=== PATIENT | male | born 1970 | race American Indian/Alaskan Native ===

== ENCOUNTER 2017-03-24 06:41 | Inpatient (IN) | payer OTHER ==
[2017-03-24 07:59] LABS: Basophils % (Auto) 0.4 % (0.0-1.8); Eosinophils % (Auto) 1.1 % (0.0-4.3); Hematocrit 42.1 % (35.5-45.6); Hemoglobin 13.7 gm/dl (11.8-15.2); Mean Corpuscular HGB Conc 33 % (32-34); Mean Corpuscular Hemoglobin 27 pg (28-32); Mean Corpuscular Volume 83 fl (84-94); Platelet Count 240 K/mm3 (140-440); Red Cell Distribution Width 13.5 % (13.2-15.2); White Blood Count 10.3 K/mm3 (4.5-11.0)
[2017-03-24 08:12] LABS: Anion Gap 19 mmol/L; BUN/Creatinine Ratio 13.33; Blood Urea Nitrogen 12 mg/dL (9-20); Carbon Dioxide 24 mmol/L (22-30); Chloride 100.6 mmol/L (98-107); Glucose 123 mg/dL (75-100); Potassium 3.3 mmol/L (3.6-5.0); Sodium 140 mmol/L (137-145)
[2017-03-24] MEDS ORDERED: NACL 0.9% 1000 ML 1,000 ML IV ONE (17:34)
[2017-03-24] MEDS ORDERED: MORPHINE IV ONE (17:35)
[2017-03-24] MEDS ORDERED: ZOFRAN IV ONE (17:35)
[2017-03-24] MEDS ORDERED: BABY ASPIRIN PO ONE (17:38)
--- NOTE | 2017-03-24 17:38 | Emergency Department Report ---
HPI - General Chief Complaint: Extremity Injury, Lower Time Seen by Provider: 03/24/17 17:12 - HPI HPI: The patient is a 46-year-old male who presents for evaluation of right foot and toe pain. The patient reports 1 week of constant pain to the right first and second toes, 10/10 in severity, throbbing in quality, exacerbated with attempting weightbearing. The patient also reports associated discoloration of the toes for the past 4-5 days, and purulent drainage or discharge. The patient denies trauma to the toes and foot, fever, also sensation or motor function, spreading erythema. ED Past Medical Hx - Past Medical History Previous Medical History?: Yes Hx Hypertension: Yes Hx Congestive Heart Failure: No Hx Diabetes: No Hx Asthma: No Hx COPD: No - Surgical History Past Surgical History?: No Additional Surgical History: Left leg with blood clot - Social History Smoking Status: Current Every Day Smoker Substance Use Type: Marijuana, Prescribed - Medications Home Medications: Home Medications Medication Instructions Recorded Confirmed Last Taken Type Ibuprofen [Motrin] 800 mg PO Q8HR PRN 10/31/15 10/31/15 1 Week Ago History Clindamycin [Clindamycin CAP] 150 mg PO Q8HR #21 capsule 11/01/15 Unknown Rx ED Review of Systems ROS: Stated complaint: RT FOOT BIG TOE SORE Other details as noted in HPI Constitutional: denies: fever ENT: denies: throat or neck pain Respiratory: denies: cough, shortness of breath Cardiovascular: denies: chest pain Endocrine: denies unexplained weight loss or gain Gastrointestinal: denies: abdominal pain, nausea Genitourinary: denies: dysuria Musculoskeletal: reports foot and toe pain Skin: denies: rash Neurological: denies: headache Hematological/Lymphatic: denies: easy bleeding or easy bruising Psych: denies sadness or hopelessness Physical Exam - Physical Exam Vital Signs: Vital Signs 03/24/17 07:28 Temperature 98.9 F Pulse Rate 117 H Respiratory 20 Rate Blood Pressure 171/104 O2 Sat by Pulse 98 Oximetry Physical Exam: General: well-nourished, well-developed, no acute distress Head: Normocephalic, atraumatic Eyes: normal sclera ENT: Mucous membranes are pale and dry Neck: trachea midline, neck supple, No neck stiffness, no cervical adenopathy Respiratory: Breath sounds equal bilaterally, no wheezing, rales, or rhonchi Cardio: S1 and S2 present, no murmurs, rubs, gallops, capillary refill is delayed Abdomen: Normoactive bowel sounds, soft abdomen, no tenderness Musc: Distal right foot dorsal and plantar erythema and swelling present, right first and second toes necrotic throughout, TTP, with purulent drainage to the proximal phalanx of great toe, dorsalis pedes pulse diminished but present Skin: No rash Neuro: no facial drooping, normal speech Psych: Normal affect ED Course Vital Signs 03/24/17 07:28 Temperature 98.9 F Pulse Rate 117 H Respiratory 20 Rate Blood Pressure 171/104 O2 Sat by Pulse 98 Oximetry ED Medical Decision Making - Lab Data Result diagrams: 03/24/17 07:38 03/24/17 07:38 - Medical Decision Making The patient was seen and examined by myself. The patient is placed on a registered nurse cardiac telemetry and continuous pulse ox. On initial evaluation, the patient was found to be in no distress. Evaluation orders were placed. Evaluation findings are consistent with saline to the distal foot, and necrosis and gangrene of the right first and second toes. The patient given IV morphine for his pain, IV Zosyn for treatment of cellulitis, and 1 L normal saline fluid bolus for treatment of dehydration. Lab results are grossly unremarkable. The on-call orthopedic surgeon Dr. Miller was contacted. He agrees to consultation requested the patient be made nothing by mouth for removal of gangrenous toes in the a.m. The on-call hospitalist was contacted. Dr. Bonds agrees to admit the patient. The patient is admitted in guarded condition. Critical care attestation.: If time is entered above; I have spent that time in minutes in the direct care of this critically ill patient, excluding procedure time. ED Disposition Clinical Impression: Gangrene of toe, Cellulitis of foot, right, Dehydration, Hypertensive urgency Disposition: OP ADMITTED IP TO THIS HOSP Is pt being admited?: Yes Does the pt Need Aspirin: Yes Condition: Fair Referrals: PRIMARY CARE, [Primary Care Provider] - 3-5 Days Time of Disposition: 17:38
[2017-03-24] MEDS: ZOSYN/NS 3.375GM/50ML 3.375 GM/50 ML BAG IV SCH (18:00)
[2017-03-24 18:26] LABS: INR 1.07 (0.87-1.13)
[2017-03-24 18:27] LABS: Partial Thromboplastin Time 26.7 Sec. (24.2-36.6)
--- NOTE | 2017-03-24 18:56 | Admit Criteria Form ---
Admission Criteria Documentation: SKIN AND WOUND CARE Clinical Indications for Inpatient Care (Place 'X' for any and all applicable criteria): Ongoing inpatient care may be indicated for pressure, venous, arterial, or neuropathic ulcers, with ANY ONE of the following (2)(3)(8)(9)(21)(25): [ ]I. Need for ANY ONE of the following(26) [ ]a) Pressure ulcer closure procedures [ ]b) Skin grafting [ ]c) Wound debridement [ ]d) Dressing change under general anesthesia [ ]e) Arterial revascularization procedures(19) (Also use Aortofemoral or Aortoiliac Bypass or Femoral Popliteal Bypass Criteria as appropriate) [ ]f) Amputation (Also use Foot: Transmetatarsal Amputation or Knee: Amputation Above or Below Knee Criteria as appropriate) [ ]g) Diverting colostomy [ ]h) Other significant surgical treatment [X ]II. Infection requiring inpatient care as indicated by ALL of the following (27) [X ]a) ANY ONE of the following signs of infection: [ ]i) Poorly approximated incision line. [ ]ii) Excessive drainage [ ]iii) Foul odor [X ]iv) Pus [ ]v) Increased redness [ ]vi) Breakdown in tissue after suture removal [ ]vii) Fever [ X]b) ANY ONE of the following findings: [ ]i) Mental status changes [X ]ii) Dehydration [ ]iii) Bacteremia [ ]iv) Perineal infection [ ]v) Hemodynamic instability [ ]vi) High-risk conditions, such as ANY ONE of the following: [ ]1) Poorly controlled diabetes [ ]2) Cirrhosis [ ]3) Neutropenia [ ]4) Asplenia [ ]5) HIV infection [ ]6) Immunosuppression Extended stay beyond goal length of stay for primary condition may be needed until ALL of the following are present(1)(2)(13)(21)(27): [ ]a) Tissue necrosis absent or treatment plan manageable at lower level of care [ ]b) Fistulas, tunneling, or underlying deep tissue infection absent or treated [ ]c) Purulence and tissue breakdown absent or improved [ ]d) Ulcer surgical repair absent or healing without complications [ ]e) Wound infection absent or manageable at lower level of care [ ]f) Comorbidities absent or manageable at lower level of care The original [employer] content created by [employer] has been revised. The portions of the content which have been revised are identified through the use of italic text or in bold, and [facility] has neither reviewed nor approved the modified material. All other unmodified content is copyright [facility]. Please see references footnoted in the original [facility] edition 2016 Admission Criteria Met: Yes
--- NOTE | 2017-03-24 22:35 | History and Physical Report ---
History of Present Illness Chief complaint: My foot hurts History of present illness: 46 YO Male with HTN, Nicotine Dependence presents to ED for evaluation. Pt states that he has experienced pain in his right foot and toes for the past week , with worsening pain over the past 2 days. Pain is 10/10 in severity, throbbing in quality, exacerbated with weight bearing, putting on shoes and socks. The patient also reports associated discoloration of the toes for the past 4-5 days, and purulent drainage or discharge. The patient denies trauma to the toes and foot, fever, chills, CP, palpitations. Past History Past Medical History: hypertension Past Surgical History: No surgical history, Other (reviewed) Social history: single, lives with family, smoking. denies: alcohol abuse, prescription drug abuse, IV drug use Family history: hypertension Medications and Allergies Allergies Allergy/AdvReac Type Severity Reaction Status Date / Time No Known Allergies Allergy Verified 10/31/15 12:07 Home Medications Medication Instructions Recorded Confirmed Last Taken Type No Known Home Medications [No 03/24/17 03/24/17 Unknown History Reported Home Medications] Active Meds: Active Medications Piperacillin Sod/Tazobactam Sod (Zosyn/Ns 3.375gm/50ml) 3.375 gm in 50 mls @ 100 mls/hr IV Q6HR CHANDA Last Admin: 03/24/17 18:00 Dose: 100 mls/hr Review of Systems All systems: negative Constitutional: other (foot pain) Exam - Constitutional Vitals: Temp Pulse Resp BP Pulse Ox 98.9 F 79 17 164/102 98 03/24/17 07:28 03/24/17 18:00 03/24/17 18:00 03/24/17 19:01 03/24/17 19:01 General appearance: Present: mild distress - EENT Eyes: Present: PERRL ENT: hearing intact, clear oral mucosa - Neck Neck: Present: supple, normal ROM - Respiratory Respiratory effort: normal Respiratory: bilateral: CTA - Cardiovascular Heart Sounds: Present: S1 & S2. Absent: rub, click - Extremities Extremities: pulses symmetrical, No edema Extremity abnormal: cyanosis, ulceration, erythema, pulses diminished Peripheral Pulses: within normal limits - Abdominal General gastrointestinal: Present: soft, non-tender, non-distended, normal bowel sounds Male genitourinary: Present: normal - Integumentary Integumentary: Present: clear, warm, dry - Musculoskeletal Musculoskeletal: gait normal, strength equal bilaterally - Psychiatric Psychiatric: appropriate mood/affect, intact judgment & insight - Neurologic Neurologic: CNII-XII intact, moves all extremities Results - Labs CBC & Chem 7: 03/24/17 07:38 03/24/17 07:38 Labs: Abnormal lab results 03/24/17 03/24/17 Range/Units 07:38 07:38 RBC 5.10 H (3.65-5.03) M/mm3 MCV 83 L (84-94) fl MCH 27 L (28-32) pg Potassium 3.3 L (3.6-5.0) mmol/L Glucose 123 H (75-100) mg/dL Assessment and Plan - Patient Problems (1) Cellulitis of foot, right Current Visit: Yes Status: Acute Plan to address problem: IV abx, wound care, ortho surgery consult, supportive care, pain control (2) Gangrene of toe Current Visit: Yes Status: Acute Plan to address problem: wound care, IV abx, supportive care. (3) Hypertensive urgency Current Visit: Yes Status: Acute Plan to address problem: monitor BP q shift, continue current therapy (4) Hypokalemia Current Visit: No Status: Acute Plan to address problem: repleted in ED (5) DVT prophylaxis Current Visit: Yes Status: Acute
[2017-03-24] MEDS ORDERED: MILK OF MAGNESIA PO PRN (23:33)
[2017-03-24] MEDS ORDERED: TYLENOL PO PRN (23:33)
[2017-03-24] MEDS ORDERED: DULCOLAX PR PRN (23:33)
[2017-03-24] MEDS ORDERED: ZOFRAN IV PRN (23:33)
[2017-03-24] MEDS ORDERED: VANCOMYCIN PHARMACY TO DOSE IV SCH (23:45)
[2017-03-25] MEDS ORDERED: VANCOMYCIN 1,750 MG in NACL 0.9% 500 ML 500 ML IV ONE
[2017-03-25] MEDS ORDERED: ZOSYN/NS 3.375GM/50ML 3.375 GM/50 ML BAG IV ONE (00:36)
[2017-03-25] MEDS: ZOSYN/NS 3.375GM/50ML 3.375 GM/50 ML BAG IV SCH ×5 (01:18→19:55)
[2017-03-25] MEDS: PERCOCET 5/325 PO PRN ×2 (02:13→19:53)
--- NOTE | 2017-03-25 07:41 | Vascular Lab Report ---
RIGHT LOWER EXTREMITY ARTERIAL DUPLEX: REASON FOR EXAM: Right gangrenous toe. COMMENTS ON THE RIGHT: Monophasic waveforms are seen proximally. Monophasic waveforms are seen distally. Decreased flow velocity noted in the distal vessels. Mild diffuse plaque is seen in all the vessels.. Findings are consistent with abnormal perfusion. Findings are inconsistent with the ability to heal distal wounds. IMPRESSION: RIGHT: No identifiable stenosis in the vessels examined. However waveforms suggest inflow disease. Clinical correlation recommended..
--- NOTE | 2017-03-25 07:42 | XRay Report ---
AP CHEST: HISTORY: Hypertension, preoperative evaluation AP view of the chest demonstrates a normal mediastinal and cardiac contour with clear lungs and normal bony and soft tissue structures. IMPRESSION: Unremarkable AP chest.
--- NOTE | 2017-03-25 07:50 | Vascular Lab Report ---
Right Lower Extremity Venous Duplex Study: Reason for Exam: History of abnormal blood clot formation. Comments on the Right: All veins visualized are freely compressible without evidence of internal echogenicity. Flow is spontaneous and phasic throughout. No evidence of acute or chronic thrombus is seen in any of the vessels visualized. Comments on the Left: A limited duplex study was done of the proximal veins of the left lower extremity. All veins visualized are freely compressible without evidence of internal echogenicity. Flow is spontaneous and phasic throughout. No evidence of acute or chronic thrombus is seen in any of the vessels visualized. Impression: No evidence of acute or chronic deep venous thrombosis in the right lower extremity.
--- NOTE | 2017-03-25 08:32 | XRay Report ---
Right first and second toes. History: Gangrene. Findings: There has been partial limitation of the fifth distal phalanx. There is lytic activity at the tip of the third distal phalanx. This may be chronic but acute osteomyelitis cannot be excluded. The bones of the first and second toes are unremarkable. Soft tissue gas is noted. Impression: Mild osteolytic activity at the tip of the third distal phalanx. Clinical correlation is advised.
[2017-03-25] MEDS ORDERED: SUBLIMAZE IV SCH (09:28)
[2017-03-25] MEDS ORDERED: ZOFRAN IV PRN (09:33)
[2017-03-25] MEDS ORDERED: DILAUDID IV PRN (09:33)
[2017-03-25] MEDS ORDERED: PEPCID PO NR (10:00)
[2017-03-25] MEDS ORDERED: VANCOMYCIN 1,250 MG in NACL 0.9% 250ML 250 ML IV SCH (10:00)
[2017-03-25] MEDS ORDERED: NEURONTIN PO NR (10:00)
[2017-03-25] MEDS ORDERED: VERSED IV NR (10:00)
[2017-03-25] MEDS: VANCOMYCIN 1,250 MG in NACL 0.9% 250ML 250 ML IV SCH ×2 (10:41→19:55)
--- NOTE | 2017-03-25 15:45 | Anesthesia Day of Surgery ---
Anesthesia Day of Surgery - Day of Surgery Patient Examined: Yes Patient H&P Reviewed: Yes Patient is NPO: Yes
--- NOTE | 2017-03-25 15:47 | Anesthesia Consultation ---
Anesthesia Consult and Med Hx Date of service: 03/25/17 - Airway Anesthetic Teeth Evaluation: Good ROM Head & Neck: Adequate Mental/Hyoid Distance: Adequate Mallampati Class: Class II Intubation Access Assessment: Probably Good - Pulmonary Exam CTA: Yes - Cardiac Exam Cardiac Exam: RRR - Pre-Operative Health Status ASA Pre-Surgery Classification: ASA3 Proposed Anesthetic Plan: General - Pulmonary Hx Smoking: Yes (current, has not smoked in 1 week) Hx Asthma: No COPD: No Hx Pneumonia: No - Cardiovascular System Hx Hypertension: Yes Hx Peripheral Vascular Disease: Yes (left leg stent) - Central Nervous System Hx Seizures: No Hx Back Pain: No - Endocrine Hx End Stage Renal Disease: No Hx Hyperthyroidism: No - Hematic Hx Anemia: No - Other Systems Hx Obesity: No
[2017-03-25] MEDS: LACTATED RINGERS 1,000 ML IV SCH ×2 (16:15→19:55)
--- NOTE | 2017-03-25 16:26 | Consultation ---
History of Present Illness - HPI Consult date: 03/25/17 Consult reason: other (gangrene right 1+2 toes) History of present illness: 46 years old admitted with gangrene involving the right first, second toe, Escher formation over the tip of the third. Nondiabetic. Past History Past Medical History: hypertension Past Surgical History: No surgical history, Other (reviewed) Social history: single, lives with family, smoking. denies: alcohol abuse, prescription drug abuse, IV drug use Family history: hypertension Medications and Allergies Allergies Allergy/AdvReac Type Severity Reaction Status Date / Time No Known Allergies Allergy Verified 10/31/15 12:07 Home Medications Medication Instructions Recorded Confirmed Last Taken Type No Known Home Medications [No 03/24/17 03/24/17 Unknown History Reported Home Medications] Active Meds: Active Medications Acetaminophen (Tylenol) 650 mg PO Q4H PRN PRN Reason: Pain MILD(1-3)/Fever >100.5/LANDRY Bisacodyl (Dulcolax) 10 mg ID QDAY PRN PRN Reason: Constipation unrelieved by MOM Celecoxib (Celebrex) 200 mg PO PREOP NR Stop: 03/25/17 23:00 Last Admin: 03/25/17 16:13 Dose: 200 mg Enoxaparin Sodium (Lovenox) 40 mg SUB-Q QDAY@2200 CHANDA Famotidine (Pepcid) 20 mg PO PREOP NR Stop: 03/25/17 23:00 Last Admin: 03/25/17 16:13 Dose: 20 mg Fentanyl (Sublimaze) 100 mcg IV ONCE CHANDA Stop: 03/25/17 23:00 Gabapentin (Neurontin) 300 mg PO PREOP NR Stop: 03/25/17 23:00 Last Admin: 03/25/17 16:13 Dose: 300 mg Hydromorphone HCl (Dilaudid) 0.5 mg IV Q10MIN PRN PRN Reason: Pain , Severe (7-10) Stop: 03/25/17 23:00 Piperacillin Sod/Tazobactam Sod (Zosyn/Ns 3.375gm/50ml) 3.375 gm in 50 mls @ 100 mls/hr IV Q6HR [facility] Last Infusion: 03/25/17 07:27 Dose: Infused Vancomycin HCl 1,250 mg/ (Sodium Chloride) 275 mls @ 166.667 mls/hr IV Q8H CHANDA Last Admin: 03/25/17 10:41 Dose: 166.667 mls/hr Lactated Ringer's (Lactated Ringers) 1,000 mls @ 100 mls/hr IV DIRECT [facility] Last Admin: 03/25/17 16:15 Dose: 100 mls/hr Magnesium Hydroxide (Milk Of Magnesia) 30 ml PO Q4H PRN PRN Reason: Constipation Midazolam HCl (Versed) 2 mg IV PREOP NR Stop: 03/25/17 23:59 Ondansetron HCl (Zofran) 4 mg IV Q8H PRN PRN Reason: N/V unrelieved by Reglan Oxycodone/Acetaminophen (Percocet 5/325) 1 tab PO Q6H PRN PRN Reason: Pain, Moderate (4-6) Last Admin: 03/25/17 02:13 Dose: 1 tab Vancomycin HCl (Vancomycin Pharmacy To Dose) 1 each IV PKCONSULT CHANDA PRN Reason: Protocol Review of Systems All systems: negative Physical Examination - Physical exam Eyes: PERRL ENT: Positive: clear oral mucosa Respiratory effort: normal Respiratory: bilateral: CTA Rhythm: regular Heart Sounds: Positive: S1 & S2 General gastrointestinal: Positive: soft, non-tender, non-distended, normal bowel sounds Integumentary: clear, warm, dry Neurologic: Positive: CNII-XII intact, moves all extremities, gait normal. Negative: focal deficits - Ankle & Foot right Foot appearance: other (Dry gangrene right great toe demarcated, distal to the MTP joint. Dry gangrene of the second toe demarcated distal to the middle of the proximal phalanx, Escher at the distal tip of the third toe with elevated nail. Pedal pulses palpated satisfactory, sensations intact.) - Cervical Spine Neck pain: none Tenderness with palpation: none Full ROM: yes ROM: flexion: normal ROM: extension: normal ROM: rotation right: normal ROM: rotation left: normal ROM: lateral flexion right: normal ROM: lateral flexion left: normal - Lumbar Spine Back pain: none Tenderness with palpation: none Appearance: normal Full ROM: yes ROM: flexion: normal ROM: extension: normal ROM: rotation right: normal ROM: rotation left: normal ROM: lateral flexion right: normal ROM: lateral flexion left: normal Assessment and Plan - Patient Problems (1) Gangrene of toe of right foot Current Visit: Yes Status: Acute Plan to address problem: Amputation 1st and 2ed toes, debridement of escher 3 ed toe
[2017-03-25] MEDS ORDERED: DIPRIVAN 10 MG/ML IV ONE (17:14)
[2017-03-25] MEDS ORDERED: DILAUDID ONE (17:16)
[2017-03-25] MEDS ORDERED: NACL 0.9% IR ONE (17:29)
--- NOTE | 2017-03-25 18:01 | Procedure Note ---
Date of procedure: 03/25/17 Pre-op diagnosis: Gangrene right 1st &2ed toes Post-op diagnosis: same Procedure: Amputation right 1&2 toes Anesthesia: GETA Surgeon: PIETER VÁZQUEZ Estimated blood loss: minimal Pathology: list (toes) Specimen disposition: to lab Condition: stable Disposition: PACU
[2017-03-25] MEDS ORDERED: XYLOCAINE MPF 2% ONE (18:04)
[2017-03-25] MEDS ORDERED: ZOFRAN ONE (18:04)
[2017-03-25] MEDS ORDERED: TORADOL ONE (18:12)
[2017-03-25] MEDS ORDERED: NORMODYNE IV ONE (18:27)
--- NOTE | 2017-03-25 19:04 | Post Anesthesia Evaluation ---
- Post Anesthesia Evaluation Patient Participated: Yes Airway Patent: Yes Stable Respiratory Function: Yes Temp > 96.8F: Yes Pain Manageable: Yes Adequeate Hydration: Yes Anesthesia Complications: No Block Receding Appropriately: Not Applicable
--- NOTE | 2017-03-25 21:22 | Progress Note ---
Assessment and Plan Assessment and plan: 1. Gangrene right toes with Cellulitis right foot Started on antibiotics Ortho consulted and plans amputation 2. HTN Not on medications Monitor BP 3. Noncomplaince Counseled regarding importance of adherence to treatment and follow-up appointments 4. DVT prophylaxis History Interval history: right foot pain Hospitalist Physical - Constitutional Vitals: Temp Pulse Resp BP Pulse Ox 98.1 F 74 16 145/96 96 03/25/17 19:00 03/25/17 19:00 03/25/17 19:53 03/25/17 19:00 03/25/17 19:00 General appearance: Present: no acute distress, well-nourished - EENT Eyes: Present: PERRL, EOM intact. Absent: scleral icterus, conjunctival injection - Neck Neck: Present: supple, normal ROM. Absent: masses or JVD - Respiratory Respiratory effort: normal Respiratory: bilateral: CTA, negative: rhonchi, wheezing - Cardiovascular Rhythm: regular Heart Sounds: Present: S1 & S2. Absent: systolic murmur - Extremities Extremities: no ischemia - Abdominal General gastrointestinal: soft, non-tender, non-distended, normal bowel sounds - Psychiatric Psychiatric: cooperative - Neurologic Neurologic: CNII-XII intact, no focal deficits Results - Labs CBC & Chem 7: 03/24/17 07:38 03/24/17 07:38 Labs: Laboratory Last Values WBC 10.3 K/mm3 (4.5-11.0) 03/24/17 07:38 RBC 5.10 M/mm3 (3.65-5.03) H 03/24/17 07:38 Hgb 13.7 gm/dl (11.8-15.2) 03/24/17 07:38 Hct 42.1 % (35.5-45.6) 03/24/17 07:38 MCV 83 fl (84-94) L 03/24/17 07:38 MCH 27 pg (28-32) L 03/24/17 07:38 MCHC 33 % (32-34) 03/24/17 07:38 RDW 13.5 % (13.2-15.2) 03/24/17 07:38 Plt Count 240 K/mm3 (140-440) 03/24/17 07:38 Lymph % (Auto) 28.2 % (13.4-35.0) 03/24/17 07:38 [place] % (Auto) 4.4 % (0.0-7.3) 03/24/17 07:38 Eos % (Auto) 1.1 % (0.0-4.3) 03/24/17 07:38 Baso % (Auto) 0.4 % (0.0-1.8) 03/24/17 07:38 Lymph # 2.9 K/mm3 (1.2-5.4) 03/24/17 07:38 [place] # 0.5 K/mm3 (0.0-0.8) 03/24/17 07:38 Eos # 0.1 K/mm3 (0.0-0.4) 03/24/17 07:38 Baso # 0.0 K/mm3 (0.0-0.1) 03/24/17 07:38 Seg Neutrophils % 65.9 % (40.0-70.0) 03/24/17 07:38 Seg Neutrophils # 6.8 K/mm3 (1.8-7.7) 03/24/17 07:38 PT 13.8 Sec. (12.2-14.9) 03/24/17 17:51 INR 1.07 (0.87-1.13) 03/24/17 17:51 APTT 26.7 Sec. (24.2-36.6) 03/24/17 17:51 Sodium 140 mmol/L (137-145) 03/24/17 07:38 Potassium 3.3 mmol/L (3.6-5.0) L 03/24/17 07:38 Chloride 100.6 mmol/L (98-107) 03/24/17 07:38 Carbon Dioxide 24 mmol/L (22-30) 03/24/17 07:38 Anion Gap 19 mmol/L 03/24/17 07:38 BUN 12 mg/dL (9-20) 03/24/17 07:38 Creatinine 0.9 mg/dL (0.8-1.5) 03/24/17 07:38 Estimated GFR > 60 ml/min 03/24/17 07:38 BUN/Creatinine Ratio 13.33 % 03/24/17 07:38 Glucose 123 mg/dL (75-100) H 03/24/17 07:38 Lactic Acid 1.10 mmol/L (0.7-2.0) 03/24/17 17:51 Calcium 9.0 mg/dL (8.4-10.2) 03/24/17 07:38 C-Reactive Protein 0.30 mg/dL (0.00-1.30) 03/24/17 17:51
[2017-03-25] MEDS: LOVENOX SUB-Q SCH (21:38)
[2017-03-25] MEDS: MORPHINE IV PRN (21:46)
--- NOTE | 2017-03-25 22:41 | Operative Report ---
PREOPERATIVE DIAGNOSIS: Gangrene, right first and second toe, tip of the third toe. POSTOPERATIVE DIAGNOSES: 1. Amputation, right first and second toe. 2. Debridement of the eschar third toe. SURGEON: Carrie Garcia MD SPOT WELDER LINE: Jo-Ann Fernandes CSA. ANESTHESIA: General. BLOOD LOSS: Minimal. DESCRIPTION OF PROCEDURE: The patient was taken to surgery suite, satisfactory analgesia obtained with general anesthetics. Right lower limb prepped with ChloraPrep, satisfactorily draped. The correct patient, procedure and site was confirmed. The first toe was identified and isolated. Incision was made along the demarcation and was deepened. Skin flaps were developed and the toe was disarticulated the MTP joint. The proximal flap appeared adequate circulation. In a similar fashion, the incision was made along the line of demarcation, deepened through the full thickness, skin flaps were developed and the phalanx was then disarticulated at the metatarsophalangeal joint. The flap incision edges were then revised. The wound was then closed with 3-0 nylon sutures and the closure appeared satisfactory. At this time, the eschar was noticed over the distal tip of the third toe. This was then debrided by blunt dissection and the hyperkeratotic needle was extracted. Wound was irrigated again. Sterile dressings were applied. The patient was transferred to recovery room in satisfactory condition. He tolerated the procedure well and at the completion of procedure, counts were accurate. JOB# [id number] JAMIA/RAMSEY AMOR
[2017-03-26] MEDS: ZOSYN/NS 3.375GM/50ML 3.375 GM/50 ML BAG IV SCH ×4 (00:53→17:52)
[2017-03-26] MEDS: PERCOCET 5/325 PO PRN ×5 (01:19→22:20)
[2017-03-26] MEDS: VANCOMYCIN 1,250 MG in NACL 0.9% 250ML 250 ML IV SCH ×3 (01:20→17:54)
[2017-03-26] MEDS: MORPHINE IV PRN ×2 (02:52→13:35)
--- NOTE | 2017-03-26 07:38 | Progress Note ---
Assessment and Plan S/P amputation giovanni 1-2 toes dressing dry, no new changes, recuperated well from anesthesia. Subjective Date of service: 03/26/17 Objective Vital signs: Vital Signs - 12hr 03/25/17 03/25/17 03/25/17 19:53 21:46 21:58 Temperature Pulse Rate [ Left From Monitor] Respiratory 16 18 18 Rate Blood Pressure [Left Arm] O2 Sat by Pulse Oximetry 03/26/17 03/26/17 03/26/17 00:07 01:19 02:52 Temperature 98.5 F Pulse Rate [ 80 Left From Monitor] Respiratory 18 18 18 Rate Blood Pressure 137/85 [Left Arm] O2 Sat by Pulse 99 Oximetry 03/26/17 07:08 Temperature Pulse Rate [ Left From Monitor] Respiratory 18 Rate Blood Pressure [Left Arm] O2 Sat by Pulse Oximetry - Labs CBC & BMP: 03/24/17 07:38 03/24/17 07:38
[2017-03-26] MEDS: LACTATED RINGERS 1,000 ML IV SCH (17:52)
--- NOTE | 2017-03-26 22:02 | Progress Note ---
Assessment and Plan Assessment and plan: 1. Gangrene right toes Started on antibiotics Ortho consulted and status post amputation first and second right toes Pain control medications Consult PT 2. HTN Not on medications at home Start amlodipine and continue to monitor BP 3. Noncomplaince Counseled regarding importance of adherence to treatment and follow-up appointments 4. DVT prophylaxis History Interval history: s/p amputation right first and second toes, c/o pain Hospitalist Physical - Constitutional Vitals: Temp Pulse Resp BP Pulse Ox 98.2 F 97 H 16 162/87 99 03/26/17 16:00 03/26/17 16:00 03/26/17 20:52 03/26/17 16:00 03/26/17 07:00 General appearance: Present: no acute distress, well-nourished - EENT Eyes: Present: PERRL, EOM intact. Absent: scleral icterus, conjunctival injection - Neck Neck: Present: supple, normal ROM. Absent: masses or JVD - Respiratory Respiratory effort: normal Respiratory: bilateral: CTA, negative: rhonchi, wheezing - Cardiovascular Rhythm: regular Heart Sounds: Present: S1 & S2. Absent: systolic murmur - Extremities Extremities: abnormal (dressing in place right foot) - Abdominal General gastrointestinal: soft, non-tender, non-distended, normal bowel sounds - Neurologic Neurologic: no focal deficits Results - Labs CBC & Chem 7: 03/24/17 07:38 03/24/17 07:38 Labs: Laboratory Last Values WBC 10.3 K/mm3 (4.5-11.0) 03/24/17 07:38 RBC 5.10 M/mm3 (3.65-5.03) H 03/24/17 07:38 Hgb 13.7 gm/dl (11.8-15.2) 03/24/17 07:38 Hct 42.1 % (35.5-45.6) 03/24/17 07:38 MCV 83 fl (84-94) L 03/24/17 07:38 MCH 27 pg (28-32) L 03/24/17 07:38 MCHC 33 % (32-34) 03/24/17 07:38 RDW 13.5 % (13.2-15.2) 03/24/17 07:38 Plt Count 240 K/mm3 (140-440) 03/24/17 07:38 Lymph % (Auto) 28.2 % (13.4-35.0) 03/24/17 07:38 [place] % (Auto) 4.4 % (0.0-7.3) 03/24/17 07:38 Eos % (Auto) 1.1 % (0.0-4.3) 03/24/17 07:38 Baso % (Auto) 0.4 % (0.0-1.8) 03/24/17 07:38 Lymph # 2.9 K/mm3 (1.2-5.4) 03/24/17 07:38 [place] # 0.5 K/mm3 (0.0-0.8) 03/24/17 07:38 Eos # 0.1 K/mm3 (0.0-0.4) 03/24/17 07:38 Baso # 0.0 K/mm3 (0.0-0.1) 03/24/17 07:38 Seg Neutrophils % 65.9 % (40.0-70.0) 03/24/17 07:38 Seg Neutrophils # 6.8 K/mm3 (1.8-7.7) 03/24/17 07:38 PT 13.8 Sec. (12.2-14.9) 03/24/17 17:51 INR 1.07 (0.87-1.13) 03/24/17 17:51 APTT 26.7 Sec. (24.2-36.6) 03/24/17 17:51 Sodium 140 mmol/L (137-145) 03/24/17 07:38 Potassium 3.3 mmol/L (3.6-5.0) L 03/24/17 07:38 Chloride 100.6 mmol/L (98-107) 03/24/17 07:38 Carbon Dioxide 24 mmol/L (22-30) 03/24/17 07:38 Anion Gap 19 mmol/L 03/24/17 07:38 BUN 12 mg/dL (9-20) 03/24/17 07:38 Creatinine 0.9 mg/dL (0.8-1.5) 03/24/17 07:38 Estimated GFR > 60 ml/min 03/24/17 07:38 BUN/Creatinine Ratio 13.33 % 03/24/17 07:38 Glucose 123 mg/dL (75-100) H 03/24/17 07:38 Lactic Acid 1.10 mmol/L (0.7-2.0) 03/24/17 17:51 Calcium 9.0 mg/dL (8.4-10.2) 03/24/17 07:38 C-Reactive Protein 0.30 mg/dL (0.00-1.30) 03/24/17 17:51
[2017-03-26] MEDS: LOVENOX SUB-Q SCH (22:17)
[2017-03-27] MEDS: ZOSYN/NS 3.375GM/50ML 3.375 GM/50 ML BAG IV SCH ×3 (00:27→13:45)
[2017-03-27] MEDS: VANCOMYCIN 1,250 MG in NACL 0.9% 250ML 250 ML IV SCH ×2 (03:36→11:27)
[2017-03-27] MEDS: PERCOCET 5/325 PO PRN ×3 (03:41→14:07)
--- NOTE | 2017-03-27 08:15 | Progress Note ---
Assessment and Plan - Patient Problems (1) Gangrene of toe of right foot Status: Acute Plan to address problem: Disch per Int Medicine, follow up in 2 weeks. crutches/ walker, partial wt bearing., Subjective Date of service: 03/27/17 Interval history: status post amputation first and second toe. Doing well. Objective Vital signs: Vital Signs - 12hr 03/26/17 03/27/17 03/27/17 20:52 00:00 08:09 Temperature 99.8 F H 97.3 F L Pulse Rate [ 88 78 Left From Monitor] Respiratory 16 20 18 Rate Blood Pressure 150/88 156/89 [Left Arm] O2 Sat by Pulse 99 98 Oximetry - Labs CBC & BMP: 03/24/17 07:38 03/24/17 07:38
--- NOTE | 2017-03-27 09:07 | Discharge Summary ---
Providers - Providers Date of Admission: 03/24/17 23:33 Date of discharge: 03/27/17 Attending physician: GONZALEZ WIGGINS MD 03/24/17 23:38 Consult to Wound/ET Nurse [CONS] Routine Reason For Exam: wound eval 03/25/17 19:30 Physical Therapy Evaluation and Treat [CONS] Routine Comment: Reason For Exam: post op Weight bearing status?: Partial wt bearing Assistive devices?: Yes Primary care physician: [facility] [facility] Hospitalization Reason for admission: foot pain Condition: Stable Hospital course: 46 YO Male with HTN, Nicotine Dependence presents to ED for evaluation. Pt states that he has experienced pain in his right foot and toes for the past week , with worsening pain over the past 2 days. Pain is 10/10 in severity, throbbing in quality, exacerbated with weight bearing, putting on shoes and socks. The patient also reports associated discoloration of the toes for the past 4-5 days, and purulent drainage or discharge. The patient denies trauma to the toes and foot, fever, chills, CP, palpitations. Patient was started on empiric antibiotic coverage. We'll listen by orthopedic surgeon and did undergo completion of first and second toes of the right foot. This was considered a surgical treatment. I did give the patient with a few days of antibiotics on discharge. He is clinically stable to be discharged with home health. We did discuss need to be medication compliant and also need to avoid tobacco patient verbalized understanding. He is to follow with orthopedic surgeon outpatient in 2 weeks this has been discussed with the patient and he verbalized understanding Discharge diagnosis 1. Gangrene right toes 2. HTN 3. 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 Tobacco dependence 5. Noncomplaince Disposition: DC/TX HOME UNDER HOME HEALTH Time spent for discharge: 35 MINS Core Measure Documentation - Palliative Care Palliative Care/ Comfort Measures: Not Applicable - Core Measures Any of the following diagnoses?: none - VTE Discharge Requirements Deep Vein Thrombosis/Pulmonary Embolism Present on Admission: No Exam - Physical Exam Narrative exam: VITAL SIGNS: Reviewed. GENERAL: The patient appeared well nourished and normally developed. Vital signs as documented. HEAD: No signs of head trauma. EYES: Pupils are equal. Extraocular motions intact. EARS: Hearing grossly intact. MOUTH: Oropharynx is normal. NECK: No adenopathy, no JVD. CHEST: Chest with clear breath sounds bilaterally. No wheezes, rales, or rhonchi. CARDIAC: Regular rate and rhythm. S1 and S2, without murmurs, gallops, or rubs. VASCULAR: No Edema. Peripheral pulses normal and equal in all extremities. ABDOMEN: Soft, without detectable tenderness. No sign of distention. No rebound or guarding, and no masses palpated. Bowel Sounds normal. MUSCULOSKELETAL: A stress into the right foot area. Patient underwent amputation of the first and second toes of the right foot Extremities without clubbing, cyanosis or edema. NEUROLOGIC EXAM: Alert and oriented x 3. No focal sensory or strength deficits. Speech normal. Follows commands. PSYCHIATRIC: Mood normal. SKIN: No rash or lesions. - Constitutional Vitals: Temp Pulse Resp BP Pulse Ox 97.3 F L 78 18 156/89 98 03/27/17 08:09 03/27/17 08:09 03/27/17 08:09 03/27/17 08:09 03/27/17 08:09 Plan Activity: advance as tolerated, fall precautions Diet: low fat Special Instructions: record daily BP diary Follow up with: PRIMARY CAREMD [Primary Care Provider] - 3-5 Days PIETER VÁZQUEZ MD [Staff Physician] - 14 Days Prescriptions: amLODIPine [Norvasc] 10 mg PO QDAY #30 tablet Doxycycline [Vibramycin CAP] 100 mg PO Q12HR #14 capsule oxyCODONE /ACETAMINOPHEN [Percocet 5/325 mg] 2 tab PO Q6H PRN #14 tablet PRN Reason: Pain, Moderate (4-6)
[2017-03-27] MEDS: LACTATED RINGERS 1,000 ML IV SCH (09:27)
[2017-03-27] MEDS ORDERED: NORVASC PO SCH (10:00)
[2017-03-27 16:40] VITALS: BP 141/80
== END 2017-03-27 19:29 | disposition home health service (06) | DRG 580 ==
LOC: ED 06:41 → 3A 23:33
PROVIDERS: ADMIT Internal Medicine; ATTEND Internal Medicine
PROC: 0Y6P0Z0 Detachment at Right 1st Toe, Complete, Open Approach (ICD-10-PCS; principal; 2017-03-25)
PROC: 0Y6R0Z0 Detachment at Right 2nd Toe, Complete, Open Approach (ICD-10-PCS; 2017-03-25)
PROC: 0HDMXZZ Extraction of Right Foot Skin, External Approach (ICD-10-PCS; 2017-03-25)
DX: L03.115 Cellulitis of right lower limb (principal); I96 Gangrene, not elsewhere classified; I10 Essential (primary) hypertension; E87.6 Hypokalemia; F17.210 Nicotine dependence, cigarettes, uncomplicated; E86.0 Dehydration; I16.0 Hypertensive urgency; Z91.14 Patient's other noncompliance with medication regimen; Z82.49 Family history of ischemic heart disease and other diseases of the circulatory system
CPT/HCPCS: 36415; 71010; 80048; 80202; 82140; 85025; 85610; 85730; 86140; 88305; 88311; 93005; 93010; 96365; 96375; J1170; J1650; J1885; J2250; J2270; J2405; J2543; J2704; J3370; J7030; J7040; J7050; J7120

== ENCOUNTER 2017-05-28 09:49 | Outpatient (CLI) | payer OTHER ==
[2017-05-28] MEDS ORDERED: XYLOCAINE TOPICAL 4% TP ONE ×2 (11:19→14:19)
[2017-05-29] MEDS ORDERED: NACL ONE (16:35)
== END 2017-05-28 09:50 | disposition home or self-care (01) ==
LOC: WOUND 09:49
PROVIDERS: ATTEND Nurse Practitioner
DX: T81.89XA Other complications of procedures, not elsewhere classified, initial encounter (principal); I70.221 Atherosclerosis of native arteries of extremities with rest pain, right leg; I10 Essential (primary) hypertension; I73.9 Peripheral vascular disease, unspecified; F17.200 Nicotine dependence, unspecified, uncomplicated; Z98.62 Peripheral vascular angioplasty status; Z89.419 Acquired absence of unspecified great toe; Y83.8 Other surgical procedures as the cause of abnormal reaction of the patient, or of later complication, without mention of misadventure at the time of the procedure; Y92.89 Other specified places as the place of occurrence of the external cause
CPT/HCPCS: 87075; 87116; G0463; 87076; 87186; 99215

== ENCOUNTER 2017-05-28 13:12 | Inpatient (IN) | payer OTHER ==
[2017-05-28] MEDS ORDERED: NACL 0.9% 500 ML 500 ML IV ONE (13:32)
[2017-05-28 13:58] LABS: Basophils % (Auto) 0.5 % (0.0-1.8); Eosinophils % (Auto) 0.5 % (0.0-4.3); Hemoglobin 14.1 gm/dl (11.8-15.2); Mean Corpuscular HGB Conc 33 % (32-34); Mean Corpuscular Hemoglobin 27 pg (28-32); Mean Corpuscular Volume 83 fl (84-94); Platelet Count 251 K/mm3 (140-440); Red Cell Distribution Width 14.9 % (13.2-15.2); White Blood Count 9.7 K/mm3 (4.5-11.0)
[2017-05-28 14:08] LABS: INR 1.05 (0.87-1.13)
[2017-05-28 14:25] LABS: Alanine Aminotransferase 16 units/L (7-56); Albumin 4.3 g/dL (3.9-5); Albumin/Globulin Ratio 1.2 %; Alkaline Phosphatase 93 units/L (35-129); Anion Gap 19 mmol/L; BUN/Creatinine Ratio 11.81; Blood Urea Nitrogen 13 mg/dL (9-20); Calcium 9.1 mg/dL (8.4-10.2); Carbon Dioxide 25 mmol/L (22-30); Chloride 98.4 mmol/L (98-107); Glucose 150 mg/dL (75-100); Potassium 3.7 mmol/L (3.6-5.0); Sodium 139 mmol/L (137-145); Total Protein 7.8 g/dL (6.3-8.2)
--- NOTE | 2017-05-28 16:17 | XRay Report ---
PORTABLE CHEST: Fever. An AP portable view of the chest demonstrates a normal cardiac contour considering the limits of this technique. The lungs are clear with no evidence of infiltrate, fluid or failure. IMPRESSION: Normal portable chest.
[2017-05-28] MEDS ORDERED: PERCOCET 5/325 PO ONE (16:23)
--- NOTE | 2017-05-28 17:09 | Emergency Department Report ---
ED Extremity Problem HPI - General Chief complaint: Extremity Problem,Nontraumatic Stated complaint: WOUND CHECK Time Seen by Provider: 05/28/17 16:11 Source: patient Mode of arrival: Ambulatory Limitations: Physical Limitation - History of Present Illness Initial comments: 47-year-old male with history of peripheral vascular disease is presenting to the ED sent here by his vascular surgery provider. Patient states he has had the clinic getting his wound care from previous amputation of the first and second digits of the right foot when the provider stated that she could not find a pulse of his right foot and told the patient to come immediately to the ED. Patient has no complaints. Patient denies pain or coolness of the leg. -: Gradual Location: right, lower extremity History of Same: Yes Severity scale (0 -10): 0 Quality: other (no pain ) Improves with: nothing Worsens with: nothing - Related Data Home Medications Medication Instructions Recorded Confirmed Last Taken Ibuprofen [Motrin] 800 mg PO Q4-6H PRN 05/28/17 05/28/17 05/28/17 Ranitidine HCl [Heartburn Relief] 75 mg PO QDAY PRN 05/28/17 05/28/17 Unknown Previous Rx's Medication Instructions Recorded Last Taken Type amLODIPine [Norvasc] 10 mg PO QDAY #30 tablet 03/27/17 05/26/17 Rx oxyCODONE /ACETAMINOPHEN [Percocet 2 tab PO Q6H PRN #14 tablet 03/27/17 Unknown Rx 5/325 mg] Allergies Allergy/AdvReac Type Severity Reaction Status Date / Time No Known Allergies Allergy Verified 10/31/15 12:07 ED Review of Systems ROS: Stated complaint: WOUND CHECK Other details as noted in HPI Constitutional: denies: chills, fever Eyes: denies: eye pain, eye discharge, vision change ENT: denies: ear pain, throat pain Respiratory: denies: cough, shortness of breath, wheezing Cardiovascular: denies: chest pain, palpitations Endocrine: no symptoms reported Gastrointestinal: denies: abdominal pain, nausea, diarrhea Genitourinary: denies: urgency, dysuria Musculoskeletal: denies: back pain, joint swelling, arthralgia Skin: denies: rash, lesions Neurological: denies: headache, weakness, paresthesias Psychiatric: denies: anxiety, depression Hematological/Lymphatic: denies: easy bleeding, easy bruising ED Past Medical Hx - Past Medical History Previous Medical History?: Yes Hx Hypertension: Yes Hx Congestive Heart Failure: No Hx Diabetes: No Hx Deep Vein Thrombosis: Yes Hx Seizures: No Hx Asthma: No Hx COPD: No Additional medical history: Vascular Disease - Surgical History Additional Surgical History: Left leg with blood clot,. 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 - Social History Smoking Status: Current Every Day Smoker Substance Use Type: None - Medications Home Medications: Home Medications Medication Instructions Recorded Confirmed Last Taken Type amLODIPine [Norvasc] 10 mg PO QDAY #30 tablet 03/27/17 05/28/17 05/26/17 Rx oxyCODONE /ACETAMINOPHEN [Percocet 2 tab PO Q6H PRN #14 tablet 03/27/17 Unknown Rx 5/325 mg] Ibuprofen [Motrin] 800 mg PO Q4-6H PRN 05/28/17 05/28/17 05/28/17 History Ranitidine HCl [Heartburn Relief] 75 mg PO QDAY PRN 05/28/17 05/28/17 Unknown History ED Physical Exam - General Limitations: Physical Limitation General appearance: alert, in no apparent distress - Head Head exam: Present: atraumatic, normocephalic - Eye Eye exam: Present: normal appearance - ENT ENT exam: Present: mucous membranes moist - Neck Neck exam: Present: normal inspection - Respiratory Respiratory exam: Present: normal lung sounds bilaterally. Absent: respiratory distress - Cardiovascular Cardiovascular Exam: Present: regular rate, normal rhythm. Absent: systolic murmur, diastolic murmur, rubs, gallop - GI/Abdominal GI/Abdominal exam: Present: soft, normal bowel sounds - Rectal Rectal exam: Present: deferred - Extremities Exam Extremities exam: Present: other (right lower extremity: pt has dopplerable PT pulse, cannot appreciate DP pulse with doppler. No pulse apprecaited on palpation. amputated 1st and second digit, healing well. Foot is warm. Cap refill delayed. left lower extremity DP and Pt pulses appreciated ). Absent: pedal edema, calf tenderness - Back Exam Back exam: Present: normal inspection - Neurological Exam Neurological exam: Present: alert, oriented X3 - Psychiatric Psychiatric exam: Present: normal affect, normal mood - Skin Skin exam: Present: warm, dry, intact, normal color. Absent: rash ED Course Vital Signs 05/28/17 05/28/17 05/28/17 13:28 14:00 14:10 Temperature 98.8 F Pulse Rate 139 H 97 H Respiratory 16 19 Rate Blood Pressure 158/104 143/90 O2 Sat by Pulse 98 97 96 Oximetry 05/28/17 05/28/17 05/28/17 14:20 14:30 14:40 Temperature Pulse Rate 93 H 93 H 93 H Respiratory 20 20 21 Rate Blood Pressure 143/90 133/82 133/82 O2 Sat by Pulse 97 94 97 Oximetry 05/28/17 05/28/17 05/28/17 14:50 15:00 15:10 Temperature Pulse Rate 88 88 88 Respiratory 21 21 20 Rate Blood Pressure 133/82 133/84 133/84 O2 Sat by Pulse 98 98 99 Oximetry 05/28/17 05/28/17 05/28/17 15:20 15:30 15:40 Temperature Pulse Rate 92 H 80 98 H Respiratory 19 20 12 Rate Blood Pressure 133/84 153/108 153/108 O2 Sat by Pulse 99 97 98 Oximetry 05/28/17 05/28/17 05/28/17 15:50 16:00 16:10 Temperature Pulse Rate 99 H 78 81 Respiratory 13 17 20 Rate Blood Pressure 153/108 153/108 161/96 O2 Sat by Pulse 99 100 99 Oximetry 05/28/17 05/28/17 05/28/17 16:20 16:30 16:40 Temperature Pulse Rate 90 96 H 88 Respiratory 19 21 20 Rate Blood Pressure 161/96 154/104 161/96 O2 Sat by Pulse 98 99 99 Oximetry 05/28/17 05/28/17 05/28/17 17:00 17:30 18:00 Temperature Pulse Rate 88 88 85 Respiratory 18 18 17 Rate Blood Pressure 149/101 143/96 151/96 O2 Sat by Pulse 98 99 Oximetry 05/28/17 05/28/17 05/28/17 18:30 19:00 19:30 Temperature Pulse Rate 79 77 78 Respiratory 18 18 16 Rate Blood Pressure 143/96 152/93 157/97 O2 Sat by Pulse 98 97 99 Oximetry 05/28/17 20:00 Temperature Pulse Rate Respiratory Rate Blood Pressure 161/90 O2 Sat by Pulse 100 Oximetry - Reevaluation(s) Reevaluation #1: 05/28/17 17:09 pt resting comfortably, he states he has no complaints Reevaluation #2: 05/28/17 18:46 at 5 :50 pm I discussed this case with vascular surgeon Dr. Del Toro. His recommendation is that pt is stable to follow up outpt, he will see pt in his office tomorrow. He stated reason the ultrasound findings were not acute findings and the patient should not be admitted are as follows: the patient has PT artery that is still perfusing right foot, the patient has no acute pain, no acute neurological deficits, can still ambulate. ED Medical Decision Making - Lab Data Result diagrams: 05/28/17 13:40 05/28/17 13:40 - EKG Data -: EKG Interpreted by Me EKG shows normal: sinus rhythm (89), axis (negative), intervals (447), QRS complexes (86) Rate: normal - EKG Data When compared to previous EKG there are: previous EKG unavailable Interpretation: no acute changes - Medical Decision Making 47-year-old male with past medical history of peripheral vascular disease.\ 1) Lactic acidosis At this time I am unsure of cause. I will admit to medicine service for continued IV hydration. DDX: sepsis unlikely as pt has no complaints, no obvious source 2) peripheral vascular disease chronic for patient Dr. Del Toro-vascular surgery states there is nothing to do overnight, this is not an acute condition. He does not recommend heparin drip at this time he will see patient during inpatient consult. Critical care attestation.: If time is entered above; I have spent that time in minutes in the direct care of this critically ill patient, excluding procedure time. ED Disposition Clinical Impression: Lactic acid acidosis, Peripheral vascular disease Disposition: OP ADMIT IP TO THIS HOSP Is pt being admited?: Yes Does the pt Need Aspirin: No Condition: Stable
[2017-05-28] MEDS ORDERED: NACL 0.9% 1000 ML 1,000 ML IV ONE (18:05)
--- NOTE | 2017-05-28 18:11 | Admit Criteria Form ---
Admission Criteria Documentation: VASCULAR DISEASE GRG Clinical Indications for Admission to Inpatient Care (Place 'X' for any and all applicable criteria): Hospital admission is needed for appropriate care of the patient because of ANY ONE of the following (1)(2)(3)(4): [ ]I. Life-threatening or limb-threatening skin ulcer as indicated by ANY ONE of the following(5): [ ]a) Surrounding cellulitis unresponsive to outpatient treatment [ ]b) Wet gangrene [ ]c) Lymphangitis [ ]d) Bacteremia [ ]II. Gangrene requiring intensity and frequency of care not manageable to outpatient, emergency, or observation level of care(5) [ ]III. Severe pain requiring acute inpatient management [ ]IV. Interventional revascularization (eg, surgery, thrombolysis) needed (eg , critical limb ischemia)(21) [ ]V. Urgent inpatient IV anticoagulation needed due to ALL of the following: [ ]a) Temporary subtherapeutic anticoagulation unacceptable because of high risk of short-term venous or arterial thromboembolism due to ANY ONE of the following(7)(8)(9): [ ]i) Venous thromboembolism within the past 12 months [ ]ii) Underlying malignancy [ ]iii) Patient with mechanical cardiac valve(10)(11) [ ]iv) Underlying hypercoagulable state (eg, protein C or protein S deficiency, antithrombin deficiency, antiphospholipid antibodies) [ ]v) Patient at high risk of thromboembolism (eg, status post orthopedic surgery, history of recurrent venous thromboembolism) [ ]vi) Atrial fibrillation with rheumatic valvular heart disease [ ]vii) Atrial fibrillation with 3 or MORE of the following : [ ]1) Congestive heart failure [ ]2) Hypertension [ ]3) Age 65 years or older [ ]4) Diabetes mellitus [ ]5) History of thromboembolism (eg, stroke, TIA , or systemic embolization) more than 3 months ago [ ]6) Female gender [ ]b) Contraindications to outpatient use of "bridging" agent or alternative oral anticoagulant as indicated by ALL of the following: [ ]i) Contraindication to outpatient use of low-molecular -weight heparin as "bridging" agent as indicated by ANY ONE of the following(8) : [ ]1) Documented current or history of heparin- induced thrombocytopenia(12) [ ]2) Severe thrombocytopenia (eg, platelet count less than 50,000/mm3 (50 x109/L)) [ ]3) Documented allergy to heparin, low- molecular-weight heparin, or pork products [ ]4) Renal failure (creatinine clearance < 30 mL /min/1.73m2 (0.50 mL/sec/1.73m2) or on dialysis) [ ]5) Inability to manage self-injection (eg, by patient, caregiver, or visiting nurse) [ ]ii) Contraindication to outpatient use of fondaparinux as "bridging" agent as indicated by ANY ONE of the following(13)(14)(15)(16): [ ]1) Severe thrombocytopenia (eg, platelet count less than 50,000/mm3 (50 x109/L)) [ ]2) Hypersensitivity to fondaparinux, related drugs, or product components [ ]3) Renal failure (creatinine clearance less than 30 mL/min/1.73m2 (0.50 mL/sec/1.73m2) or on dialysis) [ ]4) Inability to manage self-injection (eg, by patient, caregiver, or visiting nurse) [ ]iii) Oral direct thrombin inhibitor (eg, dabigatran) or oral coagulation factor Xa inhibitor (eg, rivaroxaban) not appropriate as oral anticoagulation (eg, indication not appropriate) or contraindicated (eg, hypersensitivity, renal failure)(13)(16)(17)(18)(19)(20) [X ]. Suspected severe acute ischemia due to peripheral vascular disease as indicated by ANY ONE of the following(5)(6): [ ]a) Tissue necrosis [ ]b) Severe pain [ ]c) Acute pulselessness [X]d) Other evidence of acute severe ischemia (eg, lactic acidosis , motor dysfunction) [ ]VII. Acute or newly diagnosed major vessel (eg, aorta) dissection, rupture, or leakage(5)(6)(22)(23) [ ]VIII.Vascular Disease and ALL of the following: [ ]a) Symptom or finding for which emergency and observation care have failed or are not considered appropriate (Use General Criteria: Observation Care as appropriate) [ ]b) Presence of ANY ONE of the following: [ ]i) A General Admission Criteria [ ]ii) A Pediatric General Admission Criteria The original [facility] content created by [facility] [employer] has been revised. The portions of the content which have been revised are identified through the use of italic text or in bold, and [facility] has neither reviewed nor approved the modified material. All other unmodified content is copyright [facility]. Please see references footnoted in the original [facility] edition 2016 Admission Criteria Met: Yes
[2017-05-28 18:45] LABS: Bacteria,Urine 3+ /HPF (Negative); Bilirubin,Urine NEG (Negative); Blood,Urine NEG (Negative); Ketones,Urine NEG (Negative); Leukocyte Esterase,Urine MOD (Negative); Mucus,Urine FEW /HPF; Nitrite,Urine POS (Negative); Protein,Urine <15 mg/dL mg/dL (Negative); Urobilinogen,Urine < 2.0 mg/dL (<2.0)
--- NOTE | 2017-05-29 04:22 | History and Physical Report ---
History of Present Illness Date of examination: 05/28/17 Date of admission: 05/28/17 20:27 History of present illness: This is a 47-year-old man with a history of peripheral vascular disease, hypertension was sent over from wound care because they couldn't palpate his pulse. In the emergency room he was found to have a palpable pulse but his lactic acid was elevated and he had an abnormal therefore is being admitted for further evaluation Review of systems Constitutional: no fever, no chills, no weight loss Ears, eyes, nose, mouth and throat: no nasal congestion, no nasal discharge, no sinus pressure, no vision change, no red eye. Neck: No neck pain or rigidity. Cardiovascular: chest pain, no orthopnea, no palpitations, no leg swelling Respiratory: No shortness of breath, no cough, no congestion, no wheezing Gastrointestinal: abdominal pain, hematochezia, no nausea, no vomiting Genitourinary : no dysuria, frequency , no hematuria Musculoskeletal: no joint swelling or muscle ache Integumentary: no rash, no pruritis Neurological: no parathesias, no focal weakness Endocrine: no cold or heat intolerance, no polyuria or polydipsia Hematologic/Lymphatic: no easy bruising, no easy bleeding, no gland swelling Allergic/Immunologic: no urticaria, no angioedema. PAST MEDICAL HISTORY:peripheral vascular disease, hypertension PAST SURGICAL HISTORY: And station of the first and second toe on the left foot FAMILY HISTORY: Hypertension SOCIAL HISTORY: Smoke half pack a day, no tobacco or drugs Medications and Allergies Allergies Allergy/AdvReac Type Severity Reaction Status Date / Time No Known Allergies Allergy Verified 10/31/15 12:07 Home Medications Medication Instructions Recorded Confirmed Last Taken Type amLODIPine [Norvasc] 10 mg PO QDAY #30 tablet 03/27/17 05/28/17 05/26/17 Rx oxyCODONE /ACETAMINOPHEN [Percocet 2 tab PO Q6H PRN #14 tablet 03/27/17 Unknown Rx 5/325 mg] Ibuprofen [Motrin] 800 mg PO Q4-6H PRN 05/28/17 05/28/17 05/28/17 History Ranitidine HCl [Heartburn Relief] 75 mg PO QDAY PRN 05/28/17 05/28/17 Unknown History Exam - Physical Exam Narrative exam: Gen. appearance: Patient lying in bed, no apparent distress HEENT: Normocephalic, atraumatic, pupils equally round and reactive to light, extraocular movement intact, and no sclericterus,. No JVD or thyromegaly or nodule,neck supple, no carotid bruit ,mucous membranes moist, no exudate or erythema Heart: S1, S2, regular rate and rhythm Lungs: Clear to auscultation bilaterally, breathing comfortable Abdomen: Positive bowel sounds, nontender, nondistended, no organomegaly Extremity: Wound on the left foot healing without erythema, no purulent discharge, No edema, cyanosis, clubbing Skin: No rash, nodules, warm, dry Neuro: Oriented 3, cranial nerves II-12 intact, speech is fluent, motor and sensory intact - Constitutional Vitals: Temp Pulse Resp BP Pulse Ox 99.6 F 77 18 167/86 99 05/28/17 23:57 05/28/17 23:57 05/28/17 23:57 05/28/17 23:57 05/28/17 23:57 Results - Labs CBC & Chem 7: 05/31/17 05:32 05/31/17 05:32 Assessment and Plan Ultrasound of lower extremity reviewed Assessment Occlusion of right B[place], DPA Lactic acidosis Hypertension Plan Admit to medicine, consult vascular Continue appropriate outpatient medication, start DVT prophylaxis R
[2017-05-29] MEDS: PERCOCET 5/325 PO PRN ×3 (10:01→23:28)
--- NOTE | 2017-05-29 10:58 | Progress Note ---
<BRIANNA MICHELEINDIGO - Last Filed: 05/29/17 14:09> Assessment and Plan Assessment and plan: ASSESSMENT/PLAN Occlusion of right BRAXTON, DPA The patient has history of PVD and decrease pulses in the Right BRAXTON and DPA VL arterial duplex lower extremity ordered Vascular Consulted Lactic acidosis Resolved Hypertension We will resume home antihypertensive medication Hydralazine IV when necessary for SBP >160 Closely monitor blood pressure Right foot ulcer Wound care consulted Ongoing Tobacco Use Smoking sensation counseling done patient strongly advised to quit. DVT prophylaxis Lovenox History Interval history: Patient has uneventful overnight. Hospitalist Physical - Constitutional Vitals: Temp Pulse Resp BP Pulse Ox 98 F 73 20 160/98 97 05/29/17 08:00 05/29/17 08:00 05/29/17 08:00 05/29/17 08:00 05/29/17 08:00 General appearance: Present: no acute distress - EENT Eyes: Present: PERRL ENT: hearing intact - Neck Neck: Present: supple - Respiratory Respiratory effort: normal Respiratory: bilateral: CTA - Cardiovascular Rhythm: regular Heart Sounds: Present: S1 & S2 - Extremities Extremities: abnormal (RT BRAXTON and DPA occlusion) Peripheral Pulses: within normal limits - Abdominal General gastrointestinal: soft, non-tender - Integumentary Integumentary: Present: clear, warm, dry - Psychiatric Psychiatric: appropriate mood/affect - Neurologic Neurologic: CNII-XII intact - Allied Health Allied health notes reviewed: nursing Results - Labs CBC & Chem 7: 05/28/17 13:40 05/28/17 13:40 Labs: Laboratory Last Values WBC 9.7 K/mm3 (4.5-11.0) 05/28/17 13:40 RBC 5.20 M/mm3 (3.65-5.03) H 05/28/17 13:40 Hgb 14.1 gm/dl (11.8-15.2) 05/28/17 13:40 Hct 43.0 % (35.5-45.6) 05/28/17 13:40 MCV 83 fl (84-94) L 05/28/17 13:40 MCH 27 pg (28-32) L 05/28/17 13:40 MCHC 33 % (32-34) 05/28/17 13:40 RDW 14.9 % (13.2-15.2) 05/28/17 13:40 Plt Count 251 K/mm3 (140-440) 05/28/17 13:40 Lymph % (Auto) 18.9 % (13.4-35.0) 05/28/17 13:40 Will % (Auto) 3.1 % (0.0-7.3) 05/28/17 13:40 Eos % (Auto) 0.5 % (0.0-4.3) 05/28/17 13:40 Baso % (Auto) 0.5 % (0.0-1.8) 05/28/17 13:40 Lymph # 1.8 K/mm3 (1.2-5.4) 05/28/17 13:40 Will # 0.3 K/mm3 (0.0-0.8) 05/28/17 13:40 Eos # 0.0 K/mm3 (0.0-0.4) 05/28/17 13:40 Baso # 0.0 K/mm3 (0.0-0.1) 05/28/17 13:40 Seg Neutrophils % 77.0 % (40.0-70.0) H 05/28/17 13:40 Seg Neutrophils # 7.5 K/mm3 (1.8-7.7) 05/28/17 13:40 PT 13.6 Sec. (12.2-14.9) 05/28/17 13:40 INR 1.05 (0.87-1.13) 05/28/17 13:40 APTT 26.7 Sec. (24.2-36.6) 05/28/17 16:30 VBG pH 7.341 (7.320-7.420) 05/28/17 13:40 Sodium 139 mmol/L (137-145) 05/28/17 13:40 Potassium 3.7 mmol/L (3.6-5.0) 05/28/17 13:40 Chloride 98.4 mmol/L (98-107) 05/28/17 13:40 Carbon Dioxide 25 mmol/L (22-30) 05/28/17 13:40 Anion Gap 19 mmol/L 05/28/17 13:40 BUN 13 mg/dL (9-20) 05/28/17 13:40 Creatinine 1.1 mg/dL (0.8-1.5) 05/28/17 13:40 Estimated GFR > 60 ml/min 05/28/17 13:40 BUN/Creatinine Ratio 11.81 % 05/28/17 13:40 Glucose 150 mg/dL (75-100) H 05/28/17 13:40 Lactic Acid 1.30 mmol/L (0.7-2.0) 05/28/17 18:27 Calcium 9.1 mg/dL (8.4-10.2) 05/28/17 13:40 Total Bilirubin 0.30 mg/dL (0.1-1.2) 05/28/17 13:40 AST 16 units/L (5-40) 05/28/17 13:40 ALT 16 units/L (7-56) 05/28/17 13:40 Alkaline Phosphatase 93 units/L (35-129) 05/28/17 13:40 Total Protein 7.8 g/dL (6.3-8.2) 05/28/17 13:40 Albumin 4.3 g/dL (3.9-5) 05/28/17 13:40 Albumin/Globulin Ratio 1.2 % 05/28/17 13:40 Urine Color Straw (Yellow) 05/28/17 18:19 Urine Turbidity Clear (Clear) 05/28/17 18:19 Urine pH 7.0 (5.0-7.0) 05/28/17 18:19 Ur Specific [place] 1.005 (1.003-1.030) 05/28/17 18:19 Urine Protein <15 mg/dl mg/dL (Negative) 05/28/17 18:19 Urine Glucose (UA) Neg mg/dL (Negative) 05/28/17 18:19 Urine Ketones Neg mg/dL (Negative) 05/28/17 18:19 Urine Blood Neg (Negative) 05/28/17 18:19 Urine Nitrite Pos (Negative) 05/28/17 18:19 Urine Bilirubin Neg (Negative) 05/28/17 18:19 Urine Urobilinogen < 2.0 mg/dL (<2.0) 05/28/17 18:19 Ur Leukocyte Esterase Mod (Negative) 05/28/17 18:19 Urine WBC (Auto) 1.0 /HPF (0.0-6.0) 05/28/17 18:19 Urine RBC (Auto) 1.0 /HPF (0.0-6.0) 05/28/17 18:19 U Epithel Cells (Auto) 1.0 /HPF (0-13.0) 05/28/17 18:19 Urine Bacteria (Auto) 3+ /HPF (Negative) 05/28/17 18:19 Urine Mucus Few /HPF 05/28/17 18:19 <ROGELIO COOLEY - Last Filed: 05/29/17 17:27> Assessment and Plan Assessment and plan: I saw and evaluated the patient. I agree with the findings and the plan of care as documented in the Nurse Practitioner's~note, with the following corrections and additions. 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, vascular consulted for further evaluation and management Lactic acidosis; resolved Nonhealing right foot ulcer; wound care antibiotics, consult podiatry Tobacco use; smoking cessation counseling done Elevate the limb Agree with above documentation and plan of care Hospitalist Physical - Constitutional Vitals: Temp Pulse Resp BP Pulse Ox 98 F 70 20 158/91 97 05/29/17 08:00 05/29/17 14:54 05/29/17 08:00 05/29/17 14:54 05/29/17 08:00 Results - Labs CBC & Chem 7: 05/28/17 13:40 05/28/17 13:40 Labs: Laboratory Last Values WBC 9.7 K/mm3 (4.5-11.0) 05/28/17 13:40 RBC 5.20 M/mm3 (3.65-5.03) H 05/28/17 13:40 Hgb 14.1 gm/dl (11.8-15.2) 05/28/17 13:40 Hct 43.0 % (35.5-45.6) 05/28/17 13:40 MCV 83 fl (84-94) L 05/28/17 13:40 MCH 27 pg (28-32) L 05/28/17 13:40 MCHC 33 % (32-34) 05/28/17 13:40 RDW 14.9 % (13.2-15.2) 05/28/17 13:40 Plt Count 251 K/mm3 (140-440) 05/28/17 13:40 Lymph % (Auto) 18.9 % (13.4-35.0) 05/28/17 13:40 Will % (Auto) 3.1 % (0.0-7.3) 05/28/17 13:40 Eos % (Auto) 0.5 % (0.0-4.3) 05/28/17 13:40 Baso % (Auto) 0.5 % (0.0-1.8) 05/28/17 13:40 Lymph # 1.8 K/mm3 (1.2-5.4) 05/28/17 13:40 Will # 0.3 K/mm3 (0.0-0.8) 05/28/17 13:40 Eos # 0.0 K/mm3 (0.0-0.4) 05/28/17 13:40 Baso # 0.0 K/mm3 (0.0-0.1) 05/28/17 13:40 Seg Neutrophils % 77.0 % (40.0-70.0) H 05/28/17 13:40 Seg Neutrophils # 7.5 K/mm3 (1.8-7.7) 05/28/17 13:40 PT 13.6 Sec. (12.2-14.9) 05/28/17 13:40 INR 1.05 (0.87-1.13) 05/28/17 13:40 APTT 26.7 Sec. (24.2-36.6) 05/28/17 16:30 VBG pH 7.341 (7.320-7.420) 05/28/17 13:40 Sodium 139 mmol/L (137-145) 05/28/17 13:40 Potassium 3.7 mmol/L (3.6-5.0) 05/28/17 13:40 Chloride 98.4 mmol/L (98-107) 05/28/17 13:40 Carbon Dioxide 25 mmol/L (22-30) 05/28/17 13:40 Anion Gap 19 mmol/L 05/28/17 13:40 BUN 13 mg/dL (9-20) 05/28/17 13:40 Creatinine 1.1 mg/dL (0.8-1.5) 05/28/17 13:40 Estimated GFR > 60 ml/min 05/28/17 13:40 BUN/Creatinine Ratio 11.81 % 05/28/17 13:40 Glucose 150 mg/dL (75-100) H 05/28/17 13:40 Lactic Acid 1.30 mmol/L (0.7-2.0) 05/28/17 18:27 Calcium 9.1 mg/dL (8.4-10.2) 05/28/17 13:40 Total Bilirubin 0.30 mg/dL (0.1-1.2) 05/28/17 13:40 AST 16 units/L (5-40) 05/28/17 13:40 ALT 16 units/L (7-56) 05/28/17 13:40 Alkaline Phosphatase 93 units/L (35-129) 05/28/17 13:40 Total Protein 7.8 g/dL (6.3-8.2) 05/28/17 13:40 Albumin 4.3 g/dL (3.9-5) 05/28/17 13:40 Albumin/Globulin Ratio 1.2 % 05/28/17 13:40 Urine Color Straw (Yellow) 05/28/17 18:19 Urine Turbidity Clear (Clear) 05/28/17 18:19 Urine pH 7.0 (5.0-7.0) 05/28/17 18:19 Ur Specific [place] 1.005 (1.003-1.030) 05/28/17 18:19 Urine Protein <15 mg/dl mg/dL (Negative) 05/28/17 18:19 Urine Glucose (UA) Neg mg/dL (Negative) 05/28/17 18:19 Urine Ketones Neg mg/dL (Negative) 05/28/17 18:19 Urine Blood Neg (Negative) 05/28/17 18:19 Urine Nitrite Pos (Negative) 05/28/17 18:19 Urine Bilirubin Neg (Negative) 05/28/17 18:19 Urine Urobilinogen < 2.0 mg/dL (<2.0) 05/28/17 18:19 Ur Leukocyte Esterase Mod (Negative) 05/28/17 18:19 Urine WBC (Auto) 1.0 /HPF (0.0-6.0) 05/28/17 18:19 Urine RBC (Auto) 1.0 /HPF (0.0-6.0) 05/28/17 18:19 U Epithel Cells (Auto) 1.0 /HPF (0-13.0) 05/28/17 18:19 Urine Bacteria (Auto) 3+ /HPF (Negative) 05/28/17 18:19 Urine Mucus Few /HPF 05/28/17 18:19
[2017-05-29] MEDS ORDERED: RANITIDINE HCL 75 MG PO PRN (13:57)
[2017-05-29] MEDS ORDERED: APRESOLINE IV ONE (13:58)
[2017-05-29] MEDS ORDERED: PEPCID PO PRN (14:04)
[2017-05-29] MEDS: NORVASC PO SCH (14:53)
[2017-05-29] MEDS ORDERED: NACL ONE (16:47)
--- NOTE | 2017-05-29 16:52 | Consultation ---
History of Present Illness - Reason for Consult Consult date: 05/29/17 Nonhealing Right Lower Extremity Wound - History of Present Illness This patient is a 47-year-old male that was admitted on 2016 due to peripheral arterial disease with a nonhealing wound to his right lower extremity, lactic acidosis, and hypertension. The patient was previously admitted in March 2017. During that hospitalization, his right first and second toes were amputated by orthopedic surgery, Dr. Garcia. Following discharge he was sent to the outpatient wound care clinic. Upon further evaluation, he was noted to have nonpalpable pedal pulses, with a nonhealing wound. He was therefore sent to the emergency room for further evaluation. Following admission, a preliminary arterial duplex showed monophasic flow to both lower extremities (from the iliacs distal). As well as an occlusion of the right deep profunda and anterior tibial arteries. A vascular surgery consultation has been requested to further evaluate. Past History Past Medical History: hypertension Past Surgical History: Other (right first and second toe amputation March 2017) Social history: smoking, other (Lives with girlfriend) Family history: hypertension Medications and Allergies Allergies Allergy/AdvReac Type Severity Reaction Status Date / Time No Known Allergies Allergy Verified 10/31/15 12:07 Home Medications Medication Instructions Recorded Confirmed Last Taken Type amLODIPine [Norvasc] 10 mg PO QDAY #30 tablet 03/27/17 05/28/17 05/26/17 Rx oxyCODONE /ACETAMINOPHEN [Percocet 2 tab PO Q6H PRN #14 tablet 03/27/17 Unknown Rx 5/325 mg] Ibuprofen [Motrin] 800 mg PO Q4-6H PRN 05/28/17 05/28/17 05/28/17 History Ranitidine HCl [Heartburn Relief] 75 mg PO QDAY PRN 05/28/17 05/28/17 Unknown History Active Meds: Active Medications Amlodipine Besylate (Norvasc) 10 mg PO QDAY CHANDA Last Admin: 05/29/17 14:53 Dose: 10 mg Famotidine (Pepcid) 10 mg PO DAILY PRN PRN Reason: Indigestion Oxycodone/Acetaminophen (Percocet 5/325) 1 tab PO Q6H PRN PRN Reason: Pain, Moderate (4-6) Last Admin: 05/29/17 10:01 Dose: 1 tab Review of Systems All systems: negative Exam - Constitutional Vitals: Temp Pulse Resp BP Pulse Ox 98 F 70 20 158/91 97 05/29/17 08:00 05/29/17 14:54 05/29/17 08:00 05/29/17 14:54 05/29/17 08:00 General appearance: Present: no acute distress - EENT Eyes: Present: EOM intact ENT: hearing intact - Neck Neck: Present: supple - Respiratory Respiratory effort: normal - Extremities Extremities: normal temperature Extremity abnormal: pulses diminished (Non-palp pulses from bilat femoral arteries distally), other (Right 1st and 2nd toe amp site, with necrotic skin slough, ulcerated base, no erythema or active drainage.) - Psychiatric Psychiatric: appropriate mood/affect, intact judgment & insight, cooperative - Neurologic Neurologic: no focal deficits Results - Labs CBC & Chem 7: 05/28/17 13:40 05/28/17 13:40 Assessment and Plan Pt is s/p an amputation to his right 1st and 2nd toes ~2.5 months ago with failure to heal the wounds. He does not have palpable pulses from his hips down. Suspect he has significant aortic or bilateral iliac disease limiting his arterial inflow. This likely limits his ability to heal distal wounds. Recommend CTA of the aorta with bilateral lower ext runoff. Further recommendations based upon these findings. The pt was initially hesitant for any additional procedures, but has agreed to CTA. - Patient Problems (1) Atherosclerosis of [place] arteries of the extremities with ulceration Current Visit: Yes Status: Acute (2) Hypertension Current Visit: Yes Status: Acute Qualifiers: Hypertension type: H
[2017-05-29] MEDS ORDERED: VANCOMYCIN/NS 1 GM/250 ML 1 GM/250 ML BAG IV SCH (18:00)
--- NOTE | 2017-05-29 18:43 | Cat Scan Report ---
FINAL REPORT EXAM: CT ANGIO ABD/FEMORAL ABD AORTA HISTORY: non-healing right 1st toe amp site TECHNIQUE: CT angiogram abdominal aorta and lower extremities with multiplanar reconstruction. Study performed with intravenous contrast PRIORS: None. FINDINGS: The upper abdominal aorta is normal in caliber. There is normal flow without evidence of stenosis or occlusion to the celiac axis and superior mesenteric arteries. There is normal flow to renal arteries bilaterally At the proximal aorta beginning originating at the level of the origins of the renal arteries there is mural thrombus present. There is marked internal luminal narrowing. At the mid abdominal aorta the aorta measures 1.8 x 1.8 centimeters. The patent internal lumen measures 0.6 x 0.7 centimeters. There is thrombus extending into the origin of the right common iliac artery with severe luminal narrowing. More distally the common iliac is patent with mild thrombus present. The right common iliac is normal in caliber without evidence for stenosis or occlusion. The right deep superficial femoral arteries are unremarkable. There is some mild luminal narrowing with plaque or thrombus present at the right popliteal artery. The calf veins on the right are patent without evidence of significant stenosis or occlusion. There is a vascular stent within the left common through external iliac arteries. There is complete occlusion from the origin of the left common iliac through the external iliac throughout the stent. There is some reconstitution distally. The left common femoral, superficial and deep femoral arteries are patent. There is marked luminal narrowing of the left popliteal artery and narrowing of the anterior and posterior tibial arteries at the lower pole the trifurcation. There reconstitution seen distally. No acute abnormality identified within abdomen and pelvis. The kidneys enhance normally. IMPRESSION: Marked mural thrombus of the abdominal aorta from the level of the renal arteries through the bifurcation with significant luminal narrowing Left arterial stent from the common iliac through external iliac arteries is completely occluded Marked luminal narrowing the left distal popliteal through the level of the trifurcation. Significant stenosis secondary to thrombus at the origin of the right common iliac
[2017-05-29] MEDS ORDERED: VANCOMYCIN 1,500 MG in NACL 0.9% 500 ML 500 ML IV ONE (19:00)
[2017-05-29] MEDS: ZOSYN/NS 4.5GM/100ML 4.5 GM/100 ML VIAL IV SCH (22:18)
[2017-05-30] MEDS: ZOSYN/NS 4.5GM/100ML 4.5 GM/100 ML VIAL IV SCH ×3 (05:00→20:19)
[2017-05-30] MEDS: VANCOMYCIN 1,250 MG in NACL 0.9% 250ML 250 ML IV SCH ×2 (06:56→18:43)
[2017-05-30] MEDS: NORVASC PO SCH (11:42)
[2017-05-30] MEDS: ASPIRIN PO SCH (11:42)
[2017-05-30] MEDS: PERCOCET 5/325 PO PRN (15:15)
--- NOTE | 2017-05-30 18:10 | Progress Note ---
Assessment and Plan Assessment and Plan Assessment and plan: ASSESSMENT/PLAN Occlusion of right BRAXTON, DPA The patient has history of PVD and decrease pulses in the Right BRAXTON and DPA VL arterial duplex lower extremity ordered Vascular Consulted Lactic acidosis Resolved Hypertension We will resume home antihypertensive medication Hydralazine IV when necessary for SBP >160 Closely monitor blood pressure Right foot ulcer Wound care consulted Ongoing Tobacco Use Smoking sensation counseling done patient strongly advised to quit. DVT prophylaxis Lovenox Subjective Date of service: 05/30/17 Objective - Constitutional Vitals: Vital Signs - 12hr 05/30/17 05/30/17 07:00 11:42 Temperature 98.2 F Pulse Rate 71 92 H Respiratory 18 Rate Blood Pressure 131/89 157/75 O2 Sat by Pulse 98 Oximetry General appearance: Present: no acute distress, well-nourished - EENT Eyes: PERRL, EOM intact ENT: hearing intact, clear oral mucosa Ears: bilateral: normal - Neck Neck: supple, normal ROM - Respiratory Respiratory effort: normal Respiratory: bilateral: CTA - Breasts Breasts: normal - Cardiovascular Rhythm: regular Heart Sounds: Present: S1 & S2. Absent: gallop, rub Extremities: pulses intact, No edema, normal color, Full ROM - Gastrointestinal General gastrointestinal: Present: soft, non-tender, non-distended, normal bowel sounds - Genitourinary Male genitourinary: normal - Integumentary Integumentary: clear, warm, dry - Musculoskeletal Musculoskeletal: 1, strength equal bilaterally - Neurologic Neurologic: moves all extremities - Psychiatric Psychiatric: memory intact, appropriate mood/affect, intact judgment & insight - Labs CBC & Chem 7: 05/28/17 13:40 05/28/17 13:40 Labs: Abnormal lab results 05/30/17 Range/Units 04:38 Cholesterol 217 H (50-199) mg/dL LDL Cholesterol Direct 158 H (50-130) mg/dL
[2017-05-30] MEDS: ZOFRAN IV PRN (22:57)
[2017-05-31] MEDS: ZOSYN/NS 4.5GM/100ML 4.5 GM/100 ML VIAL IV SCH ×3 (04:55→21:55)
[2017-05-31 07:16] LABS: Basophils % (Auto) 0.4 % (0.0-1.8); Eosinophils % (Auto) 1.6 % (0.0-4.3); Hematocrit 42.1 % (35.5-45.6); Hemoglobin 13.6 gm/dl (11.8-15.2); Mean Corpuscular HGB Conc 32 % (32-34); Mean Corpuscular Hemoglobin 27 pg (28-32); Mean Corpuscular Volume 83 fl (84-94); Platelet Count 229 K/mm3 (140-440); Red Blood Count 5.09 M/mm3 (3.65-5.03); Red Cell Distribution Width 14.7 % (13.2-15.2); White Blood Count 7.5 K/mm3 (4.5-11.0)
[2017-05-31 07:20] LABS: Alanine Aminotransferase 14 units/L (7-56); Albumin 3.8 g/dL (3.9-5); Albumin/Globulin Ratio 1.2 %; Alkaline Phosphatase 79 units/L (35-129); Anion Gap 18 mmol/L; Blood Urea Nitrogen 10 mg/dL (9-20); Calcium 8.9 mg/dL (8.4-10.2); Carbon Dioxide 24 mmol/L (22-30); Glucose 97 mg/dL (75-100); Potassium 3.7 mmol/L (3.6-5.0); Sodium 141 mmol/L (137-145); Total Protein 7.1 g/dL (6.3-8.2)
--- NOTE | 2017-05-31 09:16 | Progress Note ---
Assessment and Plan - Patient Problems (1) Hypertensive urgency Current Visit: No Status: Acute Plan to address problem: medical management (2) Atherosclerosis of [place] arteries of the extremities with ulceration Current Visit: Yes Status: Acute Plan to address problem: planning aorto-bifemoral bypass this week. Patient agrees to procedure. Subjective Date of service: 05/30/17 Interval history: Ready for procedure. Right foot ulceration, non-healing wounds Objective - Constitutional Vitals: Vital Signs - 12hr 05/30/17 05/31/17 21:12 00:00 Temperature 98.8 F Pulse Rate 68 Pulse Rate [ 92 H Left] Respiratory 18 20 Rate Blood Pressure 139/63 O2 Sat by Pulse 98 97 Oximetry General appearance: Present: no acute distress - EENT Eyes: PERRL ENT: hearing intact, clear oral mucosa - Neck Neck: supple, normal ROM - Respiratory Respiratory effort: normal Respiratory: bilateral: CTA - Breasts Breasts: deferred - Cardiovascular Rhythm: regular Heart Sounds: Present: S1 & S2 Extremity abnormal: ulceration, pulses diminished - Gastrointestinal General gastrointestinal: Present: soft, non-tender Rectal Exam: deferred - Genitourinary Male genitourinary: deferred - Musculoskeletal Musculoskeletal: strength equal bilaterally - Psychiatric Psychiatric: appropriate mood/affect, intact judgment & insight - Labs CBC & Chem 7: 05/31/17 05:32 05/31/17 05:32 Labs: Abnormal lab results 05/31/17 05/31/17 Range/Units 05:32 05:32 RBC 5.09 H (3.65-5.03) M/mm3 MCV 83 L (84-94) fl MCH 27 L (28-32) pg Lymph % (Auto) 38.7 H (13.4-35.0) % Albumin 3.8 L (3.9-5) g/dL - Imaging and cardiology CT scan - abdomen: report reviewed (aorto-iliac occlusive disease, reconsituted femoral vessels), image reviewed
[2017-05-31] MEDS: ASPIRIN PO SCH (10:51)
[2017-05-31] MEDS: NORVASC PO SCH (10:51)
[2017-05-31] MEDS: VANCOMYCIN 1,250 MG in NACL 0.9% 250ML 250 ML IV SCH ×2 (10:55→20:08)
--- NOTE | 2017-05-31 18:37 | Progress Note ---
Assessment and Plan Assessment and Plan Assessment and plan: ASSESSMENT/PLAN Occlusion of right BRAXTON, DPA The patient has history of PVD and decrease pulses in the Right BRAXTON and DPA VL arterial duplex lower extremity ordered Vascular Consulted Lactic acidosis Resolved Hypertension We will resume home antihypertensive medication Hydralazine IV when necessary for SBP >160 Closely monitor blood pressure Right foot ulcer Wound care consulted Ongoing Tobacco Use Smoking sensation counseling done patient strongly advised to quit. DVT prophylaxis Lovenox Subjective Date of service: 05/31/17 Objective - Constitutional Vitals: Vital Signs - 12hr 05/31/17 05/31/17 10:51 15:00 Temperature 97.5 F L Pulse Rate 80 74 Respiratory 20 Rate Blood Pressure 139/75 O2 Sat by Pulse 99 Oximetry General appearance: Present: no acute distress, well-nourished - EENT Eyes: PERRL, EOM intact ENT: hearing intact, clear oral mucosa Ears: bilateral: normal - Neck Neck: supple, normal ROM - Respiratory Respiratory effort: normal Respiratory: bilateral: CTA - Breasts Breasts: normal - Cardiovascular Rhythm: regular Heart Sounds: Present: S1 & S2. Absent: gallop, rub Extremities: pulses intact, No edema, normal color, Full ROM - Gastrointestinal General gastrointestinal: Present: soft, non-tender, non-distended, normal bowel sounds - Genitourinary Male genitourinary: normal - Integumentary Integumentary: clear, warm, dry - Musculoskeletal Musculoskeletal: 1, strength equal bilaterally - Neurologic Neurologic: moves all extremities - Psychiatric Psychiatric: memory intact, appropriate mood/affect, intact judgment & insight - Labs CBC & Chem 7: 05/31/17 05:32 05/31/17 05:32 Labs: Abnormal lab results 05/31/17 05/31/17 Range/Units 05:32 05:32 RBC 5.09 H (3.65-5.03) M/mm3 MCV 83 L (84-94) fl MCH 27 L (28-32) pg Lymph % (Auto) 38.7 H (13.4-35.0) % Albumin 3.8 L (3.9-5) g/dL
[2017-06-01] MEDS: ZOSYN/NS 4.5GM/100ML 4.5 GM/100 ML VIAL IV SCH ×3 (06:01→22:40)
[2017-06-01] MEDS: VANCOMYCIN 1,250 MG in NACL 0.9% 250ML 250 ML IV SCH ×2 (06:50→20:44)
[2017-06-01] MEDS: ASPIRIN PO SCH (09:21)
[2017-06-01] MEDS: NORVASC PO SCH (09:21)
--- NOTE | 2017-06-01 10:42 | Consultation ---
History of Present Illness Consult date: 06/01/17 Requesting physician: BRIDGETT RUBIO Consult reason: pre op evaluation History of present illness: This patient is a 47-year-old male with a past medical history significant for HTN, HLP, PAD and tobacco use. He is previously unknown to our practice. He was admitted on 05/28/2017 due to peripheral arterial disease with a nonhealing wound to his right lower extremity, lactic acidosis, and hypertension. The patient was previously admitted in March 2017. During that hospitalization, his right first and second toes were amputated by orthopedic surgery, Dr. Garcia. Following discharge he was sent to the outpatient wound care clinic. Upon further evaluation, he was noted to have nonpalpable pedal pulses, with a nonhealing wound in the RLE. He was therefore sent to the emergency room for further evaluation. He has been scheduled for aorto- bifemoral bypass this week and cardiology has been consulted for pre-operative cardiac clearance. On evaluation, pt denies any complaints. Past History Past Medical History: hypertension, hyperlipidemia, PVD Past Surgical History: Other (right first and second toe amputation March 2017) Social history: smoking, other (Lives with girlfriend). denies: alcohol abuse, prescription drug abuse Family history: hypertension Medications and Allergies Allergies Allergy/AdvReac Type Severity Reaction Status Date / Time No Known Allergies Allergy Verified 10/31/15 12:07 Home Medications Medication Instructions Recorded Confirmed Last Taken Type amLODIPine [Norvasc] 10 mg PO QDAY #30 tablet 03/27/17 05/28/17 05/26/17 Rx oxyCODONE /ACETAMINOPHEN [Percocet 2 tab PO Q6H PRN #14 tablet 03/27/17 Unknown Rx 5/325 mg] Ibuprofen [Motrin] 800 mg PO Q4-6H PRN 05/28/17 05/28/17 05/28/17 History Ranitidine HCl [Heartburn Relief] 75 mg PO QDAY PRN 05/28/17 05/28/17 Unknown History Active Meds: Active Medications Amlodipine Besylate (Norvasc) 10 mg PO QDAY [facility] Last Admin: 06/01/17 09:21 Dose: 10 mg Aspirin (Aspirin) 325 mg PO QDAY [facility] Last Admin: 06/01/17 09:21 Dose: 325 mg Atorvastatin Calcium (Lipitor) 40 mg PO QHS [facility] Last Admin: 05/31/17 21:56 Dose: 40 mg Famotidine (Pepcid) 10 mg PO DAILY PRN PRN Reason: Indigestion Piperacillin Sod/Tazobactam Sod (Zosyn/Ns 4.5gm/100ml) 4.5 gm in 100 mls @ 200 mls/hr IV Q8H CAHNDA PRN Reason: Protocol Last Admin: 06/01/17 06:01 Dose: 200 mls/hr Vancomycin HCl 1,250 mg/ (Sodium Chloride) 275 mls @ 166.667 mls/hr IV Q12H [facility] Last Admin: 06/01/17 06:50 Dose: 166.667 mls/hr Ondansetron HCl (Zofran) 4 mg IV Q4H PRN PRN Reason: Nausea And Vomiting Last Admin: 05/30/17 22:57 Dose: 4 mg Oxycodone/Acetaminophen (Percocet 5/325) 1 tab PO Q6H PRN PRN Reason: Pain, Moderate (4-6) Last Admin: 05/30/17 15:15 Dose: 1 tab Review of Systems All systems: negative Constitutional: no fever, no chills, no sweats Cardiovascular: high blood pressure, no chest pain, no orthopnea, no palpitations, no rapid/irregular heart beat, no edema, no syncope, no lightheadedness, no shortness of breath, no dyspnea on exertion, no paroxysmal nocturnal dyspnea, no leg edema, no decreased exercise tolerance Respiratory: no cough, no shortness of breath, no dyspnea on exertion, no congestion, no wheezing, no pain on inspiration Gastrointestinal: no abdominal pain, no nausea, no vomiting, no diarrhea, no constipation, no change in bowel habits Genitourinary Male: no dysuria, no hematuria, no flank pain, no discharge, no urinary frequency, no urinary hesitancy Musculoskeletal: other (right first and second toe amputation March 2017), no neck stiffness, no neck pain, no shooting arm pain, no arm numbness/tingling, no low back pain, no shooting leg pain, no leg numbness/tingling, no redness of joints Integumentary: other (right foot wrapped in bandage; c/d/i) Neurological: no head injury, no paralysis, no weakness, no parathesias, no numbness, no tingling, no seizures Psychiatric: no anxiety Endocrine: no cold intolerance, no heat intolerance Allergic/Immunologic: no urticaria, no wheezing Physical Examination Last Vital Signs Temp 98.3 F 06/01/17 07:00 Pulse 71 06/01/17 07:00 Resp 19 06/01/17 07:00 BP 169/94 06/01/17 07:00 Pulse Ox 100 06/01/17 07:00 General appearance: no acute distress HEENT: Positive: PERRL, Normocephaly, Mucus Membranes Moist Neck: Positive: neck supple, trachea midline Cardiac: Positive: Reg Rate and Rhythm, S1/S2 Lungs: Positive: clear to auscultation Neuro: Positive: Grossly Intact, Cranial Nerve 2-12 Intact Abdomen: Positive: Unremarkable, Soft, Active Bowel Sounds. Negative: Tender Skin: Positive: Clear, Other (right foot in bandage ). Negative: Rash Musculoskeletal: No Fluid Collection Extremities: Present: Other (No palpable pulses from hips down). Absent: edema Results 05/31/17 05:32 05/31/17 05:32 - Imaging and Cardiology Echo: pending EKG: report reviewed, image reviewed EKG interpretations - Telemetry EKG Rhythm: Sinus Rhythm - EKG Sinus rhythms and dysrhythmias: sinus rhythm Myocardial infarction: inferior NV (old age inde Assessment and Plan Assessment: PVD - pending aorto-bifemoral bypass tomorrow per pt report; s/p first and second right toe amputations in March 2017 with nonhealing wounds Lactic acidosis - improved; wound cultures positive for E. Coli. UTI HTN HLP Tobacco use - cessation encouraged. Plan: Obtain echo today. IV abx per primary. Optimize anti-hypertensive regimen - initiate HCTZ 12.5mg PO daily. Assessment and plan reviewed with pt at bedside. The patient has been seen in conjunction with Dr. Hess who agrees with the assessment and plan of care.
[2017-06-01] MEDS: HCTZ PO SCH (12:05)
--- NOTE | 2017-06-01 13:38 | Vascular Lab Report ---
LOWER EXTREMITY ARTERIAL DUPLEX: REASON FOR EXAM: Peripheral arterial disease. COMMENTS ON THE RIGHT: Monophasic waveforms are seen proximally. Monophasic waveforms are seen distally. No flow noted in the anterior tibial and dorsalis pedis arteries.. Diffuse nonocclusive plaque is noted throughout the vessels. Findings are consistent with abnormal perfusion. Findings are not consistent with the ability to heal distal wounds. COMMENTS ON THE LEFT: Monophasic waveforms are seen proximally. Monophasic waveforms are seen distally. Very low flow velocities noted throughout the vessel.. Diffuse nonocclusive plaque is noted without identifiable stenosis. Findings are consistent with abnormal perfusion. Findings are not consistent with the ability to heal distal wounds. IMPRESSION: The waveform are suggestive of aortoiliac inflow disease bilaterally RIGHT: Occluded anterior tibial and dorsalis pedis artery. LEFT:No identifiable stenosis noted in the left leg.
--- NOTE | 2017-06-01 14:01 | Event Note ---
Date: 06/01/17 Pt with non-healing foot wound. CTA shows aorta/iliac occlusion. Pt is scheduled for Aorta-bifem bypass tomorrow. Cardiac eval in progress. Surgery tomorrow if cleared.
--- NOTE | 2017-06-01 15:51 | Anesthesia Consultation ---
Anesthesia Consult and Med Hx Date of service: 06/01/17 - Airway Anesthetic Teeth Evaluation: Good ROM Head & Neck: Adequate Mental/Hyoid Distance: Adequate Mallampati Class: Class II Intubation Access Assessment: Probably Good - Pre-Operative Health Status ASA Pre-Surgery Classification: ASA3 Proposed Anesthetic Plan: General - Pulmonary Hx Smoking: Yes (current, has not smoked in 1 week) Hx Asthma: No COPD: No Hx Pneumonia: No - Cardiovascular System Hx Hypertension: Yes Hx Coronary Artery Disease: No (high cholesterol) Hx Peripheral Vascular Disease: Yes (left leg stent, s/p right toe amputation, nonhealing ulcers right foot. ) - Central Nervous System Hx Seizures: No Hx Back Pain: No - Gastrointestinal Hx Gastroesophageal Reflux Disease: Yes - Endocrine Hx End Stage Renal Disease: No Hx Hyperthyroidism: No - Hematic Hx Anemia: No - Other Systems Hx Obesity: No
--- NOTE | 2017-06-01 16:54 | Event Note ---
Date: 06/01/17 Echo reviewed with NAF. Pt is currently at moderate cardiovascular risk for vascular surgery. There are no immediate cardiac contraindications to proceeding with intervention at this time. Asa MADISON NP / DR. BROTHERS
[2017-06-02] MEDS: ZOSYN/NS 4.5GM/100ML 4.5 GM/100 ML VIAL IV SCH ×2 (04:40→12:27)
[2017-06-02] MEDS: VANCOMYCIN 1,250 MG in NACL 0.9% 250ML 250 ML IV SCH (06:28)
[2017-06-02] MEDS: NACL 0.9% 1000 ML 1,000 ML IV SCH ×3 (06:32→21:12)
[2017-06-02] MEDS ORDERED: PEPCID IV NR (07:00)
--- NOTE | 2017-06-02 09:09 | Progress Note ---
Assessment and Plan Assessment: PVD - pending aorto-bifemoral bypass tomorrow per pt report; s/p first and second right toe amputations in March 2017 with nonhealing wounds Lactic acidosis - improved; wound cultures positive for E. Coli. UTI HTN HLP Tobacco use - cessation encouraged. Plan: Echo reviewed with NAF. Pt is currently at moderate cardiovascular risk for vascular surgery. There are no immediate cardiac contraindications to proceeding with intervention at this time. Cont present anti-hypertensive regimen. Will f/u following vascular surgery. Assessment and plan reviewed with pt at bedside. The patient has been seen in conjunction with Dr. Hess who agrees with the assessment and plan of care. Subjective Date of service: 06/02/17 Principal diagnosis: PVD Interval history: Pt resting comfortably in bed, denies any complaints. For vascular surgery today. Has been NPO since MN. BPs improved. Objective Last Vital Signs Temp 97.8 F 06/02/17 07:00 Pulse 67 06/02/17 07:00 Resp 19 06/02/17 07:00 BP 135/82 06/02/17 07:00 Pulse Ox 97 06/01/17 23:00 - Physical Examination General: Appears Well HEENT: Positive: PERRL, Normocephaly, Mucus Membranes Moist Neck: Positive: neck supple, trachea midline Cardiac: Positive: Reg Rate and Rhythm, S1/S2 Lungs: Positive: clear to auscultation Neuro: Positive: Grossly Intact, Cranial Nerve 2-12 Intact Abdomen: Positive: Unremarkable, Soft, Active Bowel Sounds. Negative: Tender Skin: Positive: Clear, Other (right foot in bandage ). Negative: Rash Musculoskeletal: No Fluid Collection Extremities: Present: Other (No palpable pulses from hips down). Absent: edema - Imaging and Cardiology EKG: report reviewed, image reviewed Echo: report reviewed - Telemetry EKG Rhythm: Sinus Rhythm - EKG Sinus rhythms and dysrhythmias: sinus rhythm Myocardial infarction: inferior NV (old age inde
[2017-06-02] MEDS: HCTZ PO SCH (09:11)
[2017-06-02] MEDS: NORVASC PO SCH (09:11)
[2017-06-02] MEDS: ASPIRIN PO SCH (09:32)
[2017-06-02] MEDS: VERSED IV NR ×2 (10:29→18:48)
[2017-06-02] MEDS ORDERED: SUBLIMAZE ONE ×2 (10:32→11:50)
[2017-06-02] MEDS ORDERED: RIFADIN ONE (10:43)
[2017-06-02] MEDS ORDERED: HEPARIN 10,000 UNITS/10 ML ONE ×2 (10:43→16:09)
[2017-06-02] MEDS ORDERED: ACD-A 500 ML IV ONE (10:44)
[2017-06-02] MEDS ORDERED: MARCAINE-EPI/PF 0.25%-1:200,000 INFILTRATI ONE (10:44)
[2017-06-02] MEDS ORDERED: NACL 0.9% 500 ML 500 ML ONE (10:45)
[2017-06-02] MEDS ORDERED: NACL 0.9% 0 ML ONE (11:49)
[2017-06-02] MEDS ORDERED: AMIDATE IV ONE (11:49)
[2017-06-02] MEDS ORDERED: ZEMURON IV ONE ×2 (11:49→13:13)
[2017-06-02] MEDS ORDERED: XYLOCAINE MPF 2% ONE ×2 (11:49→15:55)
[2017-06-02] MEDS ORDERED: NACL 0.9% 1000 ML 1,000 ML ONE ×5 (11:49→14:40)
[2017-06-02] MEDS ORDERED: NEO SYNEPHRINE ONE (11:49)
[2017-06-02] MEDS ORDERED: DIPRIVAN 10 MG/ML IV ONE ×2 (11:50→18:10)
[2017-06-02] MEDS ORDERED: ePHEDrine SULFATE ONE ×5 (11:50→16:34)
[2017-06-02] MEDS ORDERED: MARCAINE-EPI 0.5%-1:200,000 INFILTRATI ONE ×2 (11:59→12:07)
[2017-06-02] MEDS ORDERED: NACL 0.9% 500 ML IRRIGATION ONE (12:07)
[2017-06-02] MEDS ORDERED: NACL 0.9% 1000 ML IR ONE (12:07)
[2017-06-02] MEDS ORDERED: NACL 0.9% IR ONE ×2 (12:07)
[2017-06-02] MEDS ORDERED: DILAUDID ONE (13:13)
--- NOTE | 2017-06-02 13:16 | XRay Report ---
AP CHEST: HISTORY: Central line placement Right IJ venous catheter terminates in the superior right atrium. No pneumothorax. AP view of the chest demonstrates a normal mediastinal and cardiac contour with clear lungs and normal bony and soft tissue structures. IMPRESSION: Unremarkable AP chest. Adequate right IJ line placement.
[2017-06-02] MEDS ORDERED: ACD-A IV ONE (13:27)
[2017-06-02] MEDS ORDERED: GELFOAM TP ONE ×3 (15:21→15:29)
[2017-06-02] MEDS ORDERED: NACL P/F VIAL (10 ML) 10 ML ONE (15:55)
[2017-06-02] MEDS ORDERED: DECADRON ONE (16:53)
[2017-06-02] MEDS ORDERED: ZOFRAN ONE (16:53)
--- NOTE | 2017-06-02 17:17 | Operative Report ---
Operative Report Operative Report: Date of Procedure: 06/02/2017 Pre-operative Diagnosis: Aortoiliac Occlusive Disease with Nonhealing Right Foot Wound Post-operative Diagnosis: Same Procedure(s): 1. Aortobifemoral Bypass with 18 x 9 mm [place] PTFE Bifurcated Graft Surgeon: Peter Monk M.D. Grinding Machine Operator: Edouard Albert M.D. Second Assistants: Meagan Reyes M.D. & Tino Abad PA-C Anesthesia: Gen. Endotracheal Anesthesia EBL: 1 Liter Fluids: 450 ml Cell Saver, 7 Liters Crystalloid Urine OutPut: 1400 ml Counts: Correct Complications: None Condition: Stable Findings: Successful aortobifemoral bypass with palpable pulse in the SFA and profunda artery at the completion of the case. Specimen: Aortic plaque and thrombus sent to pathology. Indication: The patient is a 47-year-old male who was sent to the Emergency Department secondary to a nonhealing right foot wound after amputation of his first and second toes. He was noted to have absence of distal pulses and was sent for evaluation. He had an ultrasound suggestive of aortic iliac occlusive disease and had confirmation of this on CTA of his abdomen and pelvis with runoff. He was clear for the operation by cardiology is a moderate risk and therefore offered and aortobifemoral bypass. He was given the risk, benefits, and alternative procedures and consented to procedure. Description of Procedure: The patient was brought to the operating room and laid in supine position. After general endotracheal anesthesia was achieved he was prepped and draped in normal sterile fashion. Longitudinal incisions were created and bilateral groins using 10 blades and sharp dissection was used to carry the dissection down to the femoral artery. The common femoral artery as well as the bifurcation were dissected circumferentially control vessels. We then created retroperitoneal tunnels along the iliac vessels ensuring that we tunneled below the ureters. Care was taken to identify the Vein of Sorrow which was ligated and divided. We then performed a midline celiotomy using a 10 blade and cautery. The peritoneum was identified and entered using Metzenbaums. Once this was open care was used to open the remainder of the incision while avoiding the bowel. The falciform ligament was identified and ligated and divided. The liver and colon were free of masses. The gallbladder was free of gallstones. Position of the NG tube was confirmed and the tube was then taped in position. The Bookwalter was then set up and the retroperitoneum was entered by dividing the peritoneum between the duodenum and inferior mesenteric vein. The peritoneum was opened from the left renal vein down to the aortic bifurcation. Then dissected along the aorta below the renals and dissected circumferentially passed a red rubber tube around the aorta. Additionally we dissected the aorta above the renals and then dissected out bilateral renal arteries and controlled vessels. Bilateral retroperitoneal tunnels from the groin were then connected to the abdominal incision and umbilical ties were then pulled through each tunnel to maintain the tunnel. At this point was systemically heparinized the patient with 5000 units heparin IV. After this circulated for 3 minutes bilateral renal artery loops were then placed on tension to occlude flow and a aortic DeBakey clamp was used to clamp the suprarenal aorta. An angled Debakey Clamp was used to clamp the distal aorta. An 11 blade and aortic scissors used to divide the aorta. Upon entering the aorta there was a significant amount of what appeared to be chronic thrombus that was near totally occlusive. This was removed with [place] pickups. a Hematite was then used to remove the remaining amount of plaque, although there was minimal plaque. Once the infrarenal portion of the aorta had been cleared of the thrombus and plaque bilateral renal arteries were backbled and then the clamp was placed below the renal arteries. Suprarenal clamp was then removed restoring flow into the renal arteries. The total suprarenal clamp time was approximately 5 minutes. We then created and an anastomosis between the infrarenal aorta and the 18 x 9 mm Bifurcated PTFE graft using 2 3-0 Prolene in running fashion. The distal graft was then clamped and the aortic clamp was removed allowing flow into the graft. Hemostasis was achieved with a combination of interrupted sutures and "clot. The distal aortic stump was then oversewn using a 2-0 Prolene in running fashion. The DeBakey aortic clamp were then used to passed through the previously created tunnels on each limb of the graft was to their respective tunnel. Each limb was then flushed to remove any debris and ensure that it had not been twisted or kinked. The femoral vessel loops were then placed tension occluding flow and an arteriotomy was created in each femoral artery using an 11 blade and Galloway scissors. We then created end- to-side anastomosis using 5-0 Prolene in running fashion. Prior to completing the anastomosis each vessel was backbled and then reclamped. Both limbs of the graft were then flushed and the arteriotomy as well as with heparinized saline. Both anastomoses were then completed and then each limb was opened sequentially to allow anesthesia to adequately resuscitate the patient and prevent hypotension. Hemostasis within each groin was achieved with Quick Clot. Once hemostasis was achieved each groin was anesthetized with Marcaine and then closed in 3 layers using a 3-0 Vicryl running fashion deep layer, 3-0 Vicryl and running fashion and the deep dermal layer, and a 4 Monocryl in a running fashion subcuticular. Both wounds were then dressed with Dermabond. We then reexplored the abdomen to ensure there was no evidence of bleeding at the suture line. Further hemostasis within the abdomen was achieved with Tisseel. Once hemostasis was achieved the peritoneum was then closed using a 2- 0 chromic in running fashion. The abdomen was then closed using 2 double- stranded #1 PDS, and running fashion in the fascia. The skin was then closed with chuckie. The abdominal wall was then dressed with Telfa, fluffs, ABDs pads , and Medipore. The patient tolerated the procedure well. All sponge, needle, and estimate counts were correct. The patient was taken to the recovery area in stable condition.
[2017-06-02] MEDS ORDERED: MORPHINE IV PRN ×2 (17:22)
--- NOTE | 2017-06-02 18:01 | Progress Note ---
Assessment and Plan Assessment and plan: --Peripheral vascular disease; Schedule for aortofemoral bypass surgery today, vascular following --Nonhealing foot ulcers; IV antibiotics and wound care elevate the limb --Gram-negative positive wound cultures; continue IV antibiotics --Urinary tract infection/Escherichia coli; continue current antibiotics and supportive care --Hypertension; moderate control. Continue current antihypertensives and when necessary medications --Ongoing tobacco use; smoking cessation counseling done patient strongly advised to quit tobacco, his nicotine patch --Dyslipidemia; lipid lowering medications --DVT prophylaxis with Lovenox Plan of care discussed with the patient as well as his nurse History Interval history: Patient seen and evaluated medical records reviewed Schedule for eye to femoral bypass surgery Patient feels better no new complaints, vital signs stable Hospitalist Physical - Constitutional Vitals: Temp Pulse Resp BP Pulse Ox 98.5 F 71 16 122/77 99 06/02/17 11:00 06/02/17 11:17 06/02/17 11:17 06/02/17 11:17 06/02/17 11:17 General appearance: Present: no acute distress, well-nourished - EENT Eyes: Present: PERRL, EOM intact - Neck Neck: Present: supple, normal ROM - Respiratory Respiratory effort: normal Respiratory: negative: rales, rhonchi, wheezing - Cardiovascular Rhythm: regular Heart Sounds: Present: S1 & S2 - Extremities Extremities: no ischemia, No edema - Abdominal General gastrointestinal: soft, non-tender, non-distended, normal bowel sounds - Integumentary Integumentary: Present: clear, warm - Psychiatric Psychiatric: appropriate mood/affect, cooperative - Neurologic Neurologic: CNII-XII intact, moves all extremities Results - Labs CBC & Chem 7: 05/31/17 05:32 05/31/17 05:32 Labs: Laboratory Last Values WBC 7.5 K/mm3 (4.5-11.0) 05/31/17 05:32 RBC 5.09 M/mm3 (3.65-5.03) H 05/31/17 05:32 Hgb 13.6 gm/dl (11.8-15.2) 05/31/17 05:32 Hct 42.1 % (35.5-45.6) 05/31/17 05:32 MCV 83 fl (84-94) L 05/31/17 05:32 MCH 27 pg (28-32) L 05/31/17 05:32 MCHC 32 % (32-34) 05/31/17 05:32 RDW 14.7 % (13.2-15.2) 05/31/17 05:32 Plt Count 229 K/mm3 (140-440) 05/31/17 05:32 Lymph % (Auto) 38.7 % (13.4-35.0) H 05/31/17 05:32 [place] % (Auto) 6.1 % (0.0-7.3) 05/31/17 05:32 Eos % (Auto) 1.6 % (0.0-4.3) 05/31/17 05:32 Baso % (Auto) 0.4 % (0.0-1.8) 05/31/17 05:32 Lymph # 2.9 K/mm3 (1.2-5.4) 05/31/17 05:32 [place] # 0.5 K/mm3 (0.0-0.8) 05/31/17 05:32 Eos # 0.1 K/mm3 (0.0-0.4) 05/31/17 05:32 Baso # 0.0 K/mm3 (0.0-0.1) 05/31/17 05:32 Seg Neutrophils % 53.2 % (40.0-70.0) 05/31/17 05:32 Seg Neutrophils # 4.0 K/mm3 (1.8-7.7) 05/31/17 05:32 PT 13.6 Sec. (12.2-14.9) 05/28/17 13:40 INR 1.05 (0.87-1.13) 05/28/17 13:40 APTT 26.7 Sec. (24.2-36.6) 05/28/17 16:30 VBG pH 7.341 (7.320-7.420) 05/28/17 13:40 Sodium 141 mmol/L (137-145) 05/31/17 05:32 Potassium 3.7 mmol/L (3.6-5.0) 05/31/17 05:32 Chloride 103.0 mmol/L (98-107) 05/31/17 05:32 Carbon Dioxide 24 mmol/L (22-30) 05/31/17 05:32 Anion Gap 18 mmol/L 05/31/17 05:32 BUN 10 mg/dL (9-20) 05/31/17 05:32 Creatinine 1.0 mg/dL (0.8-1.5) 05/31/17 05:32 Estimated GFR > 60 ml/min 05/31/17 05:32 BUN/Creatinine Ratio 10.00 % 05/31/17 05:32 Glucose 97 mg/dL (75-100) 05/31/17 05:32 Lactic Acid 1.30 mmol/L (0.7-2.0) 05/28/17 18:27 Calcium 8.9 mg/dL (8.4-10.2) 05/31/17 05:32 Total Bilirubin 0.70 mg/dL (0.1-1.2) 05/31/17 05:32 AST 13 units/L (5-40) 05/31/17 05:32 ALT 14 units/L (7-56) 05/31/17 05:32 Alkaline Phosphatase 79 units/L (35-129) 05/31/17 05:32 Total Protein 7.1 g/dL (6.3-8.2) 05/31/17 05:32 Albumin 3.8 g/dL (3.9-5) L 05/31/17 05:32 Albumin/Globulin Ratio 1.2 % 05/31/17 05:32 Triglycerides 60 mg/dL (2-149) 05/30/17 04:38 Cholesterol 217 mg/dL (50-199) H 05/30/17 04:38 LDL Cholesterol Direct 158 mg/dL (50-130) H 05/30/17 04:38 HDL Cholesterol 47 mg/dL (40-59) 05/30/17 04:38 Cholesterol/HDL Ratio 4.61 % 05/30/17 04:38 Urine Color Straw (Yellow) 05/28/17 18:19 Urine Turbidity Clear (Clear) 05/28/17 18:19 Urine pH 7.0 (5.0-7.0) 05/28/17 18:19 Ur Specific [place] 1.005 (1.003-1.030) 05/28/17 18:19 Urine Protein <15 mg/dl mg/dL (Negative) 05/28/17 18:19 Urine Glucose (UA) Neg mg/dL (Negative) 05/28/17 18:19 Urine Ketones Neg mg/dL (Negative) 05/28/17 18:19 Urine Blood Neg (Negative) 05/28/17 18:19 Urine Nitrite Pos (Negative) 05/28/17 18:19 Urine Bilirubin Neg (Negative) 05/28/17 18:19 Urine Urobilinogen < 2.0 mg/dL (<2.0) 05/28/17 18:19 Ur Leukocyte Esterase Mod (Negative) 05/28/17 18:19 Urine WBC (Auto) 1.0 /HPF (0.0-6.0) 05/28/17 18:19 Urine RBC (Auto) 1.0 /HPF (0.0-6.0) 05/28/17 18:19 U Epithel Cells (Auto) 1.0 /HPF (0-13.0) 05/28/17 18:19 Urine Bacteria (Auto) 3+ /HPF (Negative) 05/28/17 18:19 Urine Mucus Few /HPF 05/28/17 18:19 Vancomycin Trough 14.4 ug/mL (5.0-20.0) 06/01/17 06:12 Blood Type B NEGATIVE 06/02/17 04:21 Antibody Screen TNR 06/02/17 04:21 CHRISTIANO Antibody Screen Negative 06/02/17 04:21
[2017-06-02] MEDS ORDERED: DIPRIVAN 10 MG/ML 1,000 MG/100 ML BOTTLE IV SCH ×2 (18:10→21:00)
[2017-06-02] MEDS ORDERED: NARCAN 0.4 MG/1 ML IV PRN (18:21)
[2017-06-02] MEDS ORDERED: SODIUM CHLORIDE FLUSH SYRINGE 10 ML IV PRN (18:21)
--- NOTE | 2017-06-02 18:21 | Post Anesthesia Evaluation ---
- Post Anesthesia Evaluation Patient Participated: No Airway Patent: Yes Stable Respiratory Function: Yes Nausea/Vomiting: No Temp > 96.8F: Yes Pain Manageable: Yes Adequeate Hydration: Yes Anesthesia Complications: No Patient on Ventilator: Yes
[2017-06-02] MEDS ORDERED: VERSED IV ONE (18:55)
[2017-06-02] MEDS ORDERED: DIPRIVAN 10 MG/ML 1,000 MG/100 ML BOTTLE IV ONE (19:00)
[2017-06-02 19:02] LABS: ISTAT Base Excess -24; ISTAT HCO3 4.4; ISTAT PCO2 11.6 (35-45); ISTAT PH 7.189 (7.35-7.45); ISTAT PO2 81 (80-105); ISTAT SO2 93; ISTAT TCO2 < 5
[2017-06-02 19:02] LABS: ISTAT K 2.3 (3.5-4.9)
[2017-06-02] MEDS ORDERED: SODIUM BICARBONATE IV PRN (20:00)
--- NOTE | 2017-06-02 20:00 | XRay Report ---
FINAL REPORT EXAM: XR CHEST 1V AP HISTORY: ET PLACEMENT TECHNIQUE: AP portable view of the chest. PRIORS: None. FINDINGS: The endotracheal tube tip is approximately 10 cm above the vinayak. There is a right-sided central venous catheter with the tip at the SVC right atrial junction. There is a and NG tube in place with the tip in the stomach. The cardiomediastinal silhouette appears normal. The lungs are clear. The bones and soft tissues are unremarkable. IMPRESSION: The endotracheal tube is approximately 10 cm above the vinayak. Recommend advancement of 2 to 6 cm. No evidence of acute cardiopulmonary disease.
[2017-06-02] MEDS ORDERED: SODIUM BICARBONATE IV ONE (20:11)
[2017-06-02] MEDS ORDERED: ARTIFICIAL TEARS OPHTH OINT OU PRN (21:19)
[2017-06-02] MEDS ORDERED: VASELINE LIP THERAPY TP PRN (21:19)
[2017-06-02 22:47] LABS: Hematocrit 38.5 % (35.5-45.6); Hemoglobin 12.3 gm/dl (11.8-15.2); Mean Corpuscular HGB Conc 32 % (32-34); Mean Corpuscular Hemoglobin 26 pg (28-32); Mean Corpuscular Volume 83 fl (84-94); Platelet Count 178 K/mm3 (140-440); Red Blood Count 4.64 M/mm3 (3.65-5.03); Red Cell Distribution Width 14.5 % (13.2-15.2); White Blood Count 14.6 K/mm3 (4.5-11.0)
--- NOTE | 2017-06-02 23:12 | XRay Report ---
FINAL REPORT PROCEDURE: XR CHEST 1V AP TECHNIQUE: Chest radiograph anteroposterior view. CPT 48530 HISTORY: ETT placement COMPARISON: 06/02/2017 1621 hours FINDINGS: Heart: Normal. Mediastinum/Vessels: Normal. Lungs/Pleural space: Normal. Bony thorax: No acute osseous abnormality. Life support devices: Endotracheal tube is terminating about 4.5 centimeters above the vinayak. A right jugular central line is terminating at the level of cavoatrial junction. A feeding tube is terminating in the stomach. IMPRESSION: No acute pulmonary process. Endotracheal tube is terminating 4.5 centimeters above the vinayak.
[2017-06-02 23:17] LABS: Anion Gap 22 mmol/L; BUN/Creatinine Ratio 7.27; Blood Urea Nitrogen 8 mg/dL (9-20); Calcium 6.8 mg/dL (8.4-10.2); Carbon Dioxide 18 mmol/L (22-30); Glucose 178 mg/dL (75-100); Potassium 3.9 mmol/L (3.6-5.0); Sodium 142 mmol/L (137-145)
[2017-06-02 23:21] LABS: Basophils % (Manual) 0 % (0.0-1.8); Blastocytes % (Manual) 0 %; Eosinophils % (Manual) 0 % (0.0-4.3)
[2017-06-02 23:22] LABS: Anisocytosis 1+; Diff Status Complete; Elliptocytes 1+; Platelet Clumps 1+
[2017-06-03] MEDS ORDERED: ZOSYN/NS 4.5GM/100ML 4.5 GM/100 ML VIAL IV SCH
[2017-06-03] MEDS: LOPRESSOR IV SCH ×5 (00:22→19:07)
[2017-06-03 04:24] LABS: Hematocrit 37.2 % (35.5-45.6); Hemoglobin 11.9 gm/dl (11.8-15.2)
[2017-06-03 04:38] LABS: Anion Gap 17 mmol/L; Blood Urea Nitrogen 9 mg/dL (9-20); Calcium 7.1 mg/dL (8.4-10.2); Carbon Dioxide 21 mmol/L (22-30); Chloride 105.7 mmol/L (98-107); Glucose 135 mg/dL (75-100); Potassium 4.1 mmol/L (3.6-5.0); Sodium 140 mmol/L (137-145)
[2017-06-03 06:09] LABS: ISTAT Base Excess -4; ISTAT HCO3 21.4; ISTAT PCO2 39.1 (35-45); ISTAT PH 7.345 (7.35-7.45); ISTAT PO2 132 (80-105); ISTAT SO2 99; ISTAT TCO2 23
--- NOTE | 2017-06-03 06:09 | XRay Report ---
FINAL REPORT PROCEDURE: XR CHEST 1V AP TECHNIQUE: Chest radiograph anteroposterior view. CPT 04436 HISTORY: follow up respiratory failure COMPARISON: 06/02/2017 FINDINGS: Heart: Normal. Mediastinum/Vessels: Normal. Lungs/Pleural space: Normal. Bony thorax: No acute osseous abnormality. Life support devices: The endotracheal tube ends 5 centimeters above the vinayak. A nasogastric tube ends below the hemidiaphragms. Right central catheter ends in the SVC. IMPRESSION: There is no acute cardiopulmonary process. Tubes and lines are properly positioned..
[2017-06-03] MEDS ORDERED: SUBLIMAZE 500 MCG in NACL 0.9% 90 ML EPIDURAL SCH (07:00)
[2017-06-03] MEDS: NACL 0.9% 1000 ML 1,000 ML IV SCH ×2 (08:36→20:21)
--- NOTE | 2017-06-03 09:20 | Progress Note ---
Assessment and Plan Assessment: PVD - s/p aorto-bifemoral bypass yesterday; s/p first and second right toe amputations in March 2017 with nonhealing wounds Acute respiratory failure - post-operatively; possible extubation today. Lactic acidosis - improved; wound cultures positive for E. Coli. Sinus tachycardia - improved; physiologic secondary to respiratory failure and pain. UTI HTN HLP Tobacco use - cessation encouraged. Plan: Currently stable cardiac status. Cont present regimen - on IV lopressor Q6H per vascular. Wean vent as tolerated. The patient has been seen in conjunction with Dr. Hess who agrees with the assessment and plan of care. Subjective Date of service: 06/03/17 Principal diagnosis: PVD Interval history: Pt seen in ICU, s/p aortobifemoral bypass yesterday, remains intubated. Pt alert and following commands appropriately with possible extubation today per primary RN. Pain pump infusing. Some ST noted on tele overnight but currently with NSR, BPs stable. Objective Last Vital Signs Temp 99.1 F 06/03/17 08:00 Pulse 102 H 06/03/17 08:50 Resp 20 06/03/17 08:50 BP 118/79 06/03/17 08:50 Pulse Ox 100 06/03/17 08:50 - Physical Examination General: Appears Well HEENT: Positive: PERRL, Normocephaly, Mucus Membranes Moist Neck: Positive: neck supple, trachea midline Cardiac: Positive: Reg Rate and Rhythm, S1/S2 Lungs: Positive: clear to auscultation, Oxygen, Ventilated Respirations Neuro: Positive: Grossly Intact, Cranial Nerve 2-12 Intact Abdomen: Positive: Unremarkable, Soft, Active Bowel Sounds. Negative: Tender Skin: Positive: Clear, Other (right foot in bandage ). Negative: Rash Musculoskeletal: No Fluid Collection Extremities: Present: Other (No palpable pulses from hips down). Absent: edema - Labs and Meds CBC 06/02/17 06/03/17 Range/Units 22:13 04:00 WBC 14.6 H (4.5-11.0) K/mm3 RBC 4.64 (3.65-5.03) M/mm3 Hgb 12.3 11.9 (11.8-15.2) gm/dl Hct 38.5 37.2 (35.5-45.6) % Plt Count 178 (140-440) K/mm3 Comprehensive Metabolic Panel 06/02/17 06/03/17 Range/Units 22:13 04:00 Sodium 142 140 (137-145) mmol/L Potassium 3.9 4.1 (3.6-5.0) mmol/L Chloride 106.0 105.7 (98-107) mmol/L Carbon Dioxide 18 L 21 L (22-30) mmol/L BUN 8 L 9 (9-20) mg/dL Creatinine 1.1 1.0 (0.8-1.5) mg/dL Glucose 178 H 135 H (75-100) mg/dL Calcium 6.8 L D 7.1 L (8.4-10.2) mg/dL - Imaging and Cardiology EKG: report reviewed, image reviewed Echo: report reviewed - Telemetry EKG Rhythm: Sinus Rhythm - EKG Sinus rhythms and dysrhythmias: sinus rhythm Myocardial infarction: inferior TN (old age inde
--- NOTE | 2017-06-03 09:25 | Progress Note ---
Assessment and Plan Assessment and plan: --Peripheral vascular disease status postAorto fem bypass surgery bypass surgery, vascular following --intubation during surgery ; continue ventilatory support, pulmonary following wean and extubate as tolerated --Secondary to urinary tract infection/Escherichia coli ESBL contact isolation, change antibiotics to meropenem ID consultation --Gram-negative wound infection, continue wound care and IV antibiotics --Nonhealing foot ulcer continue current management --Hypertension; moderate control. Continue current antihypertensives and when necessary medications --Ongoing tobacco use; smoking cessation counseling done patient strongly advised to quit tobacco, his nicotine patch --Dyslipidemia; lipid lowering medications --DVT prophylaxis per vascular Plan of care discussed with the patient as well as his nurse History Interval history: Patient seen and evaluated this monitoring in ICU medical records reviewed s/p aortic femoral bypass surgery yesterday Reportedly intubated on ventilatory support Urine cultures Escherichia coli ESBL, on contact isolation Hospitalist Physical - Constitutional Vitals: Temp Pulse Resp BP Pulse Ox 99.1 F 102 H 20 118/79 100 06/03/17 08:00 06/03/17 08:50 06/03/17 08:50 06/03/17 08:50 06/03/17 08:50 General appearance: Present: no acute distress, well-nourished, other ( intubated on ventilatory support) - EENT Eyes: Present: PERRL, EOM intact - Neck Neck: Present: supple - Respiratory Respiratory effort: normal Respiratory: bilateral: diminished, rhonchi, negative: rales, wheezing - Cardiovascular Rhythm: regular Heart Sounds: Present: S1 & S2 - Extremities Extremities: No edema, abnormal (dressing in place) - Abdominal General gastrointestinal: soft, non-tender, non-distended, normal bowel sounds - Integumentary Integumentary: Present: clear, warm - Psychiatric Psychiatric: other (intubated on vent) - Neurologic Neurologic: other (intubated on ventilatory support) Results - Labs CBC & Chem 7: 06/03/17 04:00 06/03/17 04:00 Labs: Laboratory Last Values WBC 14.6 K/mm3 (4.5-11.0) H 06/02/17 22:13 RBC 4.64 M/mm3 (3.65-5.03) 06/02/17 22:13 Hgb 11.9 gm/dl (11.8-15.2) 06/03/17 04:00 POC Hgb 8.8 (12-17) L 06/02/17 18:53 Hct 37.2 % (35.5-45.6) 06/03/17 04:00 POC Hct 26 (38-51) L 06/02/17 18:53 MCV 83 fl (84-94) L 06/02/17 22:13 MCH 26 pg (28-32) L 06/02/17 22:13 MCHC 32 % (32-34) 06/02/17 22:13 RDW 14.5 % (13.2-15.2) 06/02/17 22:13 Plt Count 178 K/mm3 (140-440) 06/02/17 22:13 Lymph % (Auto) 38.7 % (13.4-35.0) H 05/31/17 05:32 [place] % (Auto) 6.1 % (0.0-7.3) 05/31/17 05:32 Eos % (Auto) 1.6 % (0.0-4.3) 05/31/17 05:32 Baso % (Auto) 0.4 % (0.0-1.8) 05/31/17 05:32 Lymph # 2.9 K/mm3 (1.2-5.4) 05/31/17 05:32 [place] # 0.5 K/mm3 (0.0-0.8) 05/31/17 05:32 Eos # 0.1 K/mm3 (0.0-0.4) 05/31/17 05:32 Baso # 0.0 K/mm3 (0.0-0.1) 05/31/17 05:32 Add Manual Diff Complete 06/02/17 22:13 Total Counted 100 06/02/17 22:13 Seg Neutrophils % Administrative Coordinator 06/02/17 22:13 Seg Neuts % (Manual) 73.0 % (40.0-70.0) H 06/02/17 22:13 Band Neutrophils % 21.0 % 06/02/17 22:13 Lymphocytes % (Manual) 2.0 % (13.4-35.0) L 06/02/17 22:13 Reactive Lymphs % (Man) 0 % 06/02/17 22:13 Monocytes % (Manual) 4.0 % (0.0-7.3) 06/02/17 22:13 Eosinophils % (Manual) 0 % (0.0-4.3) 06/02/17 22:13 Basophils % (Manual) 0 % (0.0-1.8) 06/02/17 22:13 Metamyelocytes % 0 % 06/02/17 22:13 Myelocytes % 0 % 06/02/17 22:13 Promyelocytes % 0 % 06/02/17 22:13 Blast Cells % 0 % 06/02/17 22:13 Nucleated RBC % Not Reportable 06/02/17 22:13 Seg Neutrophils # 4.0 K/mm3 (1.8-7.7) 05/31/17 05:32 Seg Neutrophils # Man 10.7 K/mm3 (1.8-7.7) H 06/02/17 22:13 Band Neutrophils # 3.1 K/mm3 06/02/17 22:13 Lymphocytes # (Manual) 0.3 K/mm3 (1.2-5.4) L 06/02/17 22:13 Abs React Lymphs (Man) 0.0 K/mm3 06/02/17 22:13 Monocytes # (Manual) 0.6 K/mm3 (0.0-0.8) 06/02/17 22:13 Eosinophils # (Manual) 0.0 K/mm3 (0.0-0.4) 06/02/17 22:13 Basophils # (Manual) 0.0 K/mm3 (0.0-0.1) 06/02/17 22:13 Metamyelocytes # 0.0 K/mm3 06/02/17 22:13 Myelocytes # 0.0 K/mm3 06/02/17 22:13 Promyelocytes # 0.0 K/mm3 06/02/17 22:13 Blast Cells # 0.0 K/mm3 06/02/17 22:13 WBC Morphology Not Reportable 06/02/17 22:13 Hypersegmented Neuts Not Reportable 06/02/17 22:13 Hyposegmented Neuts Not Reportable 06/02/17 22:13 Hypogranular Neuts Not Reportable 06/02/17 22:13 Smudge Cells Not Reportable 06/02/17 22:13 Toxic Granulation Not Reportable 06/02/17 22:13 Toxic Vacuolation Not Reportable 06/02/17 22:13 Dohle Bodies Not Reportable 06/02/17 22:13 Pelger-Huet Anomaly Not Reportable 06/02/17 22:13 Yadiel Rods Not Reportable 06/02/17 22:13 Platelet Estimate Appears normal 06/02/17 22:13 Clumped Platelets 1+ 06/02/17 22:13 Plt Clumps, EDTA Not Reportable 06/02/17 22:13 Large Platelets Not Reportable 06/02/17 22:13 Giant Platelets Not Reportable 06/02/17 22:13 Platelet Satelliting Not Reportable 06/02/17 22:13 Plt Morphology Comment Not Reportable 06/02/17 22:13 RBC Morphology Not Reportable 06/02/17 22:13 Dimorphic RBCs Not Reportable 06/02/17 22:13 Polychromasia Not Reportable 06/02/17 22:13 Hypochromasia Not Reportable 06/02/17 22:13 Poikilocytosis Not Reportable 06/02/17 22:13 Anisocytosis 1+ 06/02/17 22:13 Microcytosis Not Reportable 06/02/17 22:13 Macrocytosis Not Reportable 06/02/17 22:13 Spherocytes Not Reportable 06/02/17 22:13 Pappenheimer Bodies Not Reportable 06/02/17 22:13 Sickle Cells Not Reportable 06/02/17 22:13 Target Cells Not Reportable 06/02/17 22:13 Tear Drop Cells Not Reportable 06/02/17 22:13 Ovalocytes Not Reportable 06/02/17 22:13 Helmet Cells Not Reportable 06/02/17 22:13 [place] Bodies Not Reportable 06/02/17 22:13 Viola Rings Not Reportable 06/02/17 22:13 [place] Cells Not Reportable 06/02/17 22:13 Bite Cells Not Reportable 06/02/17 22:13 Crenated Cell Not Reportable 06/02/17 22:13 Elliptocytes 1+ 06/02/17 22:13 Acanthocytes (Spur) Not Reportable 06/02/17 22:13 Rouleaux Not Reportable 06/02/17 22:13 Hemoglobin C Crystals Not Reportable 06/02/17 22:13 Schistocytes Not Reportable 06/02/17 22:13 Malaria parasites Not Reportable 06/02/17 22:13 Roni Bodies Not Reportable 06/02/17 22:13 Hem Pathologist Commnt No 06/02/17 22:13 PT 13.6 Sec. (12.2-14.9) 05/28/17 13:40 INR 1.05 (0.87-1.13) 05/28/17 13:40 APTT 26.7 Sec. (24.2-36.6) 05/28/17 16:30 POC ABG pH 7.345 (7.35-7.45) L 06/03/17 05:58 POC ABG pCO2 39.1 (35-45) 06/03/17 05:58 POC ABG pO2 132 (80-105) H 06/03/17 05:58 POC ABG HCO3 21.4 06/03/17 05:58 POC ABG Total CO2 23 06/03/17 05:58 POC ABG O2 Sat 99 06/03/17 05:58 POC ABG Base Excess -4 06/03/17 05:58 VBG pH 7.341 (7.320-7.420) 05/28/17 13:40 POC Sodium 154 mmol/L (138-146) H 06/02/17 18:53 POC Potassium 2.3 (3.5-4.9) L 06/02/17 18:53 POC Chloride 122 (98-109) H 06/02/17 18:53 FiO2 35 % 06/03/17 05:58 Sodium 140 mmol/L (137-145) 06/03/17 04:00 Potassium 4.1 mmol/L (3.6-5.0) 06/03/17 04:00 Chloride 105.7 mmol/L (98-107) 06/03/17 04:00 Carbon Dioxide 21 mmol/L (22-30) L 06/03/17 04:00 Anion Gap 17 mmol/L 06/03/17 04:00 POC BUN 3 mg/dl (8-26) L 06/02/17 18:53 BUN 9 mg/dL (9-20) 06/03/17 04:00 Creatinine 1.0 mg/dL (0.8-1.5) 06/03/17 04:00 Estimated GFR > 60 ml/min 06/03/17 04:00 BUN/Creatinine Ratio 9.00 % 06/03/17 04:00 Glucose 135 mg/dL (75-100) H 06/03/17 04:00 POC Glucose 105 (70-105) 06/02/17 18:53 Lactic Acid 1.30 mmol/L (0.7-2.0) 05/28/17 18:27 Calcium 7.1 mg/dL (8.4-10.2) L 06/03/17 04:00 Total Bilirubin 0.70 mg/dL (0.1-1.2) 05/31/17 05:32 AST 13 units/L (5-40) 05/31/17 05:32 ALT 14 units/L (7-56) 05/31/17 05:32 Alkaline Phosphatase 79 units/L (35-129) 05/31/17 05:32 Total Protein 7.1 g/dL (6.3-8.2) 05/31/17 05:32 Albumin 3.8 g/dL (3.9-5) L 05/31/17 05:32 Albumin/Globulin Ratio 1.2 % 05/31/17 05:32 Triglycerides 60 mg/dL (2-149) 05/30/17 04:38 Cholesterol 217 mg/dL (50-199) H 05/30/17 04:38 LDL Cholesterol Direct 158 mg/dL (50-130) H 05/30/17 04:38 HDL Cholesterol 47 mg/dL (40-59) 05/30/17 04:38 Cholesterol/HDL Ratio 4.61 % 05/30/17 04:38 Urine Color Straw (Yellow) 05/28/17 18:19 Urine Turbidity Clear (Clear) 05/28/17 18:19 Urine pH 7.0 (5.0-7.0) 05/28/17 18:19 Ur Specific [place] 1.005 (1.003-1.030) 05/28/17 18:19 Urine Protein <15 mg/dl mg/dL (Negative) 05/28/17 18:19 Urine Glucose (UA) Neg mg/dL (Negative) 05/28/17 18:19 Urine Ketones Neg mg/dL (Negative) 05/28/17 18:19 Urine Blood Neg (Negative) 05/28/17 18:19 Urine Nitrite Pos (Negative) 05/28/17 18:19 Urine Bilirubin Neg (Negative) 05/28/17 18:19 Urine Urobilinogen < 2.0 mg/dL (<2.0) 05/28/17 18:19 Ur Leukocyte Esterase Mod (Negative) 05/28/17 18:19 Urine WBC (Auto) 1.0 /HPF (0.0-6.0) 05/28/17 18:19 Urine RBC (Auto) 1.0 /HPF (0.0-6.0) 05/28/17 18:19 U Epithel Cells (Auto) 1.0 /HPF (0-13.0) 05/28/17 18:19 Urine Bacteria (Auto) 3+ /HPF (Negative) 05/28/17 18:19 Urine Mucus Few /HPF 05/28/17 18:19 Vancomycin Trough 14.4 ug/mL (5.0-20.0) 06/01/17 06:12 Blood Type B NEGATIVE 06/02/17 04:21 Antibody Screen TNR 06/02/17 04:21 CHRISTIANO Antibody Screen Negative 06/02/17 04:21
[2017-06-03] MEDS: SUBLIMAZE 500 MCG in NACL 0.9% 90 ML EPIDURAL SCH ×2 (09:36→22:31)
[2017-06-03] MEDS: MERREM/NS 500 MG/50 ML 500 MG/50 ML BAG IV SCH ×3 (09:54→21:59)
[2017-06-03] MEDS: ASPIRIN PO SCH (10:14)
[2017-06-03] MEDS: HCTZ PO SCH (10:14)
[2017-06-03] MEDS: PEPCID IV SCH ×2 (10:14→22:00)
[2017-06-03] MEDS: NORVASC PO SCH (10:33)
--- NOTE | 2017-06-03 11:03 | Consultation ---
History of Present Illness Consult date: 06/03/17 Requesting physician: BALJINDER CHAPMAN Reason for consult: other (post-op failure) History of present illness: 47 y/o male status post Aorta-Fem bypass, finished late so was left intubated overnight. CXR normal. ABG good. All lung mechanics and test suggest extubation would be tolerated. Past History Past Medical History: hypertension, hyperlipidemia, PVD Past Surgical History: Other (right first and second toe amputation March 2017) Social history: smoking, other (Lives with girlfriend). denies: alcohol abuse, prescription drug abuse Family history: hypertension Medications and Allergies Allergies Allergy/AdvReac Type Severity Reaction Status Date / Time No Known Allergies Allergy Verified 10/31/15 12:07 Home Medications Medication Instructions Recorded Confirmed Last Taken Type amLODIPine [Norvasc] 10 mg PO QDAY #30 tablet 03/27/17 05/28/17 05/26/17 Rx oxyCODONE /ACETAMINOPHEN [Percocet 2 tab PO Q6H PRN #14 tablet 03/27/17 Unknown Rx 5/325 mg] Ibuprofen [Motrin] 800 mg PO Q4-6H PRN 05/28/17 05/28/17 05/28/17 History Ranitidine HCl [Heartburn Relief] 75 mg PO QDAY PRN 05/28/17 05/28/17 Unknown History Active Meds: Active Medications Amlodipine Besylate (Norvasc) 10 mg PO QDAY [facility] Last Admin: 06/03/17 10:33 Dose: 10 mg Aspirin (Aspirin) 325 mg PO QDAY [facility] Last Admin: 06/03/17 10:14 Dose: 325 mg Atorvastatin Calcium (Lipitor) 40 mg PO QHS [facility] Last Admin: 06/02/17 22:00 Dose: Not Given Famotidine (Pepcid) 20 mg IV BID [facility] Last Admin: 06/03/17 10:14 Dose: 20 mg Hydrochlorothiazide (Hctz) 12.5 mg PO QDAY [facility] Last Admin: 06/03/17 10:14 Dose: 12.5 mg Hydrophilic Ointment (Vaseline Lip Therapy) 1 applic TP Q2H PRN PRN Reason: Dry Lips Sodium Chloride (Nacl 0.9% 1000 Ml) 1,000 mls @ 100 mls/hr IV DIRECT [facility] Last Admin: 06/03/17 08:36 Dose: 100 mls/hr Propofol (Diprivan 10 Mg/Ml) 1,000 mg in 100 mls @ 2.457 mls/hr IV TITR [facility]; 5 MCG/KG/MIN PRN Reason: Protocol Meropenem (Merrem/Ns 500 Mg/50 Ml) 500 mg in 50 mls @ 50 mls/hr IV Q6H [facility] Last Admin: 06/03/17 09:54 Dose: 50 mls/hr Fentanyl 500 mcg/ Sodium (Chloride) 100 mls @ 8 mls/hr EPIDURAL DIRECT [facility] PRN Reason: Protocol Last Admin: 06/03/17 09:36 Dose: 8 mls/hr Metoprolol Tartrate (Lopressor) 5 mg IV Q6HR [facility] Morphine Sulfate (Morphine) 4 mg IV Q4H PRN PRN Reason: Pain , Severe (7-10) Last Admin: 06/02/17 21:02 Dose: 4 mg Morphine Sulfate (Morphine) 2 mg IV Q4H PRN PRN Reason: Pain, Moderate (4-6) Multi-Ingred Cream/Lotion/Oil/Oint (Artificial Tears Ophth Oint) 1 applic OU Q4H PRN PRN Reason: Dry Eye(s) Ondansetron HCl (Zofran) 4 mg IV Q4H PRN PRN Reason: Nausea And Vomiting Last Admin: 05/30/17 22:57 Dose: 4 mg Oxycodone/Acetaminophen (Percocet 5/325) 1 tab PO Q6H PRN PRN Reason: Pain, Moderate (4-6) Last Admin: 05/30/17 15:15 Dose: 1 tab Sodium Chloride (Sodium Chloride Flush Syringe 10 Ml) 10 ml IV PRN PRN PRN Reason: LINE FLUSH Review of Systems ROS unobtainable: due to endotracheal tube Physical Examination Vital signs: Vital Signs Temp Pulse Resp BP Pulse Ox 98.8 F 139 H 16 158/104 98 05/28/17 13:28 05/28/17 13:28 05/28/17 13:28 05/28/17 13:28 05/28/17 13:28 General appearance: no acute distress, alert Eyes: non-icteric ENT: other (orally intubated) Neck: supple Effort: normal Ascultation: Bilateral: clear Percussion: Bilateral: not dull Cardiovascular: regular rate and rhythm Gastrointestinal: normoactive bowel sounds Integumentary: normal normal mental status, non-focal exam Results - Laboratory Findings CBC and BMP: 06/03/17 04:00 06/03/17 04:00 ABG POC ABG pH 7.345 (7.35-7.45) L 06/03/17 05:58 POC ABG pCO2 39.1 (35-45) 06/03/17 05:58 POC ABG pO2 132 (80-105) H 06/03/17 05:58 POC ABG HCO3 21.4 06/03/17 05:58 POC ABG Total CO2 23 06/03/17 05:58 POC ABG O2 Sat 99 06/03/17 05:58 PT/INR, D-dimer PT 13.6 Sec. (12.2-14.9) 05/28/17 13:40 INR 1.05 (0.87-1.13) 05/28/17 13:40 Abnormal lab findings: Abnormal Labs 05/30/17 05/31/17 05/31/17 04:38 05:32 05:32 WBC RBC 5.09 H POC Hgb POC Hct MCV 83 L MCH 27 L Lymph % (Auto) 38.7 H Seg Neuts % (Manual) Lymphocytes % (Manual) Seg Neutrophils # Man Lymphocytes # (Manual) POC ABG pH POC ABG pCO2 POC ABG pO2 POC Sodium POC Potassium POC Chloride Carbon Dioxide POC BUN BUN Glucose Calcium Albumin 3.8 L Cholesterol 217 H LDL Cholesterol Direct 158 H 06/02/17 06/02/17 06/02/17 18:42 18:53 22:13 WBC 14.6 H RBC POC Hgb 8.8 L POC Hct 26 L MCV 83 L MCH 26 L Lymph % (Auto) Seg Neuts % (Manual) 73.0 H Lymphocytes % (Manual) 2.0 L Seg Neutrophils # Man 10.7 H Lymphocytes # (Manual) 0.3 L POC ABG pH 7.189 L POC ABG pCO2 11.6 L POC ABG pO2 POC Sodium 154 H POC Potassium 2.3 L POC Chloride 122 H Carbon Dioxide POC BUN 3 L BUN Glucose Calcium Albumin Cholesterol LDL Cholesterol Direct 06/02/17 06/03/17 06/03/17 22:13 04:00 05:58 WBC RBC POC Hgb POC Hct MCV MCH Lymph % (Auto) Seg Neuts % (Manual) Lymphocytes % (Manual) Seg Neutrophils # Man Lymphocytes # (Manual) POC ABG pH 7.345 L POC ABG pCO2 POC ABG pO2 132 H POC Sodium POC Potassium POC Chloride Carbon Dioxide 18 L 21 L POC BUN BUN 8 L Glucose 178 H 135 H Calcium 6.8 L D 7.1 L Albumin Cholesterol LDL Cholesterol Direct - Diagnostic Findings Chest x-ray: image reviewed (clear lung salazar) Assessment and Plan 47 y/o male status post vascular surgery, with admitted to ICU, intubated. 1. Extubate this am 2. Follow up vascular recs 3. Will continue to follow with you. CCT 31 minutes.
[2017-06-03] MEDS: ZOFRAN IV PRN ×2 (11:15→19:06)
--- NOTE | 2017-06-03 15:13 | Progress Note ---
Assessment and Plan Pt is Day 1 s/p Aortobifem Plan: - d/c NG Tube - keep epidural in place. Can consider d/c tomorrow. Anesthesia is following - may have ice chips Subjective Date of service: 06/03/17 Principal diagnosis: PVD Interval history: Currently doing well. Minimal pain complaints. Extubated earlier today. Patient is AAOx3, in no acute distress. Objective - Exam Narrative Exam: Groin and abdominal dressings CDI. - Constitutional Vitals: Vital Signs - 12hr 06/03/17 06/03/17 06/03/17 03:10 03:15 03:20 Temperature Pulse Rate 105 H 106 H Pulse Rate [ From Monitor] Respiratory 20 20 Rate Blood Pressure 104/77 104/77 O2 Sat by Pulse 100 100 100 Oximetry 06/03/17 06/03/17 06/03/17 03:26 03:30 03:36 Temperature 98.7 F Pulse Rate 108 H Pulse Rate [ From Monitor] Respiratory 20 18 Rate Blood Pressure 108/68 O2 Sat by Pulse 100 Oximetry 06/03/17 06/03/17 06/03/17 03:40 03:50 04:00 Temperature Pulse Rate 106 H 105 H 104 H Pulse Rate [ From Monitor] Respiratory 20 20 20 Rate Blood Pressure 108/68 108/68 107/72 O2 Sat by Pulse 100 100 100 Oximetry 06/03/17 06/03/17 06/03/17 04:10 04:20 04:30 Temperature Pulse Rate 105 H 106 H 102 H Pulse Rate [ From Monitor] Respiratory 20 20 20 Rate Blood Pressure 107/72 107/72 109/80 O2 Sat by Pulse 100 100 100 Oximetry 06/03/17 06/03/17 06/03/17 04:40 04:50 05:00 Temperature Pulse Rate 101 H 105 H 101 H Pulse Rate [ From Monitor] Respiratory 20 20 20 Rate Blood Pressure 109/80 109/80 117/80 O2 Sat by Pulse 100 100 100 Oximetry 06/03/17 06/03/17 06/03/17 05:10 05:20 05:30 Temperature Pulse Rate 102 H 98 H 102 H Pulse Rate [ From Monitor] Respiratory 21 20 20 Rate Blood Pressure 117/80 117/80 114/77 O2 Sat by Pulse 100 100 100 Oximetry 06/03/17 06/03/17 06/03/17 05:40 05:50 05:58 Temperature Pulse Rate 104 H 106 H 105 H Pulse Rate [ From Monitor] Respiratory 18 20 Rate Blood Pressure 114/77 114/77 114/77 O2 Sat by Pulse 100 100 100 Oximetry 06/03/17 06/03/17 06/03/17 06:00 06:10 06:20 Temperature Pulse Rate 99 H 100 H 109 H Pulse Rate [ From Monitor] Respiratory 20 20 20 Rate Blood Pressure 120/81 120/81 120/81 O2 Sat by Pulse 100 100 100 Oximetry 06/03/17 06/03/17 06/03/17 06:30 06:40 06:50 Temperature Pulse Rate 105 H 101 H 98 H Pulse Rate [ From Monitor] Respiratory 20 20 20 Rate Blood Pressure 112/78 112/78 112/78 O2 Sat by Pulse 100 100 100 Oximetry 06/03/17 06/03/17 06/03/17 06:55 07:00 07:10 Temperature Pulse Rate 96 H 100 H 98 H Pulse Rate [ From Monitor] Respiratory 19 20 20 Rate Blood Pressure 117/68 103/70 103/70 O2 Sat by Pulse 100 99 Oximetry 06/03/17 06/03/17 06/03/17 07:20 07:30 07:40 Temperature Pulse Rate 105 H 100 H 101 H Pulse Rate [ From Monitor] Respiratory 17 20 15 Rate Blood Pressure 103/70 121/74 121/74 O2 Sat by Pulse 100 100 100 Oximetry 06/03/17 06/03/17 06/03/17 07:50 08:00 08:10 Temperature 99.1 F Pulse Rate 98 H 102 H 99 H Pulse Rate [ 102 H From Monitor] Respiratory 20 21 20 Rate Blood Pressure 121/74 118/79 118/79 O2 Sat by Pulse 100 100 100 Oximetry 06/03/17 06/03/17 06/03/17 08:20 08:30 08:40 Temperature Pulse Rate 112 H 114 H 96 H Pulse Rate [ From Monitor] Respiratory 18 17 20 Rate Blood Pressure 118/79 118/79 118/79 O2 Sat by Pulse 100 100 100 Oximetry 06/03/17 06/03/17 06/03/17 08:50 09:00 09:10 Temperature Pulse Rate 102 H 96 H 102 H Pulse Rate [ From Monitor] Respiratory 20 20 20 Rate Blood Pressure 118/79 126/75 126/75 O2 Sat by Pulse 100 100 100 Oximetry 06/03/17 06/03/1706/03/17 09:18 09:20 09:25 Temperature Pulse Rate 104 H 105 H 103 H Pulse Rate [ From Monitor] Respiratory 11 L 12 Rate Blood Pressure 126/75 126/75 126/75 O2 Sat by Pulse 100 100 100 Oximetry 06/03/17 06/03/17 06/03/17 09:30 09:40 09:43 Temperature Pulse Rate 115 H 140 H Pulse Rate [ From Monitor] Respiratory 12 19 20 Rate Blood Pressure 125/91 125/91 125/91 O2 Sat by Pulse 100 100 Oximetry 06/03/17 06/03/17 06/03/17 09:50 09:53 10:00 Temperature Pulse Rate 116 H 110 H Pulse Rate [ From Monitor] Respiratory 10 L 18 10 L Rate Blood Pressure 125/91 130/78 130/85 O2 Sat by Pulse 100 100 Oximetry 06/03/17 06/03/17 06/03/17 10:10 10:14 10:20 Temperature Pulse Rate 104 H 110 H 103 H Pulse Rate [ From Monitor] Respiratory 9 L 8 L Rate Blood Pressure 130/85 130/85 130/85 O2 Sat by Pulse 100 100 Oximetry 06/03/17 06/03/17 06/03/17 10:30 10:33 10:40 Temperature Pulse Rate 101 H 99 H 95 H Pulse Rate [ From Monitor] Respiratory 10 L 9 L Rate Blood Pressure 138/87 130/85 138/87 O2 Sat by Pulse 100 100 Oximetry 06/03/17 06/03/17 06/03/17 10:50 11:00 11:06 Temperature Pulse Rate 104 H 109 H Pulse Rate [ From Monitor] Respiratory 9 L 11 L Rate Blood Pressure 138/87 138/87 O2 Sat by Pulse 100 100 100 Oximetry 06/03/17 06/03/17 06/03/17 11:10 11:20 11:30 Temperature Pulse Rate 94 H 90 92 H Pulse Rate [ From Monitor] Respiratory 19 14 15 Rate Blood Pressure 169/93 169/93 139/79 O2 Sat by Pulse 100 100 100 Oximetry 06/03/17 06/03/17 06/03/17 11:40 11:50 11:53 Temperature Pulse Rate 88 81 Pulse Rate [ From Monitor] Respiratory 15 15 14 Rate Blood Pressure 139/79 139/79 119/67 O2 Sat by Pulse 100 100 Oximetry 06/03/17 06/03/17 06/03/17 12:00 12:05 12:10 Temperature Pulse Rate 80 80 82 Pulse Rate [ From Monitor] Respiratory 14 15 Rate Blood Pressure 119/67 119/67 119/67 O2 Sat by Pulse 100 100 Oximetry 06/03/17 06/03/17 06/03/17 12:20 12:30 12:40 Temperature Pulse Rate 80 85 85 Pulse Rate [ From Monitor] Respiratory 13 15 15 Rate Blood Pressure 119/67 124/69 124/69 O2 Sat by Pulse 100 100 100 Oximetry 06/03/17 06/03/17 06/03/17 12:50 13:00 13:10 Temperature Pulse Rate 88 83 80 Pulse Rate [ From Monitor] Respiratory 13 14 13 Rate Blood Pressure 124/69 117/72 117/72 O2 Sat by Pulse 100 100 100 Oximetry 06/03/17 06/03/17 06/03/17 13:20 13:30 13:40 Temperature Pulse Rate 79 84 87 Pulse Rate [ From Monitor] Respiratory 14 19 16 Rate Blood Pressure 117/72 132/76 132/76 O2 Sat by Pulse 100 100 100 Oximetry 06/03/17 06/03/17 13:50 14:00 Temperature Pulse Rate 84 85 Pulse Rate [ From Monitor] Respiratory 14 17 Rate Blood Pressure 132/76 125/70 O2 Sat by Pulse 100 100 Oximetry General appearance: Present: no acute distress - EENT ENT: hearing intact - Respiratory Respiratory effort: normal Extremities: pulses intact (There are symmetric signals in the mid SFA region. ), No edema, normal temperature, normal color Extremity abnormal: pulses diminished (The right PT is palpable. While the left PT and DP demonstrate signals only, the palpable right PT generates a weak signal as well. Therefore, pulses are grossly symmetric.) - Neurologic Neurologic: CNII-XII intact - Psychiatric Psychiatric: appropriate mood/affect - Labs CBC & Chem 7: 06/03/17 04:00 06/03/17 04:00 Labs: Abnormal lab results 06/02/17 06/02/17 06/02/17 Range/Units 18:42 18:53 22:13 WBC 14.6 H (4.5-11.0) K/mm3 POC Hgb 8.8 L (12-17) POC Hct 26 L (38-51) MCV 83 L (84-94) fl MCH 26 L (28-32) pg Seg Neuts % (Manual) 73.0 H (40.0-70.0) % Lymphocytes % (Manual) 2.0 L (13.4-35.0) % Seg Neutrophils # Man 10.7 H (1.8-7.7) K/mm3 Lymphocytes # (Manual) 0.3 L (1.2-5.4) K/mm3 POC ABG pH 7.189 L (7.35-7.45) POC ABG pCO2 11.6 L (35-45) POC ABG pO2 (80-105) POC Sodium 154 H (138-146) mmol/L POC Potassium 2.3 L (3.5-4.9) POC Chloride 122 H (98-109) Carbon Dioxide (22-30) mmol/L POC BUN 3 L (8-26) mg/dl BUN (9-20) mg/dL Glucose (75-100) mg/dL Calcium (8.4-10.2) mg/dL 06/02/17 06/03/17 06/03/17 Range/Units 22:13 04:00 05:58 WBC (4.5-11.0) K/mm3 POC Hgb (12-17) POC Hct (38-51) MCV (84-94) fl MCH (28-32) pg Seg Neuts % (Manual) (40.0-70.0) % Lymphocytes % (Manual) (13.4-35.0) % Seg Neutrophils # Man (1.8-7.7) K/mm3 Lymphocytes # (Manual) (1.2-5.4) K/mm3 POC ABG pH 7.345 L (7.35-7.45) POC ABG pCO2 (35-45) POC ABG pO2 132 H (80-105) POC Sodium (138-146) mmol/L POC Potassium (3.5-4.9) POC Chloride (98-109) Carbon Dioxide 18 L 21 L (22-30) mmol/L POC BUN (8-26) mg/dl BUN 8 L (9-20) mg/dL Glucose 178 H 135 H (75-100) mg/dL Calcium 6.8 L D 7.1 L (8.4-10.2) mg/dL
[2017-06-03] MEDS ORDERED: LEVAQUIN 750MG/150ML 750 MG/150 ML BAG IV SCH (22:00)
[2017-06-04] MEDS: LOPRESSOR IV SCH ×3 (00:05→12:00)
[2017-06-04] MEDS: MERREM/NS 500 MG/50 ML 500 MG/50 ML BAG IV SCH (04:20)
[2017-06-04 04:56] LABS: Basophils % (Auto) 0.2 % (0.0-1.8); Eosinophils % (Auto) 0.2 % (0.0-4.3); Hematocrit 32.5 % (35.5-45.6); Hemoglobin 10.4 gm/dl (11.8-15.2); Mean Corpuscular HGB Conc 32 % (32-34); Mean Corpuscular Hemoglobin 26 pg (28-32); Mean Corpuscular Volume 82 fl (84-94); Platelet Count 144 K/mm3 (140-440); Red Blood Count 3.95 M/mm3 (3.65-5.03); Red Cell Distribution Width 14.7 % (13.2-15.2); White Blood Count 13.1 K/mm3 (4.5-11.0)
[2017-06-04 05:11] LABS: Anion Gap 16 mmol/L; Blood Urea Nitrogen 8 mg/dL (9-20); Calcium 7.7 mg/dL (8.4-10.2); Carbon Dioxide 24 mmol/L (22-30); Chloride 106.4 mmol/L (98-107); Glucose 109 mg/dL (75-100); Potassium 3.7 mmol/L (3.6-5.0); Sodium 143 mmol/L (137-145)
--- NOTE | 2017-06-04 07:30 | XRay Report ---
AP CHEST: HISTORY: Followup respiratory failure The patient has been extubated since yesterday's exam. The nasogastric tube has been removed. The right IJ venous catheter remains in adequate position. AP view of the chest demonstrates a normal mediastinal and cardiac contour with clear lungs and normal bony and soft tissue structures. IMPRESSION: Unremarkable AP chest.
[2017-06-04] MEDS ORDERED: MAGNESIUM SULFATE 2GM/50ML 2 GM/50 ML BAG IV ONE (09:00)
--- NOTE | 2017-06-04 09:12 | Progress Note ---
Assessment and Plan Assessment and plan: --Peripheral vascular disease status postAorto fem bypass surgery , vascular following Continue postop care --S/P extubation --Sepsis Secondary to urinary tract infection/Escherichia coli ESBL ID evaluation noted and appreciated, DC'd all antibiotics --Gram-negative wound infection, status post surgery, off antibiotics per ID --Nonhealing foot ulcer continue wound care , off antibiotics --Hypertension; moderate control. Continue current antihypertensives and when necessary medications --Ongoing tobacco use; smoking cessation counseling done patient strongly advised to quit tobacco, his nicotine patch --Dyslipidemia; lipid lowering medications --DVT prophylaxis per vascular Plan of care discussed with the patient as well as his nurse Stable to transfer out of ICU Physical therapy occupational therapy DC planning. Case management History Interval history: Patient Seen and evaluated this morning medical records reviewed Feels slightly better, or new complaints No new events reported by the nursing staff, alert awake oriented 3 not in acute distress Hospitalist Physical - Constitutional Vitals: Temp Pulse Resp BP Pulse Ox 99.1 F 91 H 15 121/74 100 06/04/17 08:00 06/04/17 08:00 06/04/17 08:00 06/04/17 08:00 06/04/17 08:27 General appearance: Present: no acute distress, well-nourished, other ( intubated on ventilatory support) - EENT Eyes: Present: PERRL, EOM intact - Neck Neck: Present: supple - Respiratory Respiratory effort: normal Respiratory: bilateral: diminished, negative: rales, rhonchi, wheezing - Cardiovascular Rhythm: regular Heart Sounds: Present: S1 & S2 - Extremities Extremities: no ischemia, No edema - Abdominal General gastrointestinal: soft, non-tender, non-distended, hypoactive bowel sounds, other (surgical dressing in place) - Integumentary Integumentary: Present: clear, warm - Psychiatric Psychiatric: appropriate mood/affect, cooperative - Neurologic Neurologic: CNII-XII intact, moves all extremities Results - Labs CBC & Chem 7: 06/04/17 04:37 06/04/17 04:37 Labs: Laboratory Last Values WBC 13.1 K/mm3 (4.5-11.0) H 06/04/17 04:37 RBC 3.95 M/mm3 (3.65-5.03) 06/04/17 04:37 Hgb 10.4 gm/dl (11.8-15.2) L 06/04/17 04:37 POC Hgb 8.8 (12-17) L 06/02/17 18:53 Hct 32.5 % (35.5-45.6) L 06/04/17 04:37 POC Hct 26 (38-51) L 06/02/17 18:53 MCV 82 fl (84-94) L 06/04/17 04:37 MCH 26 pg (28-32) L 06/04/17 04:37 MCHC 32 % (32-34) 06/04/17 04:37 RDW 14.7 % (13.2-15.2) 06/04/17 04:37 Plt Count 144 K/mm3 (140-440) 06/04/17 04:37 Lymph % (Auto) 11.8 % (13.4-35.0) L 06/04/17 04:37 [place] % (Auto) 6.7 % (0.0-7.3) 06/04/17 04:37 Eos % (Auto) 0.2 % (0.0-4.3) 06/04/17 04:37 Baso % (Auto) 0.2 % (0.0-1.8) 06/04/17 04:37 Lymph # 1.5 K/mm3 (1.2-5.4) 06/04/17 04:37 [place] # 0.9 K/mm3 (0.0-0.8) H 06/04/17 04:37 Eos # 0.0 K/mm3 (0.0-0.4) 06/04/17 04:37 Baso # 0.0 K/mm3 (0.0-0.1) 06/04/17 04:37 Add Manual Diff Complete 06/02/17 22:13 Total Counted 100 06/02/17 22:13 Seg Neutrophils % 81.1 % (40.0-70.0) H 06/04/17 04:37 Seg Neuts % (Manual) 73.0 % (40.0-70.0) H 06/02/17 22:13 Band Neutrophils % 21.0 % 06/02/17 22:13 Lymphocytes % (Manual) 2.0 % (13.4-35.0) L 06/02/17 22:13 Reactive Lymphs % (Man) 0 % 06/02/17 22:13 Monocytes % (Manual) 4.0 % (0.0-7.3) 06/02/17 22:13 Eosinophils % (Manual) 0 % (0.0-4.3) 06/02/17 22:13 Basophils % (Manual) 0 % (0.0-1.8) 06/02/17 22:13 Metamyelocytes % 0 % 06/02/17 22:13 Myelocytes % 0 % 06/02/17 22:13 Promyelocytes % 0 % 06/02/17 22:13 Blast Cells % 0 % 06/02/17 22:13 Nucleated RBC % Not Reportable 06/02/17 22:13 Seg Neutrophils # 10.6 K/mm3 (1.8-7.7) H 06/04/17 04:37 Seg Neutrophils # Man 10.7 K/mm3 (1.8-7.7) H 06/02/17 22:13 Band Neutrophils # 3.1 K/mm3 06/02/17 22:13 Lymphocytes # (Manual) 0.3 K/mm3 (1.2-5.4) L 06/02/17 22:13 Abs React Lymphs (Man) 0.0 K/mm3 06/02/17 22:13 Monocytes # (Manual) 0.6 K/mm3 (0.0-0.8) 06/02/17 22:13 Eosinophils # (Manual) 0.0 K/mm3 (0.0-0.4) 06/02/17 22:13 Basophils # (Manual) 0.0 K/mm3 (0.0-0.1) 06/02/17 22:13 Metamyelocytes # 0.0 K/mm3 06/02/17 22:13 Myelocytes # 0.0 K/mm3 06/02/17 22:13 Promyelocytes # 0.0 K/mm3 06/02/17 22:13 Blast Cells # 0.0 K/mm3 06/02/17 22:13 WBC Morphology Not Reportable 06/02/17 22:13 Hypersegmented Neuts Not Reportable 06/02/17 22:13 Hyposegmented Neuts Not Reportable 06/02/17 22:13 Hypogranular Neuts Not Reportable 06/02/17 22:13 Smudge Cells Not Reportable 06/02/17 22:13 Toxic Granulation Not Reportable 06/02/17 22:13 Toxic Vacuolation Not Reportable 06/02/17 22:13 Dohle Bodies Not Reportable 06/02/17 22:13 Pelger-Huet Anomaly Not Reportable 06/02/17 22:13 Yadiel Rods Not Reportable 06/02/17 22:13 Platelet Estimate Appears normal 06/02/17 22:13 Clumped Platelets 1+ 06/02/17 22:13 Plt Clumps, EDTA Not Reportable 06/02/17 22:13 Large Platelets Not Reportable 06/02/17 22:13 Giant Platelets Not Reportable 06/02/17 22:13 Platelet Satelliting Not Reportable 06/02/17 22:13 Plt Morphology Comment Not Reportable 06/02/17 22:13 RBC Morphology Not Reportable 06/02/17 22:13 Dimorphic RBCs Not Reportable 06/02/17 22:13 Polychromasia Not Reportable 06/02/17 22:13 Hypochromasia Not Reportable 06/02/17 22:13 Poikilocytosis Not Reportable 06/02/17 22:13 Anisocytosis 1+ 06/02/17 22:13 Microcytosis Not Reportable 06/02/17 22:13 Macrocytosis Not Reportable 06/02/17 22:13 Spherocytes Not Reportable 06/02/17 22:13 Pappenheimer Bodies Not Reportable 06/02/17 22:13 Sickle Cells Not Reportable 06/02/17 22:13 Target Cells Not Reportable 06/02/17 22:13 Tear Drop Cells Not Reportable 06/02/17 22:13 Ovalocytes Not Reportable 06/02/17 22:13 Helmet Cells Not Reportable 06/02/17 22:13 [place] Bodies Not Reportable 06/02/17 22:13 [place] Rings Not Reportable 06/02/17 22:13 [place] Cells Not Reportable 06/02/17 22:13 Bite Cells Not Reportable 06/02/17 22:13 Crenated Cell Not Reportable 06/02/17 22:13 Elliptocytes 1+ 06/02/17 22:13 Acanthocytes (Spur) Not Reportable 06/02/17 22:13 Rouleaux Not Reportable 06/02/17 22:13 Hemoglobin C Crystals Not Reportable 06/02/17 22:13 Schistocytes Not Reportable 06/02/17 22:13 Malaria parasites Not Reportable 06/02/17 22:13 Roni Bodies Not Reportable 06/02/17 22:13 Hem Pathologist Commnt No 06/02/17 22:13 PT 13.6 Sec. (12.2-14.9) 05/28/17 13:40 INR 1.05 (0.87-1.13) 05/28/17 13:40 APTT 26.7 Sec. (24.2-36.6) 05/28/17 16:30 POC ABG pH 7.345 (7.35-7.45) L 06/03/17 05:58 POC ABG pCO2 39.1 (35-45) 06/03/17 05:58 POC ABG pO2 132 (80-105) H 06/03/17 05:58 POC ABG HCO3 21.4 06/03/17 05:58 POC ABG Total CO2 23 06/03/17 05:58 POC ABG O2 Sat 99 06/03/17 05:58 POC ABG Base Excess -4 06/03/17 05:58 VBG pH 7.341 (7.320-7.420) 05/28/17 13:40 POC Sodium 154 mmol/L (138-146) H 06/02/17 18:53 POC Potassium 2.3 (3.5-4.9) L 06/02/17 18:53 POC Chloride 122 (98-109) H 06/02/17 18:53 FiO2 35 % 06/03/17 05:58 Sodium 143 mmol/L (137-145) 06/04/17 04:37 Potassium 3.7 mmol/L (3.6-5.0) 06/04/17 04:37 Chloride 106.4 mmol/L (98-107) 06/04/17 04:37 Carbon Dioxide 24 mmol/L (22-30) 06/04/17 04:37 Anion Gap 16 mmol/L 06/04/17 04:37 POC BUN 3 mg/dl (8-26) L 06/02/17 18:53 BUN 8 mg/dL (9-20) L 06/04/17 04:37 Creatinine 0.8 mg/dL (0.8-1.5) 06/04/17 04:37 Estimated GFR > 60 ml/min 06/04/17 04:37 BUN/Creatinine Ratio 10.00 % 06/04/17 04:37 Glucose 109 mg/dL (75-100) H 06/04/17 04:37 POC Glucose 105 (70-105) 06/02/17 18:53 Lactic Acid 1.30 mmol/L (0.7-2.0) 05/28/17 18:27 Calcium 7.7 mg/dL (8.4-10.2) L 06/04/17 04:37 Magnesium 1.60 mg/dL (1.7-2.3) L 06/04/17 04:37 Total Bilirubin 0.70 mg/dL (0.1-1.2) 05/31/17 05:32 AST 13 units/L (5-40) 05/31/17 05:32 ALT 14 units/L (7-56) 05/31/17 05:32 Alkaline Phosphatase 79 units/L (35-129) 05/31/17 05:32 Total Protein 7.1 g/dL (6.3-8.2) 05/31/17 05:32 Albumin 3.8 g/dL (3.9-5) L 05/31/17 05:32 Albumin/Globulin Ratio 1.2 % 05/31/17 05:32 Triglycerides 60 mg/dL (2-149) 05/30/17 04:38 Cholesterol 217 mg/dL (50-199) H 05/30/17 04:38 LDL Cholesterol Direct 158 mg/dL (50-130) H 05/30/17 04:38 HDL Cholesterol 47 mg/dL (40-59) 05/30/17 04:38 Cholesterol/HDL Ratio 4.61 % 05/30/17 04:38 Urine Color Straw (Yellow) 05/28/17 18:19 Urine Turbidity Clear (Clear) 05/28/17 18:19 Urine pH 7.0 (5.0-7.0) 05/28/17 18:19 Ur Specific [place] 1.005 (1.003-1.030) 05/28/17 18:19 Urine Protein <15 mg/dl mg/dL (Negative) 05/28/17 18:19 Urine Glucose (UA) Neg mg/dL (Negative) 05/28/17 18:19 Urine Ketones Neg mg/dL (Negative) 05/28/17 18:19 Urine Blood Neg (Negative) 05/28/17 18:19 Urine Nitrite Pos (Negative) 05/28/17 18:19 Urine Bilirubin Neg (Negative) 05/28/17 18:19 Urine Urobilinogen < 2.0 mg/dL (<2.0) 05/28/17 18:19 Ur Leukocyte Esterase Mod (Negative) 05/28/17 18:19 Urine WBC (Auto) 1.0 /HPF (0.0-6.0) 05/28/17 18:19 Urine RBC (Auto) 1.0 /HPF (0.0-6.0) 05/28/17 18:19 U Epithel Cells (Auto) 1.0 /HPF (0-13.0) 05/28/17 18:19 Urine Bacteria (Auto) 3+ /HPF (Negative) 05/28/17 18:19 Urine Mucus Few /HPF 05/28/17 18:19 Vancomycin Trough 14.4 ug/mL (5.0-20.0) 06/01/17 06:12 Blood Type B NEGATIVE 06/02/17 04:21 Antibody Screen TNR 06/02/17 04:21 CHRISTIANO Antibody Screen Negative 06/02/17 04:21
[2017-06-04] MEDS: SUBLIMAZE 500 MCG in NACL 0.9% 90 ML EPIDURAL SCH (09:13)
--- NOTE | 2017-06-04 09:20 | Consultation ---
History of Present Illness - Reason for Consult Consult date: 06/04/17 Ecoli ESBL/UTI Requesting physician: ROGELIO COOLEY - History of Present Illness Mr. Hewitt is a 47-year-old man who was sent over from the wound clinic with concerns of gangrenous toe changes on the right foot. Wound culture on admission had growth of 2 E coli strains predominantly. Because he displayed signs of possible sepsis, he had blood and urine cultures sent. Urine culture is positive for growth of a MDR E coli. The patient denies any urinary complaints, namely no dysuria, gross hematuria or gross pyuria. His 1st/2nd right toes have now been amputated where the revious wound was located. He is on Meropenem. ID consultation is requested for further treatment recommendations. Past History Past Medical History: hypertension, hyperlipidemia, PVD Past Surgical History: Other (right first and second toe amputation March 2017) Social history: smoking, other (Lives with girlfriend). denies: alcohol abuse, prescription drug abuse Family history: hypertension Medications and Allergies Allergies Allergy/AdvReac Type Severity Reaction Status Date / Time No Known Allergies Allergy Verified 10/31/15 12:07 Home Medications Medication Instructions Recorded Confirmed Last Taken Type amLODIPine [Norvasc] 10 mg PO QDAY #30 tablet 03/27/17 05/28/17 05/26/17 Rx oxyCODONE /ACETAMINOPHEN [Percocet 2 tab PO Q6H PRN #14 tablet 03/27/17 Unknown Rx 5/325 mg] Ibuprofen [Motrin] 800 mg PO Q4-6H PRN 05/28/17 05/28/17 05/28/17 History Ranitidine HCl [Heartburn Relief] 75 mg PO QDAY PRN 05/28/17 05/28/17 Unknown History Active Meds: Active Medications Amlodipine Besylate (Norvasc) 10 mg PO QDAY [facility] Last Admin: 06/03/17 10:33 Dose: 10 mg Aspirin (Aspirin) 325 mg PO QDAY [facility] Last Admin: 06/03/17 10:14 Dose: 325 mg Atorvastatin Calcium (Lipitor) 40 mg PO QHS [facility] Last Admin: 06/03/17 22:00 Dose: 40 mg Famotidine (Pepcid) 20 mg PO BID [facility] Hydrochlorothiazide (Hctz) 12.5 mg PO QDAY [facility] Last Admin: 06/03/17 10:14 Dose: 12.5 mg Hydrophilic Ointment (Vaseline Lip Therapy) 1 applic TP Q2H PRN PRN Reason: Dry Lips Sodium Chloride (Nacl 0.9% 1000 Ml) 1,000 mls @ 100 mls/hr IV DIRECT [facility] Last Admin: 06/03/17 20:21 Dose: 100 mls/hr Meropenem (Merrem/Ns 500 Mg/50 Ml) 500 mg in 50 mls @ 50 mls/hr IV Q6H [facility] Last Admin: 06/04/17 04:20 Dose: 50 mls/hr Fentanyl 500 mcg/ Sodium (Chloride) 100 mls @ 8 mls/hr EPIDURAL DIRECT [facility] PRN Reason: Protocol Last Admin: 06/04/17 09:13 Dose: 8 mls/hr Magnesium Sulfate (Magnesium Sulfate 2gm/50ml) 2 gm in 50 mls @ 25 mls/hr IV ONCE ONE Stop: 06/04/17 10:59 Last Admin: 06/04/17 09:15 Dose: 25 mls/hr Metoprolol Tartrate (Lopressor) 5 mg IV Q6HR [facility] Last Admin: 06/04/17 00:05 Dose: Not Given Morphine Sulfate (Morphine) 4 mg IV Q4H PRN PRN Reason: Pain , Severe (7-10) Last Admin: 06/02/17 21:02 Dose: 4 mg Morphine Sulfate (Morphine) 2 mg IV Q4H PRN PRN Reason: Pain, Moderate (4-6) Multi-Ingred Cream/Lotion/Oil/Oint (Artificial Tears Ophth Oint) 1 applic OU Q4H PRN PRN Reason: Dry Eye(s) Ondansetron HCl (Zofran) 4 mg IV Q4H PRN PRN Reason: Nausea And Vomiting Last Admin: 06/03/17 19:06 Dose: 4 mg Oxycodone/Acetaminophen (Percocet 5/325) 1 tab PO Q6H PRN PRN Reason: Pain, Moderate (4-6) Last Admin: 05/30/17 15:15 Dose: 1 tab Sodium Chloride (Sodium Chloride Flush Syringe 10 Ml) 10 ml IV PRN PRN PRN Reason: LINE FLUSH Review of Systems All systems: negative Constitutional: no fever, no chills, no poor appetite Respiratory: no cough, no hemoptysis, no shortness of breath Gastrointestinal: no abdominal pain, no nausea, no vomiting, no diarrhea Genitourinary Male: no dysuria, no hematuria, no discharge Musculoskeletal: other (pain at amputation site) Integumentary: no rash, no pruritis Physical Examination - Constitutional Vitals: Vital Signs Temp Pulse Resp BP Pulse Ox 99.1 F 91 H 15 121/74 100 06/04/17 08:00 06/04/17 08:00 06/04/17 08:00 06/04/17 08:00 06/04/17 08:27 Temperature -Last 24 Hours Temperature 99.1 F Temperature 98.8 F Temperature 98.8 F Temperature 98.9 F Temperature 98.6 F Temperature 98.9 F General appearance: Present: no acute distress, well-nourished - Respiratory Respiratory effort: normal Respiratory: bilateral: CTA - Cardiovascular Rhythm: regular Heart Sounds: Present: S1 & S2 - Extremities Extremity abnormal: edema (clean based amputation site at right 1st/ 2nd toes, no other signs of infection) - Abdominal General gastrointestinal: Present: soft, non-tender, non-distended - Integumentary Integumentary: Present: clear. Absent: rash - Psychiatric Psychiatric: appropriate mood/affect - Neurologic Neurologic: moves all extremities Results - Labs CBC & Chem 7: 06/05/17 05:52 06/04/17 04:37 Labs: Abnormal lab results 06/04/17 06/04/17 Range/Units 04:37 04:37 WBC 13.1 H (4.5-11.0) K/mm3 Hgb 10.4 L (11.8-15.2) gm/dl Hct 32.5 L (35.5-45.6) % MCV 82 L (84-94) fl MCH 26 L (28-32) pg Lymph % (Auto) 11.8 L (13.4-35.0) % [place] # 0.9 H (0.0-0.8) K/mm3 Seg Neutrophils % 81.1 H (40.0-70.0) % Seg Neutrophils # 10.6 H (1.8-7.7) K/mm3 BUN 8 L (9-20) mg/dL Glucose 109 H (75-100) mg/dL Calcium 7.7 L (8.4-10.2) mg/dL Magnesium 1.60 L (1.7-2.3) mg/dL Microbiology 06/03/17 06:25 Tracheal Aspirate Sputum Culture - Final 05/28/17 13:40 Peripheral/Venous Blood Culture - Final NO GROWTH AFTER 5 DAYS 05/28/17 14:10 Peripheral/Venous Blood Culture - Final NO GROWTH AFTER 5 DAYS 05/28/17 18:19 Urine,Clean Catch Urine Culture - Final Escherichia Coli 05/29/17 23:50 Foot - Right Wound Culture - Final Escherichia Coli Escherichia Coli#2 - Imaging and Cardiology Chest x-ray: report reviewed (unremarkable AP chest) Assessment and Plan - Patient Problems (1) Wound, open, foot Current Visit: Yes Status: Acute Qualifiers: Encounter type: initial encounter Laterality: right Qualified Code(s): S91.301A - Unspecified open wound, right foot, initial encounter Plan to address problem: 1. 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 Wound culture was obtained prior to amputation. Stump is clean. 2. Recommend topical antibiotic (Gentamicin preferred) and continued local wound care. 3. Will discontinue Meropenem. 4. I will sign off and see patient on an as-needed basis. (2) Bacteriuria, asymptomatic Current Visit: Yes Status: Acute Plan to address problem: 1. Patient has had no urinary complaints. He has already received some doses of Meropenem. 2. No further treatment is recommended at this time. Will discontinue Meropenem. 3. Continue contact isolation. (3) Atherosclerosis of [place] arteries of the extremities with ulceration Current Visit: Yes Status: Acute
[2017-06-04] MEDS: HCTZ PO SCH (09:42)
[2017-06-04] MEDS: PEPCID PO SCH ×2 (09:42→22:11)
[2017-06-04] MEDS: ASPIRIN PO SCH (09:42)
[2017-06-04] MEDS: NORVASC PO SCH (09:42)
[2017-06-04] MEDS: ZOFRAN IV PRN (09:42)
[2017-06-04] MEDS ORDERED: GENTAMICIN SCH (10:00)
--- NOTE | 2017-06-04 12:33 | Progress Note ---
Assessment and Plan Assessment: PVD - s/p aorto-bifemoral bypass yesterday; s/p first and second right toe amputations in March 2017 with nonhealing wounds Acute respiratory failure - post-operatively; possible extubation today. Lactic acidosis - improved; wound cultures positive for E. Coli. Sinus tachycardia - improved; physiologic secondary to and pain. UTI HTN HLP Tobacco use - cessation encouraged. Plan: Currently stable cardiac status. D/c IV lopressor. Cont all other present cardiac management. Will see PRN. The patient has been seen in conjunction with Dr. Hess who agrees with the assessment and plan of care. Subjective Date of service: 06/04/17 Principal diagnosis: PVD Interval history: Pt seen in ICU, s/p aortobifemoral bypass, has been extubated. no complaints. ST on tele with BPs WNL. epidural in place. Objective Last Vital Signs Temp 99.1 F 06/04/17 08:00 Pulse 93 H 06/04/17 09:42 Resp 15 06/04/17 08:00 BP 125/75 06/04/17 09:42 Pulse Ox 100 06/04/17 08:27 - Physical Examination General: Appears Well HEENT: Positive: PERRL, Normocephaly, Mucus Membranes Moist Neck: Positive: neck supple, trachea midline Cardiac: Positive: Reg Rate and Rhythm, S1/S2 Lungs: Positive: clear to auscultation Neuro: Positive: Grossly Intact, Cranial Nerve 2-12 Intact Abdomen: Positive: Unremarkable, Soft, Active Bowel Sounds. Negative: Tender Skin: Positive: Clear, Other (right foot in bandage ). Negative: Rash Musculoskeletal: No Fluid Collection Extremities: Present: Other (No palpable pulses from hips down). Absent: edema - Labs and Meds CBC 06/04/17 Range/Units 04:37 WBC 13.1 H (4.5-11.0) K/mm3 RBC 3.95 (3.65-5.03) M/mm3 Hgb 10.4 L (11.8-15.2) gm/dl Hct 32.5 L (35.5-45.6) % Plt Count 144 (140-440) K/mm3 Lymph # 1.5 (1.2-5.4) K/mm3 [place] # 0.9 H (0.0-0.8) K/mm3 Eos # 0.0 (0.0-0.4) K/mm3 Baso # 0.0 (0.0-0.1) K/mm3 Comprehensive Metabolic Panel 06/04/17 Range/Units 04:37 Sodium 143 (137-145) mmol/L Potassium 3.7 (3.6-5.0) mmol/L Chloride 106.4 (98-107) mmol/L Carbon Dioxide 24 (22-30) mmol/L BUN 8 L (9-20) mg/dL Creatinine 0.8 (0.8-1.5) mg/dL Glucose 109 H (75-100) mg/dL Calcium 7.7 L (8.4-10.2) mg/dL - Imaging and Cardiology EKG: report reviewed, image reviewed Echo: report reviewed - Telemetry EKG Rhythm: Sinus Tachycardia - EKG Sinus rhythms and dysrhythmias: sinus rhythm Myocardial infarction: inferior [place] (old age inde
--- NOTE | 2017-06-04 12:34 | Progress Note ---
Subjective Date of service: 06/04/17 Principal diagnosis: S/P AORTOBIFEMORAL BYPASS Interval history: S/P EPIDURAL PLACEMENT FOR POST OP PAIN ON 06/02/2017. OKAY TO D/C EPIDURAL CATHETER. PLATELETS 144K. Objective - Constitutional Vitals: Vital Signs - 12hr 06/04/17 06/04/17 06/04/17 00:41 00:51 01:00 Temperature Pulse Rate 92 H 93 H Respiratory 19 18 22 Rate Blood Pressure 123/72 123/72 121/69 O2 Sat by Pulse 100 100 Oximetry 06/04/17 06/04/17 06/04/17 01:01 01:11 01:21 Temperature Pulse Rate 98 H 88 88 Respiratory 20 22 16 Rate Blood Pressure 121/69 121/69 121/69 O2 Sat by Pulse 100 100 100 Oximetry 06/04/17 06/04/17 06/04/17 01:31 01:41 01:51 Temperature Pulse Rate 86 90 93 H Respiratory 15 17 14 Rate Blood Pressure 121/69 121/69 121/69 O2 Sat by Pulse 100 100 100 Oximetry 06/04/17 06/04/17 06/04/17 02:00 02:11 02:21 Temperature Pulse Rate 95 H 88 102 H Respiratory 22 18 16 Rate Blood Pressure 123/74 123/74 123/74 O2 Sat by Pulse 100 100 100 Oximetry 06/04/17 06/04/17 06/04/17 02:31 02:41 02:51 Temperature Pulse Rate 89 89 82 Respiratory 14 14 16 Rate Blood Pressure 123/74 123/74 123/74 O2 Sat by Pulse 100 100 100 Oximetry 06/04/17 06/04/17 06/04/17 03:00 03:11 03:21 Temperature Pulse Rate 86 92 H 81 Respiratory 15 14 15 Rate Blood Pressure 117/68 117/68 117/68 O2 Sat by Pulse 100 100 100 Oximetry 06/04/17 06/04/17 06/04/17 03:31 03:41 03:51 Temperature Pulse Rate 87 89 89 Respiratory 17 18 16 Rate Blood Pressure 117/68 117/68 117/68 O2 Sat by Pulse 100 100 100 Oximetry 06/04/17 06/04/17 06/04/17 04:00 04:11 04:21 Temperature 98.8 F Pulse Rate 90 90 90 Respiratory 16 15 15 Rate Blood Pressure 121/73 121/73 121/73 O2 Sat by Pulse 100 100 100 Oximetry 06/04/17 06/04/17 06/04/17 04:31 04:41 04:51 Temperature Pulse Rate 84 92 H 87 Respiratory 19 20 15 Rate Blood Pressure 121/73 121/73 121/73 O2 Sat by Pulse 99 100 100 Oximetry 06/04/17 06/04/17 06/04/17 05:00 05:11 05:21 Temperature Pulse Rate 95 H 85 89 Respiratory 17 15 14 Rate Blood Pressure 114/67 114/67 114/67 O2 Sat by Pulse 100 100 100 Oximetry 06/04/17 06/04/17 06/04/17 05:31 05:41 05:51 Temperature Pulse Rate 86 89 88 Respiratory 14 16 15 Rate Blood Pressure 114/67 114/67 114/67 O2 Sat by Pulse 100 100 100 Oximetry 06/04/17 06/04/17 06/04/17 06:00 06:11 06:21 Temperature Pulse Rate 91 H 90 89 Respiratory 17 17 17 Rate Blood Pressure 114/68 114/68 114/68 O2 Sat by Pulse 100 100 100 Oximetry 06/04/17 06/04/17 06/04/17 06:31 06:41 06:51 Temperature Pulse Rate 85 88 87 Respiratory 16 14 17 Rate Blood Pressure 114/68 114/68 114/68 O2 Sat by Pulse 100 100 100 Oximetry 06/04/17 06/04/17 06/04/17 07:00 07:11 07:21 Temperature Pulse Rate 90 96 H 93 H Respiratory 16 17 16 Rate Blood Pressure 114/73 114/73 114/73 O2 Sat by Pulse 100 100 100 Oximetry 06/04/17 06/04/17 06/04/17 07:31 07:41 07:51 Temperature Pulse Rate 93 H 90 93 H Respiratory 16 15 15 Rate Blood Pressure 114/73 114/73 114/73 O2 Sat by Pulse 100 100 100 Oximetry 06/04/17 06/04/17 06/04/17 08:00 08:27 09:42 Temperature 99.1 F Pulse Rate 91 H 93 H Respiratory 15 Rate Blood Pressure 121/74 125/75 O2 Sat by Pulse 100 100 Oximetry 06/04/17 12:00 Temperature 98.7 F Pulse Rate Respiratory Rate Blood Pressure O2 Sat by Pulse Oximetry - Labs CBC & Chem 7: 06/04/17 04:37 06/04/17 04:37 Labs: Abnormal lab results 06/04/17 06/04/17 Range/Units 04:37 04:37 WBC 13.1 H (4.5-11.0) K/mm3 Hgb 10.4 L (11.8-15.2) gm/dl Hct 32.5 L (35.5-45.6) % MCV 82 L (84-94) fl MCH 26 L (28-32) pg Lymph % (Auto) 11.8 L (13.4-35.0) % [place] # 0.9 H (0.0-0.8) K/mm3 Seg Neutrophils % 81.1 H (40.0-70.0) % Seg Neutrophils # 10.6 H (1.8-7.7) K/mm3 BUN 8 L (9-20) mg/dL Glucose 109 H (75-100) mg/dL Calcium 7.7 L (8.4-10.2) mg/dL Magnesium 1.60 L (1.7-2.3) mg/dL
--- NOTE | 2017-06-04 13:13 | Progress Note ---
Assessment and Plan 47 y/o male status post vascular surgery, with admitted to ICU, intubated. 1. Needs to be transferred 2. Will speak with Anesthesia about removal of Epidural 3. Will sign off when out of unit. Subjective Date of service: 06/04/17 Principal diagnosis: S/P AORTOBIFEMORAL BYPASS Interval history: No acute events. Successful extubation on yesterday. Epidural still remains. Otherwise, no acute illness for ICU Objective Vital Signs - 12hr 06/04/17 06/04/17 06/04/17 01:21 01:31 01:41 Temperature Pulse Rate 88 86 90 Respiratory 16 15 17 Rate Blood Pressure 121/69 121/69 121/69 O2 Sat by Pulse 100 100 100 Oximetry 06/04/17 06/04/17 06/04/17 01:51 02:00 02:11 Temperature Pulse Rate 93 H 95 H 88 Respiratory 14 22 18 Rate Blood Pressure 121/69 123/74 123/74 O2 Sat by Pulse 100 100 100 Oximetry 06/04/17 06/04/17 06/04/17 02:21 02:31 02:41 Temperature Pulse Rate 102 H 89 89 Respiratory 16 14 14 Rate Blood Pressure 123/74 123/74 123/74 O2 Sat by Pulse 100 100 100 Oximetry 06/04/17 06/04/17 06/04/17 02:51 03:00 03:11 Temperature Pulse Rate 82 86 92 H Respiratory 16 15 14 Rate Blood Pressure 123/74 117/68 117/68 O2 Sat by Pulse 100 100 100 Oximetry 06/04/17 06/04/17 06/04/17 03:21 03:31 03:41 Temperature Pulse Rate 81 87 89 Respiratory 15 17 18 Rate Blood Pressure 117/68 117/68 117/68 O2 Sat by Pulse 100 100 100 Oximetry 06/04/17 06/04/17 06/04/17 03:51 04:00 04:11 Temperature 98.8 F Pulse Rate 89 90 90 Respiratory 16 16 15 Rate Blood Pressure 117/68 121/73 121/73 O2 Sat by Pulse 100 100 100 Oximetry 06/04/17 06/04/17 06/04/17 04:21 04:31 04:41 Temperature Pulse Rate 90 84 92 H Respiratory 15 19 20 Rate Blood Pressure 121/73 121/73 121/73 O2 Sat by Pulse 100 99 100 Oximetry 06/04/17 06/04/17 06/04/17 04:51 05:00 05:11 Temperature Pulse Rate 87 95 H 85 Respiratory 15 17 15 Rate Blood Pressure 121/73 114/67 114/67 O2 Sat by Pulse 100 100 100 Oximetry 06/04/17 06/04/17 06/04/17 05:21 05:31 05:41 Temperature Pulse Rate 89 86 89 Respiratory 14 14 16 Rate Blood Pressure 114/67 114/67 114/67 O2 Sat by Pulse 100 100 100 Oximetry 06/04/17 06/04/17 06/04/17 05:51 06:00 06:11 Temperature Pulse Rate 88 91 H 90 Respiratory 15 17 17 Rate Blood Pressure 114/67 114/68 114/68 O2 Sat by Pulse 100 100 100 Oximetry 06/04/17 06/04/17 06/04/17 06:21 06:31 06:41 Temperature Pulse Rate 89 85 88 Respiratory 17 16 14 Rate Blood Pressure 114/68 114/68 114/68 O2 Sat by Pulse 100 100 100 Oximetry 06/04/17 06/04/17 06/04/17 06:51 07:00 07:11 Temperature Pulse Rate 87 90 96 H Respiratory 17 16 17 Rate Blood Pressure 114/68 114/73 114/73 O2 Sat by Pulse 100 100 100 Oximetry 06/04/17 06/04/17 06/04/17 07:21 07:31 07:41 Temperature Pulse Rate 93 H 93 H 90 Respiratory 16 16 15 Rate Blood Pressure 114/73 114/73 114/73 O2 Sat by Pulse 100 100 100 Oximetry 06/04/17 06/04/17 06/04/17 07:51 08:00 08:27 Temperature 99.1 F Pulse Rate 93 H 91 H Respiratory 15 15 Rate Blood Pressure 114/73 121/74 O2 Sat by Pulse 100 100 100 Oximetry 06/04/17 06/04/17 09:42 12:00 Temperature 98.7 F Pulse Rate 93 H Respiratory Rate Blood Pressure 125/75 O2 Sat by Pulse Oximetry Constitutional: no acute distress, alert Eyes: non-icteric ENT: other (orally intubated) Neck: supple Effort: normal Ascultation: Bilateral: clear Percussion: Bilateral: not dull Cardiovascular: regular rate and rhythm Gastrointestinal: normoactive bowel sounds Integumentary: normal Neurologic: normal mental status, non-focal exam CBC and BMP: 06/04/17 04:37 06/04/17 04:37 ABG, PT/INR, D-dimer: ABG POC ABG pH 7.345 (7.35-7.45) L 06/03/17 05:58 POC ABG pCO2 39.1 (35-45) 06/03/17 05:58 POC ABG pO2 132 (80-105) H 06/03/17 05:58 POC ABG HCO3 21.4 06/03/17 05:58 POC ABG Total CO2 23 06/03/17 05:58 POC ABG O2 Sat 99 06/03/17 05:58 PT/INR, D-dimer PT 13.6 Sec. (12.2-14.9) 05/28/17 13:40 INR 1.05 (0.87-1.13) 05/28/17 13:40 Abnormal lab findings: Abnormal Labs 05/30/17 05/31/17 05/31/17 04:38 05:32 05:32 WBC RBC 5.09 H Hgb POC Hgb Hct POC Hct MCV 83 L MCH 27 L Lymph % (Auto) 38.7 H [place] # Seg Neutrophils % Seg Neuts % (Manual) Lymphocytes % (Manual) Seg Neutrophils # Seg Neutrophils # Man Lymphocytes # (Manual) POC ABG pH POC ABG pCO2 POC ABG pO2 POC Sodium POC Potassium POC Chloride Carbon Dioxide POC BUN BUN Glucose Calcium Magnesium Albumin 3.8 L Cholesterol 217 H LDL Cholesterol Direct 158 H 06/02/17 06/02/17 06/02/17 18:42 18:53 22:13 WBC 14.6 H RBC Hgb POC Hgb 8.8 L Hct POC Hct 26 L MCV 83 L MCH 26 L Lymph % (Auto) [place] # Seg Neutrophils % Seg Neuts % (Manual) 73.0 H Lymphocytes % (Manual) 2.0 L Seg Neutrophils # Seg Neutrophils # Man 10.7 H Lymphocytes # (Manual) 0.3 L POC ABG pH 7.189 L POC ABG pCO2 11.6 L POC ABG pO2 POC Sodium 154 H POC Potassium 2.3 L POC Chloride 122 H Carbon Dioxide POC BUN 3 L BUN Glucose Calcium Magnesium Albumin Cholesterol LDL Cholesterol Direct 06/02/17 06/03/17 06/03/17 22:13 04:00 05:58 WBC RBC Hgb POC Hgb Hct POC Hct MCV MCH Lymph % (Auto) [place] # Seg Neutrophils % Seg Neuts % (Manual) Lymphocytes % (Manual) Seg Neutrophils # Seg Neutrophils # Man Lymphocytes # (Manual) POC ABG pH 7.345 L POC ABG pCO2 POC ABG pO2 132 H POC Sodium POC Potassium POC Chloride Carbon Dioxide 18 L 21 L POC BUN BUN 8 L Glucose 178 H 135 H Calcium 6.8 L D 7.1 L Magnesium Albumin Cholesterol LDL Cholesterol Direct 06/04/17 06/04/17 04:37 04:37 WBC 13.1 H RBC Hgb 10.4 L POC Hgb Hct 32.5 L POC Hct MCV 82 L MCH 26 L Lymph % (Auto) 11.8 L [place] # 0.9 H Seg Neutrophils % 81.1 H Seg Neuts % (Manual) Lymphocytes % (Manual) Seg Neutrophils # 10.6 H Seg Neutrophils # Man Lymphocytes # (Manual) POC ABG pH POC ABG pCO2 POC ABG pO2 POC Sodium POC Potassium POC Chloride Carbon Dioxide POC BUN BUN 8 L Glucose 109 H Calcium 7.7 L Magnesium 1.60 L Albumin Cholesterol LDL Cholesterol Direct
--- NOTE | 2017-06-04 16:09 | Progress Note ---
Assessment and Plan Patient was evaluated early this morning. Once epidural is out: Recommend increasing activity/ambulation with assistance, removing [place], removing triple lumen catheter. We'll start daily suppository, until patient's first bowel movement. We'll start clear liquids once patient has return of bowel function. - Patient Problems (1) Atherosclerosis of [place] arteries of the extremities with ulceration Current Visit: Yes Status: Acute (2) Hypertension Current Visit: Yes Status: Acute Qualifiers: Hypertension type: H Subjective Date of service: 06/04/17 Principal diagnosis: S/P AORTOBIFEMORAL BYPASS Interval history: Patient was evaluated early this morning. Pt awake and alert. Minimal abdominal pain. He denies any nausea or vomiting at present. Patient denies flatus or bowel movement Objective - Constitutional Vitals: Vital Signs - 12hr 06/04/17 06/04/17 06/04/17 04:11 04:21 04:31 Temperature Pulse Rate 90 90 84 Respiratory 15 15 19 Rate Blood Pressure 121/73 121/73 121/73 O2 Sat by Pulse 100 100 99 Oximetry 06/04/17 06/04/17 06/04/17 04:41 04:51 05:00 Temperature Pulse Rate 92 H 87 95 H Respiratory 20 15 17 Rate Blood Pressure 121/73 121/73 114/67 O2 Sat by Pulse 100 100 100 Oximetry 06/04/17 06/04/17 06/04/17 05:11 05:21 05:31 Temperature Pulse Rate 85 89 86 Respiratory 15 14 14 Rate Blood Pressure 114/67 114/67 114/67 O2 Sat by Pulse 100 100 100 Oximetry 06/04/17 06/04/17 06/04/17 05:41 05:51 06:00 Temperature Pulse Rate 89 88 91 H Respiratory 16 15 17 Rate Blood Pressure 114/67 114/67 114/68 O2 Sat by Pulse 100 100 100 Oximetry 06/04/17 06/04/17 06/04/17 06:11 06:21 06:31 Temperature Pulse Rate 90 89 85 Respiratory 17 17 16 Rate Blood Pressure 114/68 114/68 114/68 O2 Sat by Pulse 100 100 100 Oximetry 06/04/17 06/04/17 06/04/17 06:41 06:51 07:00 Temperature Pulse Rate 88 87 90 Respiratory 14 17 16 Rate Blood Pressure 114/68 114/68 114/73 O2 Sat by Pulse 100 100 100 Oximetry 06/04/17 06/04/17 06/04/17 07:11 07:21 07:31 Temperature Pulse Rate 96 H 93 H 93 H Respiratory 17 16 16 Rate Blood Pressure 114/73 114/73 114/73 O2 Sat by Pulse 100 100 100 Oximetry 06/04/17 06/04/17 06/04/17 07:41 07:51 08:00 Temperature 99.1 F Pulse Rate 90 93 H 91 H Respiratory 15 15 15 Rate Blood Pressure 114/73 114/73 121/74 O2 Sat by Pulse 100 100 100 Oximetry 06/04/17 06/04/17 06/04/17 08:27 09:00 09:42 Temperature Pulse Rate 92 H 93 H Respiratory 17 Rate Blood Pressure 125/75 125/75 O2 Sat by Pulse 100 100 Oximetry 06/04/17 06/04/17 06/04/17 10:00 11:01 12:00 Temperature 98.7 F Pulse Rate 93 H 91 H 93 H Respiratory 18 16 17 Rate Blood Pressure 134/77 129/76 125/71 O2 Sat by Pulse 99 100 99 Oximetry 06/04/17 06/04/17 06/04/17 13:00 14:00 15:00 Temperature Pulse Rate 93 H 88 91 H Respiratory 14 15 16 Rate Blood Pressure 123/73 125/73 117/70 O2 Sat by Pulse 100 100 100 Oximetry General appearance: Present: no acute distress - EENT Eyes: EOM intact ENT: hearing intact - Neck Neck: supple - Respiratory Respiratory effort: normal Extremities: no ischemia, normal temperature - Gastrointestinal General gastrointestinal: Present: soft, distended (tympanic), other (bandages removed, abdominal incision intact chuckie in place, no erythema or drainage, bilateral groin incisions are intact without erythema or drainage) - Neurologic Neurologic: no focal deficits - Psychiatric Psychiatric: appropriate mood/affect, intact judgment & insight, cooperative - Labs CBC & Chem 7: 06/04/17 04:37 06/04/17 04:37 Labs: Abnormal lab results 06/04/17 06/04/17 Range/Units 04:37 04:37 WBC 13.1 H (4.5-11.0) K/mm3 Hgb 10.4 L (11.8-15.2) gm/dl Hct 32.5 L (35.5-45.6) % MCV 82 L (84-94) fl MCH 26 L (28-32) pg Lymph % (Auto) 11.8 L (13.4-35.0) % [place] # 0.9 H (0.0-0.8) K/mm3 Seg Neutrophils % 81.1 H (40.0-70.0) % Seg Neutrophils # 10.6 H (1.8-7.7) K/mm3 BUN 8 L (9-20) mg/dL Glucose 109 H (75-100) mg/dL Calcium 7.7 L (8.4-10.2) mg/dL Magnesium 1.60 L (1.7-2.3) mg/dL
[2017-06-04] MEDS: ANTIBIOTIC OINT TP SCH (16:36)
[2017-06-04] MEDS: DULCOLAX PR SCH (17:03)
[2017-06-05 06:48] LABS: Basophils % (Auto) 0.4 % (0.0-1.8); Eosinophils % (Auto) 0.9 % (0.0-4.3); Hematocrit 32.1 % (35.5-45.6); Hemoglobin 10.5 gm/dl (11.8-15.2); Mean Corpuscular HGB Conc 33 % (32-34); Mean Corpuscular Hemoglobin 26 pg (28-32); Mean Corpuscular Volume 81 fl (84-94); Platelet Count 162 K/mm3 (140-440); Red Blood Count 3.97 M/mm3 (3.65-5.03); Red Cell Distribution Width 14.3 % (13.2-15.2)
--- NOTE | 2017-06-05 08:10 | XRay Report ---
AP CHEST: HISTORY: Followup respiratory failure Right IJ venous catheter has been removed since yesterday's exam. No pneumothorax. AP view of the chest demonstrates a normal mediastinal and cardiac contour with clear lungs and normal bony and soft tissue structures. IMPRESSION: Unremarkable AP chest.
[2017-06-05] MEDS: ANTIBIOTIC OINT TP SCH (10:00)
[2017-06-05] MEDS: DULCOLAX PR SCH (10:16)
--- NOTE | 2017-06-05 11:34 | Progress Note ---
Assessment and Plan Pt passing flatus, no bm yet. -N/V. Start clear liquids, advance to regular diet if he tolerates liquids. Educated the pt what to do if he developes nausea. Pt needs to be OOB at least 3 times daily and ambulate with assistance. This will help stimulate return of bowel fxn. Pt denies much pain, and otherwise appears to be doing well. - Patient Problems (1) Atherosclerosis of [place] arteries of the extremities with ulceration Current Visit: Yes Status: Acute (2) Hypertension Current Visit: Yes Status: Acute Qualifiers: Hypertension type: H Subjective Date of service: 06/05/17 Principal diagnosis: S/P AORTOBIFEMORAL BYPASS Interval history: Pt is doing well post-op. Objective - Constitutional Vitals: Vital Signs - 12hr 06/05/17 08:15 Temperature 98.1 F Pulse Rate 91 H Respiratory 18 Rate Blood Pressure 123/74 O2 Sat by Pulse 96 Oximetry General appearance: Present: no acute distress - EENT Eyes: EOM intact ENT: hearing intact - Respiratory Respiratory effort: normal Extremities: no ischemia, normal temperature Extremity abnormal: ulceration (distal foot wound bandaged) - Gastrointestinal General gastrointestinal: Present: soft, non-tender, other (Incisions intact without erythema or drainage) - Neurologic Neurologic: no focal deficits - Psychiatric Psychiatric: appropriate mood/affect, intact judgment & insight, cooperative - Labs CBC & Chem 7: 06/05/17 05:52 06/04/17 04:37 Labs: Abnormal lab results 06/05/17 Range/Units 05:52 WBC 12.0 H (4.5-11.0) K/mm3 Hgb 10.5 L (11.8-15.2) gm/dl Hct 32.1 L (35.5-45.6) % MCV 81 L (84-94) fl MCH 26 L (28-32) pg [place] % (Auto) 7.4 H (0.0-7.3) % [place] # 0.9 H (0.0-0.8) K/mm3 Seg Neutrophils % 73.6 H (40.0-70.0) % Seg Neutrophils # 8.8 H (1.8-7.7) K/mm3
--- NOTE | 2017-06-05 13:19 | Progress Note ---
Assessment and Plan 47 y/o male status post vascular surgery, with admitted to ICU, intubated. 1. Pulm status stable. Will sign off Subjective Date of service: 06/05/17 Principal diagnosis: S/P AORTOBIFEMORAL BYPASS Interval history: Stable, no breathing issues Objective Vital Signs - 12hr 06/05/17 08:15 Temperature 98.1 F Pulse Rate 91 H Respiratory 18 Rate Blood Pressure 123/74 O2 Sat by Pulse 96 Oximetry Constitutional: no acute distress, alert Eyes: non-icteric Neck: supple Effort: normal Ascultation: Bilateral: clear Percussion: Bilateral: not dull Cardiovascular: regular rate and rhythm Gastrointestinal: normoactive bowel sounds Integumentary: normal Neurologic: normal mental status, non-focal exam CBC and BMP: 06/05/17 05:52 06/04/17 04:37 ABG, PT/INR, D-dimer: ABG POC ABG pH 7.345 (7.35-7.45) L 06/03/17 05:58 POC ABG pCO2 39.1 (35-45) 06/03/17 05:58 POC ABG pO2 132 (80-105) H 06/03/17 05:58 POC ABG HCO3 21.4 06/03/17 05:58 POC ABG Total CO2 23 06/03/17 05:58 POC ABG O2 Sat 99 06/03/17 05:58 PT/INR, D-dimer PT 13.6 Sec. (12.2-14.9) 05/28/17 13:40 INR 1.05 (0.87-1.13) 05/28/17 13:40 Abnormal lab findings: Abnormal Labs 05/30/17 05/31/17 05/31/17 04:38 05:32 05:32 WBC RBC 5.09 H Hgb POC Hgb Hct POC Hct MCV 83 L MCH 27 L Lymph % (Auto) 38.7 H [place] % (Auto) [place] # Seg Neutrophils % Seg Neuts % (Manual) Lymphocytes % (Manual) Seg Neutrophils # Seg Neutrophils # Man Lymphocytes # (Manual) POC ABG pH POC ABG pCO2 POC ABG pO2 POC Sodium POC Potassium POC Chloride Carbon Dioxide POC BUN BUN Glucose Calcium Magnesium Albumin 3.8 L Cholesterol 217 H LDL Cholesterol Direct 158 H 06/02/17 06/02/17 06/02/17 18:42 18:53 22:13 WBC 14.6 H RBC Hgb POC Hgb 8.8 L Hct POC Hct 26 L MCV 83 L MCH 26 L Lymph % (Auto) [place] % (Auto) [place] # Seg Neutrophils % Seg Neuts % (Manual) 73.0 H Lymphocytes % (Manual) 2.0 L Seg Neutrophils # Seg Neutrophils # Man 10.7 H Lymphocytes # (Manual) 0.3 L POC ABG pH 7.189 L POC ABG pCO2 11.6 L POC ABG pO2 POC Sodium 154 H POC Potassium 2.3 L POC Chloride 122 H Carbon Dioxide POC BUN 3 L BUN Glucose Calcium Magnesium Albumin Cholesterol LDL Cholesterol Direct 06/02/17 06/03/17 06/03/17 22:13 04:00 05:58 WBC RBC Hgb POC Hgb Hct POC Hct MCV MCH Lymph % (Auto) [place] % (Auto) [place] # Seg Neutrophils % Seg Neuts % (Manual) Lymphocytes % (Manual) Seg Neutrophils # Seg Neutrophils # Man Lymphocytes # (Manual) POC ABG pH 7.345 L POC ABG pCO2 POC ABG pO2 132 H POC Sodium POC Potassium POC Chloride Carbon Dioxide 18 L 21 L POC BUN BUN 8 L Glucose 178 H 135 H Calcium 6.8 L D 7.1 L Magnesium Albumin Cholesterol LDL Cholesterol Direct 06/04/17 06/04/17 06/05/17 04:37 04:37 05:52 WBC 13.1 H 12.0 H RBC Hgb 10.4 L 10.5 L POC Hgb Hct 32.5 L 32.1 L POC Hct MCV 82 L 81 L MCH 26 L 26 L Lymph % (Auto) 11.8 L [place] % (Auto) 7.4 H [place] # 0.9 H 0.9 H Seg Neutrophils % 81.1 H 73.6 H Seg Neuts % (Manual) Lymphocytes % (Manual) Seg Neutrophils # 10.6 H 8.8 H Seg Neutrophils # Man Lymphocytes # (Manual) POC ABG pH POC ABG pCO2 POC ABG pO2 POC Sodium POC Potassium POC Chloride Carbon Dioxide POC BUN BUN 8 L Glucose 109 H Calcium 7.7 L Magnesium 1.60 L Albumin Cholesterol LDL Cholesterol Direct
[2017-06-05] MEDS: HCTZ PO SCH (13:28)
[2017-06-05] MEDS: ASPIRIN PO SCH (13:28)
[2017-06-05] MEDS: NORVASC PO SCH (13:29)
[2017-06-05] MEDS: PEPCID PO SCH ×2 (13:29→22:35)
[2017-06-05] MEDS: PLAVIX PO SCH (13:33)
--- NOTE | 2017-06-05 14:40 | Progress Note ---
Assessment and Plan Assessment and plan: --Peripheral vascular disease status postAorto fem bypass surgery , vascular following --S/P extubation --Sepsis Secondary to urinary tract infection/Escherichia coli ESBL ID evaluation noted and appreciated, DC'd all antibiotics --Gram-negative wound infection, status post surgery, off antibiotics per ID --Nonhealing foot ulcer continue wound care , off antibiotics --Hypertension; moderate control. Continue current antihypertensives and when necessary medications --Ongoing tobacco use; smoking cessation counseling done patient strongly advised to quit tobacco, his nicotine patch --Dyslipidemia; lipid lowering medications --DVT prophylaxis per vascular Advance the diet as tolerated, ambulate as tolerated, physical therapy occupational therapy Plan of care discussed with the patient as well as his nurse DC planning. 1-2 days if stable History Interval history: Patient seen and evaluated in his room this morning medical records reviewed No new events per the nursing staff, had flatulence On clear liquid diet, alert awake oriented 3 not in acute distress Hospitalist Physical - Constitutional Vitals: Temp Pulse Resp BP Pulse Ox 98.1 F 91 H 18 123/74 98 06/05/17 08:15 06/05/17 08:15 06/05/17 08:15 06/05/17 08:15 06/05/17 10:00 General appearance: Present: no acute distress, well-nourished - EENT Eyes: Present: PERRL, EOM intact - Neck Neck: Present: supple, normal ROM - Respiratory Respiratory effort: normal Respiratory: bilateral: diminished, negative: rales, rhonchi, wheezing - Cardiovascular Rhythm: regular Heart Sounds: Present: S1 & S2 - Extremities Extremities: no ischemia Extremity abnormal: edema - Abdominal General gastrointestinal: soft, non-tender, non-distended, normal bowel sounds - Integumentary Integumentary: Present: clear, warm - Psychiatric Psychiatric: appropriate mood/affect, cooperative - Neurologic Neurologic: CNII-XII intact, moves all extremities Results - Labs CBC & Chem 7: 06/05/17 05:52 06/04/17 04:37 Labs: Laboratory Last Values WBC 12.0 K/mm3 (4.5-11.0) H 06/05/17 05:52 RBC 3.97 M/mm3 (3.65-5.03) 06/05/17 05:52 Hgb 10.5 gm/dl (11.8-15.2) L 06/05/17 05:52 POC Hgb 8.8 (12-17) L 06/02/17 18:53 Hct 32.1 % (35.5-45.6) L 06/05/17 05:52 POC Hct 26 (38-51) L 06/02/17 18:53 MCV 81 fl (84-94) L 06/05/17 05:52 MCH 26 pg (28-32) L 06/05/17 05:52 MCHC 33 % (32-34) 06/05/17 05:52 RDW 14.3 % (13.2-15.2) 06/05/17 05:52 Plt Count 162 K/mm3 (140-440) 06/05/17 05:52 Lymph % (Auto) 17.7 % (13.4-35.0) 06/05/17 05:52 [place] % (Auto) 7.4 % (0.0-7.3) H 06/05/17 05:52 Eos % (Auto) 0.9 % (0.0-4.3) 06/05/17 05:52 Baso % (Auto) 0.4 % (0.0-1.8) 06/05/17 05:52 Lymph # 2.1 K/mm3 (1.2-5.4) 06/05/17 05:52 [place] # 0.9 K/mm3 (0.0-0.8) H 06/05/17 05:52 Eos # 0.1 K/mm3 (0.0-0.4) 06/05/17 05:52 Baso # 0.0 K/mm3 (0.0-0.1) 06/05/17 05:52 Add Manual Diff Complete 06/02/17 22:13 Total Counted 100 06/02/17 22:13 Seg Neutrophils % 73.6 % (40.0-70.0) H 06/05/17 05:52 Seg Neuts % (Manual) 73.0 % (40.0-70.0) H 06/02/17 22:13 Band Neutrophils % 21.0 % 06/02/17 22:13 Lymphocytes % (Manual) 2.0 % (13.4-35.0) L 06/02/17 22:13 Reactive Lymphs % (Man) 0 % 06/02/17 22:13 Monocytes % (Manual) 4.0 % (0.0-7.3) 06/02/17 22:13 Eosinophils % (Manual) 0 % (0.0-4.3) 06/02/17 22:13 Basophils % (Manual) 0 % (0.0-1.8) 06/02/17 22:13 Metamyelocytes % 0 % 06/02/17 22:13 Myelocytes % 0 % 06/02/17 22:13 Promyelocytes % 0 % 06/02/17 22:13 Blast Cells % 0 % 06/02/17 22:13 Nucleated RBC % Not Reportable 06/02/17 22:13 Seg Neutrophils # 8.8 K/mm3 (1.8-7.7) H 06/05/17 05:52 Seg Neutrophils # Man 10.7 K/mm3 (1.8-7.7) H 06/02/17 22:13 Band Neutrophils # 3.1 K/mm3 06/02/17 22:13 Lymphocytes # (Manual) 0.3 K/mm3 (1.2-5.4) L 06/02/17 22:13 Abs React Lymphs (Man) 0.0 K/mm3 06/02/17 22:13 Monocytes # (Manual) 0.6 K/mm3 (0.0-0.8) 06/02/17 22:13 Eosinophils # (Manual) 0.0 K/mm3 (0.0-0.4) 06/02/17 22:13 Basophils # (Manual) 0.0 K/mm3 (0.0-0.1) 06/02/17 22:13 Metamyelocytes # 0.0 K/mm3 06/02/17 22:13 Myelocytes # 0.0 K/mm3 06/02/17 22:13 Promyelocytes # 0.0 K/mm3 06/02/17 22:13 Blast Cells # 0.0 K/mm3 06/02/17 22:13 WBC Morphology Not Reportable 06/02/17 22:13 Hypersegmented Neuts Not Reportable 06/02/17 22:13 Hyposegmented Neuts Not Reportable 06/02/17 22:13 Hypogranular Neuts Not Reportable 06/02/17 22:13 Smudge Cells Not Reportable 06/02/17 22:13 Toxic Granulation Not Reportable 06/02/17 22:13 Toxic Vacuolation Not Reportable 06/02/17 22:13 Dohle Bodies Not Reportable 06/02/17 22:13 Pel[place]-Huet Anomaly Not Reportable 06/02/17 22:13 Yadiel Rods Not Reportable 06/02/17 22:13 Platelet Estimate Appears normal 06/02/17 22:13 Clumped Platelets 1+ 06/02/17 22:13 Plt Clumps, EDTA Not Reportable 06/02/17 22:13 Large Platelets Not Reportable 06/02/17 22:13 Giant Platelets Not Reportable 06/02/17 22:13 Platelet Satelliting Not Reportable 06/02/17 22:13 Plt Morphology Comment Not Reportable 06/02/17 22:13 RBC Morphology Not Reportable 06/02/17 22:13 Dimorphic RBCs Not Reportable 06/02/17 22:13 Polychromasia Not Reportable 06/02/17 22:13 Hypochromasia Not Reportable 06/02/17 22:13 Poikilocytosis Not Reportable 06/02/17 22:13 Anisocytosis 1+ 06/02/17 22:13 Microcytosis Not Reportable 06/02/17 22:13 Macrocytosis Not Reportable 06/02/17 22:13 Spherocytes Not Reportable 06/02/17 22:13 Pappenheimer Bodies Not Reportable 06/02/17 22:13 Sickle Cells Not Reportable 06/02/17 22:13 Target Cells Not Reportable 06/02/17 22:13 Tear Drop Cells Not Reportable 06/02/17 22:13 Ovalocytes Not Reportable 06/02/17 22:13 Helmet Cells Not Reportable 06/02/17 22:13 [place] Bodies Not Reportable 06/02/17 22:13 [place] Rings Not Reportable 06/02/17 22:13 [place] Cells Not Reportable 06/02/17 22:13 Bite Cells Not Reportable 06/02/17 22:13 Crenated Cell Not Reportable 06/02/17 22:13 Elliptocytes 1+ 06/02/17 22:13 Acanthocytes (Spur) Not Reportable 06/02/17 22:13 Rouleaux Not Reportable 06/02/17 22:13 Hemoglobin C Crystals Not Reportable 06/02/17 22:13 Schistocytes Not Reportable 06/02/17 22:13 Malaria parasites Not Reportable 06/02/17 22:13 Roni Bodies Not Reportable 06/02/17 22:13 Hem Pathologist Commnt No 06/02/17 22:13 PT 13.6 Sec. (12.2-14.9) 05/28/17 13:40 INR 1.05 (0.87-1.13) 05/28/17 13:40 APTT 26.7 Sec. (24.2-36.6) 05/28/17 16:30 POC ABG pH 7.345 (7.35-7.45) L 06/03/17 05:58 POC ABG pCO2 39.1 (35-45) 06/03/17 05:58 POC ABG pO2 132 (80-105) H 06/03/17 05:58 POC ABG HCO3 21.4 06/03/17 05:58 POC ABG Total CO2 23 06/03/17 05:58 POC ABG O2 Sat 99 06/03/17 05:58 POC ABG Base Excess -4 06/03/17 05:58 VBG pH 7.341 (7.320-7.420) 05/28/17 13:40 POC Sodium 154 mmol/L (138-146) H 06/02/17 18:53 POC Potassium 2.3 (3.5-4.9) L 06/02/17 18:53 POC Chloride 122 (98-109) H 06/02/17 18:53 FiO2 35 % 06/03/17 05:58 Sodium 143 mmol/L (137-145) 06/04/17 04:37 Potassium 3.7 mmol/L (3.6-5.0) 06/04/17 04:37 Chloride 106.4 mmol/L (98-107) 06/04/17 04:37 Carbon Dioxide 24 mmol/L (22-30) 06/04/17 04:37 Anion Gap 16 mmol/L 06/04/17 04:37 POC BUN 3 mg/dl (8-26) L 06/02/17 18:53 BUN 8 mg/dL (9-20) L 06/04/17 04:37 Creatinine 0.8 mg/dL (0.8-1.5) 06/04/17 04:37 Estimated GFR > 60 ml/min 06/04/17 04:37 BUN/Creatinine Ratio 10.00 % 06/04/17 04:37 Glucose 109 mg/dL (75-100) H 06/04/17 04:37 POC Glucose 105 (70-105) 06/02/17 18:53 Lactic Acid 1.30 mmol/L (0.7-2.0) 05/28/17 18:27 Calcium 7.7 mg/dL (8.4-10.2) L 06/04/17 04:37 Magnesium 2.10 mg/dL (1.7-2.3) 06/05/17 05:52 Total Bilirubin 0.70 mg/dL (0.1-1.2) 05/31/17 05:32 AST 13 units/L (5-40) 05/31/17 05:32 ALT 14 units/L (7-56) 05/31/17 05:32 Alkaline Phosphatase 79 units/L (35-129) 05/31/17 05:32 Total Protein 7.1 g/dL (6.3-8.2) 05/31/17 05:32 Albumin 3.8 g/dL (3.9-5) L 05/31/17 05:32 Albumin/Globulin Ratio 1.2 % 05/31/17 05:32 Triglycerides 60 mg/dL (2-149) 05/30/17 04:38 Cholesterol 217 mg/dL (50-199) H 05/30/17 04:38 LDL Cholesterol Direct 158 mg/dL (50-130) H 05/30/17 04:38 HDL Cholesterol 47 mg/dL (40-59) 05/30/17 04:38 Cholesterol/HDL Ratio 4.61 % 05/30/17 04:38 Urine Color Straw (Yellow) 05/28/17 18:19 Urine Turbidity Clear (Clear) 05/28/17 18:19 Urine pH 7.0 (5.0-7.0) 05/28/17 18:19 Ur Specific [place] 1.005 (1.003-1.030) 05/28/17 18:19 Urine Protein <15 mg/dl mg/dL (Negative) 05/28/17 18:19 Urine Glucose (UA) Neg mg/dL (Negative) 05/28/17 18:19 Urine Ketones Neg mg/dL (Negative) 05/28/17 18:19 Urine Blood Neg (Negative) 05/28/17 18:19 Urine Nitrite Pos (Negative) 05/28/17 18:19 Urine Bilirubin Neg (Negative) 05/28/17 18:19 Urine Urobilinogen < 2.0 mg/dL (<2.0) 05/28/17 18:19 Ur Leukocyte Esterase Mod (Negative) 05/28/17 18:19 Urine WBC (Auto) 1.0 /HPF (0.0-6.0) 05/28/17 18:19 Urine RBC (Auto) 1.0 /HPF (0.0-6.0) 05/28/17 18:19 U Epithel Cells (Auto) 1.0 /HPF (0-13.0) 05/28/17 18:19 Urine Bacteria (Auto) 3+ /HPF (Negative) 05/28/17 18:19 Urine Mucus Few /HPF 05/28/17 18:19 Vancomycin Trough 14.4 ug/mL (5.0-20.0) 06/01/17 06:12 Blood Type B NEGATIVE 06/02/17 04:21 Antibody Screen TNR 06/02/17 04:21 CHRISTIANO Antibody Screen Negative 06/02/17 04:21
[2017-06-06 05:38] LABS: Basophils % (Auto) 0.3 % (0.0-1.8); Eosinophils % (Auto) 1.6 % (0.0-4.3); Hematocrit 32.3 % (35.5-45.6); Hemoglobin 10.8 gm/dl (11.8-15.2); Mean Corpuscular HGB Conc 33 % (32-34); Mean Corpuscular Hemoglobin 27 pg (28-32); Mean Corpuscular Volume 81 fl (84-94); Platelet Count 198 K/mm3 (140-440); Red Blood Count 3.99 M/mm3 (3.65-5.03); White Blood Count 9.2 K/mm3 (4.5-11.0)
[2017-06-06 06:02] LABS: Anion Gap 17 mmol/L; BUN/Creatinine Ratio 14.28; Blood Urea Nitrogen 10 mg/dL (9-20); Calcium 8.8 mg/dL (8.4-10.2); Carbon Dioxide 27 mmol/L (22-30); Chloride 96.9 mmol/L (98-107); Glucose 104 mg/dL (75-100); Sodium 138 mmol/L (137-145)
[2017-06-06 06:32] LABS: Potassium 2.8 mmol/L (3.6-5.0)
[2017-06-06] MEDS ORDERED: K-DUR PO ONE ×2 (07:00→13:00)
--- NOTE | 2017-06-06 09:32 | Progress Note ---
Assessment and Plan Will advance diet today, the patient is able to tolerate, the patient will be discharged home tomorrow. Subjective Date of service: 06/06/17 Principal diagnosis: S/P AORTOBIFEMORAL BYPASS Interval history: Patient doing well postoperatively. He was out of bed multiple times yesterday. Tolerating clear liquid diet without nausea. He had 2 bowel movements yesterday evening. Patient is able to ambulate with assistance to the bathroom. No complaints of abdominal or incisional pain. Objective - Constitutional Vitals: Vital Signs - 12hr 06/05/17 06/05/17 06/06/17 22:00 23:00 08:00 Temperature 98.7 F 98.4 F Pulse Rate 91 H 80 Respiratory 20 20 Rate Respiratory 15 Rate [Right Foot] Blood Pressure 129/80 116/69 O2 Sat by Pulse 96 97 Oximetry General appearance: Present: no acute distress - EENT Eyes: PERRL ENT: hearing intact - Neck Neck: supple, normal ROM - Respiratory Respiratory effort: normal - Breasts Breasts: deferred Extremities: Full ROM - Gastrointestinal General gastrointestinal: Present: soft, non-tender - Genitourinary Male genitourinary: deferred - Neurologic Neurologic: CNII-XII intact, no focal deficits - Psychiatric Psychiatric: appropriate mood/affect, cooperative - Labs CBC & Chem 7: 06/06/17 04:34 06/06/17 04:34 Labs: Abnormal lab results 06/06/17 06/06/17 Range/Units 04:34 04:34 Hgb 10.8 L (11.8-15.2) gm/dl Hct 32.3 L (35.5-45.6) % MCV 81 L (84-94) fl MCH 27 L (28-32) pg Potassium 2.8 L* D (3.6-5.0) mmol/L Chloride 96.9 L (98-107) mmol/L Creatinine 0.7 L (0.8-1.5) mg/dL Glucose 104 H (75-100) mg/dL
[2017-06-06] MEDS: PLAVIX PO SCH (10:04)
[2017-06-06] MEDS: PEPCID PO SCH ×2 (10:04→21:57)
[2017-06-06] MEDS: HCTZ PO SCH (10:04)
[2017-06-06] MEDS: NORVASC PO SCH (10:04)
[2017-06-06] MEDS: DULCOLAX PR SCH (10:05)
[2017-06-06] MEDS: ANTIBIOTIC OINT TP SCH (10:06)
--- NOTE | 2017-06-06 12:32 | Progress Note ---
Assessment and Plan Assessment and plan: -- hypokalemia; replenishment protocol and monitor levels Will give 40 mEq of by mouth KCl every 4 hours 2, check potassium levels in the morning --Peripheral vascular disease status postAorto fem bypass surgery , continue postop care Ambulate as tolerated --Sepsis Secondary to urinary tract infection/Escherichia coli ESBL ID evaluation noted and appreciated, DC'd all antibiotics --Gram-negative wound infection, status post surgery, off antibiotics per ID --Hypertension; moderate control. Continue current antihypertensives and when necessary medications --Ongoing tobacco use; smoking cessation counseling done patient strongly advised to quit tobacco, nicotine patch as needed --Dyslipidemia; lipid lowering medications --DVT prophylaxis SCDs Advance the diet as tolerated, ambulate as tolerated, physical therapy occupational therapy DC planning. 1-2 days if stable History Interval history: Patient has no new complaints Vital signs reviewed, no new events reported by the nursing staff Hospitalist Physical - Constitutional Vitals: Temp Pulse Resp BP Pulse Ox 98.4 F 80 20 116/69 97 06/06/17 08:00 06/06/17 08:00 06/06/17 08:00 06/06/17 10:04 06/06/17 08:00 General appearance: Present: no acute distress, well-nourished - EENT Eyes: Present: PERRL, EOM intact - Neck Neck: Present: supple, normal ROM - Respiratory Respiratory effort: normal Respiratory: bilateral: diminished, negative: rales, rhonchi, wheezing - Cardiovascular Rhythm: regular Heart Sounds: Present: S1 & S2 - Extremities Extremities: no ischemia, No edema - Abdominal General gastrointestinal: soft, non-tender, non-distended - Integumentary Integumentary: Present: clear, warm - Psychiatric Psychiatric: appropriate mood/affect, cooperative - Neurologic Neurologic: CNII-XII intact, moves all extremities Results - Labs CBC & Chem 7: 06/06/17 04:34 06/06/17 04:34 Labs: Laboratory Last Values WBC 9.2 K/mm3 (4.5-11.0) 06/06/17 04:34 RBC 3.99 M/mm3 (3.65-5.03) 06/06/17 04:34 Hgb 10.8 gm/dl (11.8-15.2) L 06/06/17 04:34 POC Hgb 8.8 (12-17) L 06/02/17 18:53 Hct 32.3 % (35.5-45.6) L 06/06/17 04:34 POC Hct 26 (38-51) L 06/02/17 18:53 MCV 81 fl (84-94) L 06/06/17 04:34 MCH 27 pg (28-32) L 06/06/17 04:34 MCHC 33 % (32-34) 06/06/17 04:34 RDW 14.0 % (13.2-15.2) 06/06/17 04:34 Plt Count 198 K/mm3 (140-440) 06/06/17 04:34 Lymph % (Auto) 20.8 % (13.4-35.0) 06/06/17 04:34 Antelope % (Auto) 7.3 % (0.0-7.3) 06/06/17 04:34 Eos % (Auto) 1.6 % (0.0-4.3) 06/06/17 04:34 Baso % (Auto) 0.3 % (0.0-1.8) 06/06/17 04:34 Lymph # 1.9 K/mm3 (1.2-5.4) 06/06/17 04:34 Antelope # 0.7 K/mm3 (0.0-0.8) 06/06/17 04:34 Eos # 0.1 K/mm3 (0.0-0.4) 06/06/17 04:34 Baso # 0.0 K/mm3 (0.0-0.1) 06/06/17 04:34 Add Manual Diff Complete 06/02/17 22:13 Total Counted 100 06/02/17 22:13 Seg Neutrophils % 70.0 % (40.0-70.0) 06/06/17 04:34 Seg Neuts % (Manual) 73.0 % (40.0-70.0) H 06/02/17 22:13 Band Neutrophils % 21.0 % 06/02/17 22:13 Lymphocytes % (Manual) 2.0 % (13.4-35.0) L 06/02/17 22:13 Reactive Lymphs % (Man) 0 % 06/02/17 22:13 Monocytes % (Manual) 4.0 % (0.0-7.3) 06/02/17 22:13 Eosinophils % (Manual) 0 % (0.0-4.3) 06/02/17 22:13 Basophils % (Manual) 0 % (0.0-1.8) 06/02/17 22:13 Metamyelocytes % 0 % 06/02/17 22:13 Myelocytes % 0 % 06/02/17 22:13 Promyelocytes % 0 % 06/02/17 22:13 Blast Cells % 0 % 06/02/17 22:13 Nucleated RBC % Not Reportable 06/02/17 22:13 Seg Neutrophils # 6.5 K/mm3 (1.8-7.7) 06/06/17 04:34 Seg Neutrophils # Man 10.7 K/mm3 (1.8-7.7) H 06/02/17 22:13 Band Neutrophils # 3.1 K/mm3 06/02/17 22:13 Lymphocytes # (Manual) 0.3 K/mm3 (1.2-5.4) L 06/02/17 22:13 Abs React Lymphs (Man) 0.0 K/mm3 06/02/17 22:13 Monocytes # (Manual) 0.6 K/mm3 (0.0-0.8) 06/02/17 22:13 Eosinophils # (Manual) 0.0 K/mm3 (0.0-0.4) 06/02/17 22:13 Basophils # (Manual) 0.0 K/mm3 (0.0-0.1) 06/02/17 22:13 Metamyelocytes # 0.0 K/mm3 06/02/17 22:13 Myelocytes # 0.0 K/mm3 06/02/17 22:13 Promyelocytes # 0.0 K/mm3 06/02/17 22:13 Blast Cells # 0.0 K/mm3 06/02/17 22:13 WBC Morphology Not Reportable 06/02/17 22:13 Hypersegmented Neuts Not Reportable 06/02/17 22:13 Hyposegmented Neuts Not Reportable 06/02/17 22:13 Hypogranular Neuts Not Reportable 06/02/17 22:13 Smudge Cells Not Reportable 06/02/17 22:13 Toxic Granulation Not Reportable 06/02/17 22:13 Toxic Vacuolation Not Reportable 06/02/17 22:13 Dohle Bodies Not Reportable 06/02/17 22:13 Pelger-Huet Anomaly Not Reportable 06/02/17 22:13 Yadiel Rods Not Reportable 06/02/17 22:13 Platelet Estimate Appears normal 06/02/17 22:13 Clumped Platelets 1+ 06/02/17 22:13 Plt Clumps, EDTA Not Reportable 06/02/17 22:13 Large Platelets Not Reportable 06/02/17 22:13 Giant Platelets Not Reportable 06/02/17 22:13 Platelet Satelliting Not Reportable 06/02/17 22:13 Plt Morphology Comment Not Reportable 06/02/17 22:13 RBC Morphology Not Reportable 06/02/17 22:13 Dimorphic RBCs Not Reportable 06/02/17 22:13 Polychromasia Not Reportable 06/02/17 22:13 Hypochromasia Not Reportable 06/02/17 22:13 Poikilocytosis Not Reportable 06/02/17 22:13 Anisocytosis 1+ 06/02/17 22:13 Microcytosis Not Reportable 06/02/17 22:13 Macrocytosis Not Reportable 06/02/17 22:13 Spherocytes Not Reportable 06/02/17 22:13 Pappenheimer Bodies Not Reportable 06/02/17 22:13 Sickle Cells Not Reportable 06/02/17 22:13 Target Cells Not Reportable 06/02/17 22:13 Tear Drop Cells Not Reportable 06/02/17 22:13 Ovalocytes Not Reportable 06/02/17 22:13 Helmet Cells Not Reportable 06/02/17 22:13 Bailey-Greenway Bodies Not Reportable 06/02/17 22:13 Cotter Rings Not Reportable 06/02/17 22:13 Cordell Cells Not Reportable 06/02/17 22:13 Bite Cells Not Reportable 06/02/17 22:13 Crenated Cell Not Reportable 06/02/17 22:13 Elliptocytes 1+ 06/02/17 22:13 Acanthocytes (Spur) Not Reportable 06/02/17 22:13 Rouleaux Not Reportable 06/02/17 22:13 Hemoglobin C Crystals Not Reportable 06/02/17 22:13 Schistocytes Not Reportable 06/02/17 22:13 Malaria parasites Not Reportable 06/02/17 22:13 Roni Bodies Not Reportable 06/02/17 22:13 Hem Pathologist Commnt No 06/02/17 22:13 PT 13.6 Sec. (12.2-14.9) 05/28/17 13:40 INR 1.05 (0.87-1.13) 05/28/17 13:40 APTT 26.7 Sec. (24.2-36.6) 05/28/17 16:30 POC ABG pH 7.345 (7.35-7.45) L 06/03/17 05:58 POC ABG pCO2 39.1 (35-45) 06/03/17 05:58 POC ABG pO2 132 (80-105) H 06/03/17 05:58 POC ABG HCO3 21.4 06/03/17 05:58 POC ABG Total CO2 23 06/03/17 05:58 POC ABG O2 Sat 99 06/03/17 05:58 POC ABG Base Excess -4 06/03/17 05:58 VBG pH 7.341 (7.320-7.420) 05/28/17 13:40 POC Sodium 154 mmol/L (138-146) H 06/02/17 18:53 POC Potassium 2.3 (3.5-4.9) L 06/02/17 18:53 POC Chloride 122 (98-109) H 06/02/17 18:53 FiO2 35 % 06/03/17 05:58 Sodium 138 mmol/L (137-145) 06/06/17 04:34 Potassium 2.8 mmol/L (3.6-5.0) L* D 06/06/17 04:34 Chloride 96.9 mmol/L (98-107) L 06/06/17 04:34 Carbon Dioxide 27 mmol/L (22-30) 06/06/17 04:34 Anion Gap 17 mmol/L 06/06/17 04:34 POC BUN 3 mg/dl (8-26) L 06/02/17 18:53 BUN 10 mg/dL (9-20) 06/06/17 04:34 Creatinine 0.7 mg/dL (0.8-1.5) L 06/06/17 04:34 Estimated GFR > 60 ml/min 06/06/17 04:34 BUN/Creatinine Ratio 14.28 % 06/06/17 04:34 Glucose 104 mg/dL (75-100) H 06/06/17 04:34 POC Glucose 105 (70-105) 06/02/17 18:53 Lactic Acid 1.30 mmol/L (0.7-2.0) 05/28/17 18:27 Calcium 8.8 mg/dL (8.4-10.2) 06/06/17 04:34 Magnesium 2.10 mg/dL (1.7-2.3) 06/05/17 05:52 Total Bilirubin 0.70 mg/dL (0.1-1.2) 05/31/17 05:32 AST 13 units/L (5-40) 05/31/17 05:32 ALT 14 units/L (7-56) 05/31/17 05:32 Alkaline Phosphatase 79 units/L (35-129) 05/31/17 05:32 Total Protein 7.1 g/dL (6.3-8.2) 05/31/17 05:32 Albumin 3.8 g/dL (3.9-5) L 05/31/17 05:32 Albumin/Globulin Ratio 1.2 % 05/31/17 05:32 Triglycerides 60 mg/dL (2-149) 05/30/17 04:38 Cholesterol 217 mg/dL (50-199) H 05/30/17 04:38 LDL Cholesterol Direct 158 mg/dL (50-130) H 05/30/17 04:38 HDL Cholesterol 47 mg/dL (40-59) 05/30/17 04:38 Cholesterol/HDL Ratio 4.61 % 05/30/17 04:38 Urine Color Straw (Yellow) 05/28/17 18:19 Urine Turbidity Clear (Clear) 05/28/17 18:19 Urine pH 7.0 (5.0-7.0) 05/28/17 18:19 Ur Specific [place] 1.005 (1.003-1.030) 05/28/17 18:19 Urine Protein <15 mg/dl mg/dL (Negative) 05/28/17 18:19 Urine Glucose (UA) Neg mg/dL (Negative) 05/28/17 18:19 Urine Ketones Neg mg/dL (Negative) 05/28/17 18:19 Urine Blood Neg (Negative) 05/28/17 18:19 Urine Nitrite Pos (Negative) 05/28/17 18:19 Urine Bilirubin Neg (Negative) 05/28/17 18:19 Urine Urobilinogen < 2.0 mg/dL (<2.0) 05/28/17 18:19 Ur Leukocyte Esterase Mod (Negative) 05/28/17 18:19 Urine WBC (Auto) 1.0 /HPF (0.0-6.0) 05/28/17 18:19 Urine RBC (Auto) 1.0 /HPF (0.0-6.0) 05/28/17 18:19 U Epithel Cells (Auto) 1.0 /HPF (0-13.0) 05/28/17 18:19 Urine Bacteria (Auto) 3+ /HPF (Negative) 05/28/17 18:19 Urine Mucus Few /HPF 05/28/17 18:19 Vancomycin Trough 14.4 ug/mL (5.0-20.0) 06/01/17 06:12 Blood Type B NEGATIVE 06/02/17 04:21 Antibody Screen TNR 06/02/17 04:21 CHRISTIANO Antibody Screen Negative 06/02/17 04:21
[2017-06-07 08:45] VITALS: BP 117/76
--- NOTE | 2017-06-07 09:44 | Progress Note ---
Assessment and Plan Okay to DC home from a vascular standpoint. The patient will follow-up in 2 weeks in clinic. Subjective Date of service: 06/07/17 Principal diagnosis: S/P AORTOBIFEMORAL BYPASS Interval history: Patient is status post aortobifem. No significant complaints of pain. Patient ambulates in the room. Patient is tolerating a soft mechanical diet. Objective - Constitutional Vitals: Vital Signs - 12hr 06/06/17 06/06/17 06/07/17 22:00 23:00 07:00 Temperature 98.4 F 100.5 F H Pulse Rate 111 H 92 H Respiratory 16 20 Rate Blood Pressure 138/75 117/76 O2 Sat by Pulse 97 98 100 Oximetry General appearance: Present: no acute distress - EENT Eyes: PERRL ENT: hearing intact - Neck Neck: supple, normal ROM - Respiratory Respiratory effort: normal Extremities: abnormal (surgical changes to groin and abdomen) - Gastrointestinal General gastrointestinal: Present: deferred - Genitourinary Male genitourinary: deferred - Psychiatric Psychiatric: appropriate mood/affect, cooperative - Labs CBC & Chem 7: 06/06/17 04:34 06/06/17 04:34
[2017-06-07] MEDS: NORVASC PO SCH (09:57)
[2017-06-07] MEDS: PEPCID PO SCH (09:57)
[2017-06-07] MEDS: HCTZ PO SCH (09:57)
[2017-06-07] MEDS: PLAVIX PO SCH (09:58)
[2017-06-07] MEDS: ANTIBIOTIC OINT TP SCH (10:00)
[2017-06-07] MEDS: DULCOLAX PR SCH (10:00)
--- NOTE | 2017-06-07 12:25 | Discharge Summary ---
Providers - Providers Date of Admission: 05/28/17 20:27 Date of discharge: 06/07/17 Attending physician: ROGELIO COOLEY 05/29/17 13:55 Consult to Physician [CONS] Routine Consulting Provider: BRIDGETT LEE Reason For Exam: RLE Occlusion Place consult to:: yes/ dr. lee Notified:: office Phone number called:: yes/ Was contact made?: Yes If yes, spoke with:: tanvir bolton Time called:: 14:36 05/29/17 17:29 Consult to Wound/ET Nurse [CONS] Routine Reason For Exam: wound eval 06/02/17 21:19 Consult to Dietitian/Nutrition [CONS] Routine Physician Instructions: Reason For Exam: Reason for Consult: Evaluate nutritional intake 06/03/17 09:18 Consult to Physician [CONS] Routine Consulting Provider: AISHWARYA GARCIA Reason For Exam: Ecoli ESBL/UTI Place consult to:: Sulema Notified:: yes Was contact made?: Yes If yes, spoke with:: Dr Garcia Time called:: 08:37 06/05/17 11:23 Physical Therapy Evaluation and Treat [CONS] Routine Comment: Reason For Exam: gait training after aorta bifem Primary care physician: KNIFER UP Hospitalization Reason for admission: nonhealing wound of the right foot/PVD/absent pulses right lower extremity Condition: Stable Pertinent studies: Chest x-ray; normal study Lower extremity arterial Doppler; right occluded anterior tibial and dorsalis pedis artery left no identifiable stenosis CTA abdomen; markedly mural thrombus of the abdominal aorta from the level of renal arteries through the bifurcation with significant luminal narrowing Left arterial stent from the common in the throat external iliac artery is completely occluded Markedly luminal narrowing of the left distal popliteal through level of bifurcation Significant stenosis secondary to thrombus at the origin of the right common iliac Echocardiogram; and ejection fraction 50-55% No dilatation of ascending aorta,or aortic root, no pericardial effusion aortic valve is trileaflet Procedures; aorto iliac occlusive disease with nonhealing right foot wound s/p aorto- femoral bypass surgery Hospital course: 47-year-old male patient with significant history of peripheral vascular disease was sent to the emergency room by his vascular surgeon for further evaluation of nonhealing wound previous amputation of first and second digit and peripheral vascular disease and absent pulse of the right lower extremity Patient was admitted to the hospital had extensive vascular evaluation with arterial Doppler of lower extremity CT angiogram of the abdomen Admitted to the hospital symptomatically managed, evaluated by vascular surgeons , cardiology, found to have aorto iliac occlusive disease with non-healing right foot ulcer Patient later underwent Aorto femoral bypass surgery She was closely observed in ICU later transferred to the medical floor, had uncomplicated postoperative period Patient had positive urine and wound cultures, received empiric antibiotics, evaluated by ID, and advised to monitor off antibiotics Patient's symptoms significantly improved, today's comfortably in bed vital signs are stable and cleared by vascular for discharge and follow up with them in the office Patient is hemodynamically and clinically stable at the time of discharge Discharge diagnosis; --Peripheral vascular disease, status postAorto fem bypass surgery --Nonhealing foot ulcer --Sepsis Secondary to urinary tract infection/Escherichia coli ESBL; no antibiotics per ID --Gram-negative wound infection, status post surgery, off antibiotics per ID --Hypertension; --Ongoing tobacco use; smoking cessation counseling done --Dyslipidemia; -- hypokalemia; resolved Disposition: DC/[place]-06 HOME UNDER HOME [facility] Time spent for discharge: 32 min Core Measure Documentation - Palliative Care Palliative Care/ Comfort Measures: Not Applicable - Core Measures Any of the following diagnoses?: none Exam - Constitutional Vitals: Temp Pulse Resp BP Pulse Ox 100.5 F H 92 H 20 117/76 100 06/07/17 07:00 06/07/17 07:00 06/07/17 07:00 06/07/17 09:57 06/07/17 07:00 General appearance: Present: no acute distress, well-nourished - EENT Eyes: Present: PERRL, EOM intact - Neck Neck: Present: supple, normal ROM - Respiratory Respiratory effort: normal Respiratory: negative: rales, rhonchi, wheezing - Cardiovascular Rhythm: regular Heart Sounds: Present: S1 & S2 - Extremities Extremities: no ischemia, No edema - Abdominal General gastrointestinal: Present: soft, non-tender, non-distended, normal bowel sounds, other (surgical wound clean) - Integumentary Integumentary: Present: clear, warm - Musculoskeletal Musculoskeletal: strength equal bilaterally - Psychiatric Psychiatric: appropriate mood/affect, cooperative - Neurologic Neurologic: CNII-XII intact, moves all extremities Plan Activity: advance as tolerated Diet: other (cardiac diet) Special Instructions: smoking cessation Follow up with: PRIMARY CARE, [Primary Care Provider] - 3-5 Days BRIDGETT LEE MD [Staff Physician] - 7 Days Prescriptions: AtorvaSTATin [Lipitor] 40 mg PO QHS #30 tablet Bacitracin Zinc Oint [Antibiotic Oint] 1 applic TP DAILY #1 tube Clopidogrel [Plavix] 75 mg PO QDAY #30 tablet Hydrochlorothiazide [HCTZ] 12.5 mg PO QDAY #30 capsule oxyCODONE /ACETAMINOPHEN [Percocet 5/325] 1 tab PO Q6HR PRN #30 tablet PRN Reason: Pain
[2017-06-09 09:22] LABS: ISTAT K 3.4 (3.5-4.9)
== END 2017-06-07 14:08 | disposition home health service (06) | DRG 854 ==
LOC: ED 13:12 → 3A 20:27 → CC1 06-02 20:03 → 3A 06-04 23:00
PROVIDERS: ADMIT Internal Medicine; ATTEND Internal Medicine
PROC: 04100JK Bypass Abdominal Aorta to Bilateral Femoral Arteries with Synthetic Substitute, Open Approach (ICD-10-PCS; principal; 2017-06-02)
PROC: 5A1935Z Respiratory Ventilation, Less than 24 Consecutive Hours (ICD-10-PCS; 2017-06-02)
PROC: 0BH17EZ Insertion of Endotracheal Airway into Trachea, Via Natural or Artificial Opening (ICD-10-PCS; 2017-06-02)
PROC: 4A033R1 Measurement of Arterial Saturation, Peripheral, Percutaneous Approach (ICD-10-PCS; 2017-06-03)
DX: A41.9 Sepsis, unspecified organism (principal); L03.115 Cellulitis of right lower limb; N17.9 Acute kidney failure, unspecified; E87.2 Acidosis; N39.0 Urinary tract infection, site not specified; I10 Essential (primary) hypertension; F17.210 Nicotine dependence, cigarettes, uncomplicated; I73.9 Peripheral vascular disease, unspecified; R00.0 Tachycardia, unspecified; E78.5 Hyperlipidemia, unspecified; S91.301A Unspecified open wound, right foot, initial encounter; R82.71 Bacteriuria; E87.6 Hypokalemia; B96.20 Unspecified Escherichia coli [E. coli] as the cause of diseases classified elsewhere; Z86.718 Personal history of other venous thrombosis and embolism; Z71.6 Tobacco abuse counseling; Z89.411 Acquired absence of right great toe; Z89.421 Acquired absence of other right toe(s)
CPT/HCPCS: 36415; 36600; 62324; 71010; 75635; 80048; 80053; 80061; 80202; 81001; 82140; 82803; 82805; 83735; 85007; 85014; 85018; 85025; 85610; 85730; 86850; 86900; 86901; 87040; 87076; 87086; 87116; 87186; 87205; 88304; 88311; 93005; 93010; 93306; 93925; 94002; 94003; 94760; A4649; A9270-GY; C1768; C9250; J0360; J1100; J1170; J1644; J2185; J2250; J2270; J2370; J2405; J2543; J2704; J3010; J3370; J3475; J3490; J7030; J7040; J7050; Q9967

== ENCOUNTER 2017-06-18 08:28 | Outpatient (CLI) | payer OTHER ==
[2017-06-18] MEDS ORDERED: XYLOCAINE TOPICAL 4% TP ONE ×2 (09:01→09:13)
== END 2017-06-18 08:29 | disposition home or self-care (01) ==
LOC: WOUND 08:28
PROVIDERS: ATTEND Nurse Practitioner
DX: T81.89XD Other complications of procedures, not elsewhere classified, subsequent encounter (principal); I70.221 Atherosclerosis of native arteries of extremities with rest pain, right leg; I10 Essential (primary) hypertension; I73.9 Peripheral vascular disease, unspecified; F17.200 Nicotine dependence, unspecified, uncomplicated; Z89.419 Acquired absence of unspecified great toe; Z98.62 Peripheral vascular angioplasty status; Y83.8 Other surgical procedures as the cause of abnormal reaction of the patient, or of later complication, without mention of misadventure at the time of the procedure

== ENCOUNTER 2017-06-25 08:47 | Outpatient (CLI) | payer SELFPAY | END 2017-06-25 08:48 | disposition home or self-care (01) | LOC: WOUND 08:47 | PROVIDERS: ATTEND Nurse Practitioner | DX: T81.89XD Other complications of procedures, not elsewhere classified, subsequent encounter (principal); I70.221 Atherosclerosis of native arteries of extremities with rest pain, right leg; I10 Essential (primary) hypertension; I73.9 Peripheral vascular disease, unspecified; Z89.411 Acquired absence of right great toe; F17.210 Nicotine dependence, cigarettes, uncomplicated; Y83.8 Other surgical procedures as the cause of abnormal reaction of the patient, or of later complication, without mention of misadventure at the time of the procedure | CPT/HCPCS: 99213; G0463 ==

== ENCOUNTER 2019-10-09 07:08 | Observation (INO) | payer MEDICAID, SELFPAY ==
[2019-10-09] MEDS ORDERED: ASPIRIN 325 MG TAB PO ONE (07:24)
[2019-10-09] MEDS ORDERED: ASPIRIN 325 MG TAB ONE (07:27)
[2019-10-09 08:01] LABS: Basophils % (Auto) 0.3 % (0.0-1.8); Eosinophils # (Auto) 0.1 K/mm3 (0.0-0.4); Eosinophils % (Auto) 0.8 % (0.0-4.3); Hemoglobin 14.2 gm/dl (11.8-15.2); Lymphocytes # (Auto) 2.2 K/mm3 (1.2-5.4); Lymphocytes % (Auto) 22.8 % (13.4-35.0); Mean Corpuscular HGB Conc 33 % (32-34); Mean Corpuscular Volume 83 fl (84-94); Monocytes # (Auto) 0.4 K/mm3 (0.0-0.8); Monocytes % (Auto) 4.6 % (0.0-7.3); Platelet Count 220 K/mm3 (140-440); Red Blood Count 5.19 M/mm3 (3.65-5.03); Red Cell Distribution Width 13.7 % (13.2-15.2)
[2019-10-09 08:17] LABS: BUN/Creatinine Ratio 11; Blood Urea Nitrogen 14 mg/dL (9-20); Calcium 9.9 mg/dL (8.4-10.2); Hemolysis Index 6
--- NOTE | 2019-10-09 08:26 | XRay Report ---
CHEST PA VIEW INDICATION / CLINICAL INFORMATION: MAIN: Chest Pain . FINDINGS: Comparison is made to a chest radiograph dated 06/05/2017. The lungs are clear. No pleural fluid or pne umothorax. Cardiomediastinal silhouette is normal. No significant change. Signer Name: Florentin Martinez MD Signed: 10/09/2019 8:22 AM Workstation Name: [id number]
[2019-10-09 09:11] LABS: Albumin 4.2 g/dL (3.9-5)
[2019-10-09] MEDS ORDERED: LIDOCAINE VISCOUS 2% 15 ML ORAL LIQD PO ONE (09:17)
[2019-10-09] MEDS ORDERED: ALUM-MAG HYDROXIDE-SIMETHICONE 200-200-20MG/5ML ORAL LIQD 30 ML PO ONE (09:17)
[2019-10-09 09:26] LABS: Alanine Aminotransferase 21 units/L (7-56)
[2019-10-09 09:29] LABS: Bilirubin,Direct < 0.2 mg/dL (0-0.2)
--- NOTE | 2019-10-09 09:36 | Emergency Department Report ---
ED Chest Pain HPI - General Chief Complaint: Chest Pain Stated Complaint: CHEST PAIN/N/V Time Seen by Provider: 10/09/19 08:08 Source: patient Mode of arrival: Ambulatory Limitations: No Limitations - History of Present Illness Initial Comments: 49-year-old -Ind[place]ian male presents to the emergency department with complaint of midsternal chest discomfort that he describes as a deep burning sensation that started this morning. It is associated with some nausea without vomiting and diaphoresis. He denies any shortness of breath, fever, back pain. He did not take anything for her symptoms prior to arrival today. The intensity of his discomfort has improved but has not resolved. No recent travel or sick contacts at home. He has a past mental history that includes hypertension, peripheral vascular disease, previous DVT. He denies any tobacco or illicit drug use. No family history significant for early heart attack or cardiac disease. He does not have a primary care physician or service desk team lead. - Related Data Home Medications Medication Instructions Recorded Confirmed Last Taken Ibuprofen [Motrin 800 MG tab] 800 mg PO Q4-6H PRN 05/28/17 05/28/17 05/28/17 Ranitidine HCl [Heartburn Relief] 75 mg PO QDAY PRN 05/28/17 05/28/17 Unknown Previous Rx's Medication Instructions Recorded Last Taken Type amLODIPine 10 mg PO QDAY #30 tablet 03/27/17 05/26/17 Rx AtorvaSTATin [Lipitor] 40 mg PO QHS #30 tablet 06/07/17 Unknown Rx Bacitracin Zinc Oint [Antibiotic 1 applic TP DAILY #1 tube 06/07/17 Unknown Rx Oint] Clopidogrel [Plavix] 75 mg PO QDAY #30 tablet 06/07/17 Unknown Rx hydroCHLOROthiazide [HCTZ] 12.5 mg PO QDAY #30 capsule 06/07/17 Unknown Rx oxyCODONE /ACETAMINOPHEN [Percocet 1 tab PO Q6HR PRN #30 tablet 06/07/17 Unknown Rx 5/325] Allergies Allergy/AdvReac Type Severity Reaction Status Date / Time No Known Allergies Allergy Verified 10/31/15 12:07 Heart Score - HEART Score History: Slightly suspicious EKG: Non-specific Age: 45-65 Risk factors: 1-2 risk factors Troponin: < normal limit HEART Score: 3 - Critical Actions Critical Actions: 0-3 pts:0.9-1.7%risk of adverse cardiac event.Candidate for discharge ED Review of Systems ROS: Stated complaint: CHEST PAIN/N/V Other details as noted in HPI Comment: All other systems reviewed and negative Constitutional: diaphoresis. denies: chills, fever Eyes: denies: eye pain, vision change ENT: denies: ear pain, throat pain Respiratory: denies: cough, shortness of breath Cardiovascular: chest pain. denies: palpitations Gastrointestinal: nausea. denies: abdominal pain Genitourinary: denies: dysuria, discharge Musculoskeletal: denies: back pain, arthralgia Skin: denies: rash, lesions Neurological: denies: headache, weakness ED Past Medical Hx - Past Medical History Previous Medical History?: Yes Hx Hypertension: Yes Hx Congestive Heart Failure: No Hx Diabetes: No Hx Deep Vein Thrombosis: Yes Hx Seizures: No Hx Asthma: No Hx COPD: No Additional medical history: Vascular Disease - Surgical History Past Surgical History?: Yes Additional Surgical History: Left leg with blood clot,. 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 - Social History Smoking Status: Former Smoker Substance Use Type: None - Medications Home Medications: Home Medications Medication Instructions Recorded Confirmed Last Taken Type amLODIPine 10 mg PO QDAY #30 tablet 03/27/17 05/28/17 05/26/17 Rx Ibuprofen [Motrin 800 MG tab] 800 mg PO Q4-6H PRN 05/28/17 05/28/17 05/28/17 History Ranitidine HCl [Heartburn Relief] 75 mg PO QDAY PRN 05/28/17 05/28/17 Unknown History AtorvaSTATin [Lipitor] 40 mg PO QHS #30 tablet 06/07/17 Unknown Rx Bacitracin Zinc Oint [Antibiotic 1 applic TP DAILY #1 tube 06/07/17 Unknown Rx Oint] Clopidogrel [Plavix] 75 mg PO QDAY #30 tablet 06/07/17 Unknown Rx hydroCHLOROthiazide [HCTZ] 12.5 mg PO QDAY #30 capsule 06/07/17 Unknown Rx oxyCODONE /ACETAMINOPHEN [Percocet 1 tab PO Q6HR PRN #30 tablet 06/07/17 Unknown Rx 5/325] ED Physical Exam - General Limitations: No Limitations - Other Other exam information: GENERAL: The patient is well-developed well-nourished. HENT: Normocephalic. Atraumatic. Patient has moist mucous membranes. EYES: Extraocular motions are intact. NECK: Supple. Trachea is midline. CHEST/LUNGS: Clear to auscultation. There is no respiratory distress noted. HEART/CARDIOVASCULAR: Regular. There is no tachycardia. There is no murmur. ABDOMEN: Abdomen is soft, nontender. Patient has normal bowel sounds. There is no abdominal distention. SKIN: Skin is warm and dry. NEURO: The patient is awake, alert, and oriented. The patient is cooperative. The patient has no focal neurologic deficits. Normal speech. MUSCULOSKELETAL: There is no tenderness or deformity. There is no evidence of acute injury. ED Course Vital Signs 10/09/19 10/09/19 10/09/19 07:22 08:12 09:00 Temperature 98.3 F Pulse Rate 96 H 88 83 Respiratory 18 15 Rate Blood Pressure 138/91 123/79 O2 Sat by Pulse 98 99 Oximetry 10/09/19 10/09/19 10/09/19 10:12 11:00 11:30 Temperature Pulse Rate 88 81 Respiratory 16 17 18 Rate Blood Pressure 118/75 116/67 O2 Sat by Pulse 100 98 100 Oximetry 10/09/19 10/09/19 10/09/19 11:53 12:00 12:23 Temperature Pulse Rate 74 Respiratory 18 14 18 Rate Blood Pressure 122/85 O2 Sat by Pulse 97 Oximetry CHELSEA score - Chelsea Score Age > 65: (0) No Aspirin use within the Past 7 Days: (0) No 3 or more CAD Risk Factors: (0) No 2 or more Angina events in past 24 hrs: (1) Yes Known CAD with more than 50% Stenosis: (0) No Elevated Cardiac Markers: (0) No ST Deviation Greater than 0.5mm: (0) No CHELSEA Score: 1 ED Medical Decision Making - Lab Data Result diagrams: 10/09/19 07:33 10/09/19 07:33 - EKG Data -: EKG Interpreted by Me EKG shows normal: sinus rhythm, axis, intervals, QRS complexes (q waves to in ferior leads), ST-T waves Rate: normal - EKG Data When compared to previous EKG there are: no significant change Interpretation: unchanged when compared t (05/28/17) - Radiology Data Radiology results: report reviewed, image reviewed interpreted by me: Chest x-ray does not show any acute process. There are no pleural effusions, obvious pneumonia and there is no pneumothorax. CTA CHEST WITH IV CONTRAST INDICATION / CLINICAL INFORMATION: CP, elevated dimer. TECHNIQUE: Axial CT images were obtained through the chest after injection of 100 MLO Omnipaque 350 IV contrast. 3 plane MIP and/or 3D reconstructions were produced. All CT scans at this location are performed using CT dose reduction for ALARA by means of automated exposure control. COMPARISON: Chest radiograph from 8:03 AM today FINDINGS: PULMONARY ARTERIES: No pulmonary emboli. THORACIC AORTA: No significant abnormality. HEART: No significant abnormality. CORONARY ARTERIES: No significant calcification. PLEURA: No pleural effusion. No pneumothorax. LYMPH NODES: No adenopathy. LUNGS: No acute air space or interstitial disease. ADDITIONAL FINDINGS: None. UPPER ABDOMEN: No acute findings. SKELETAL STRUCTURES: No significant osseous abnormality. IMPRESSION: 1. No CT evidence for pulmonary embolism. 2. No acute findings. - Medical Decision Making This patient presents to the emergency department with some acute midsternal chest pain that is both a burning sensation and something that he describes as feeling deeper. EKG shows some Q waves to the inferior leads but otherwise there is no ST elevation IL or dysrhythmia. Chest x-ray does not show any pleural effusions, pneumonia, pneumothorax, focal consolidation, or any other acute process. Labs have been unremarkable including negative troponins 2, but the patient did have an elevated and equivocal d-dimer. For this reason a CT angiography of the chest was completed that did not show any pulmonary embolism or any other acute process. The patient was given a GI cocktail provided some transient relief but the pain did return. There may be a gastroenterology component to his discomfort. However he has a heart score of 3, has some continued midsternal chest pain, and has not had a full cardiac evaluation. He has been accepted for admission by the hospitalist, Dr. Brennan. - Differential Diagnosis IL, PE, GERD, Pneumonia Critical Care Time: No Critical care attestation.: If time is entered above; I have spent that time in minutes in the direct care of this critically ill patient, excluding procedure time. ED Disposition Clinical Impression: Acute chest pain Disposition: OP ADMIT IP TO THIS HOSP Is pt being admited?: Yes Condition: Fair Instructions: Chest Pain (ED) Referrals: PRIMARY CARE, [Primary Care Provider] - 3-5 Days Time of Disposition: :23
--- NOTE | 2019-10-09 10:41 | Cat Scan Report ---
CTA CHEST WITH IV CONTRAST INDICATION / CLINICAL INFORMATION: CP, elevated dimer. TECHNIQUE: Axial CT images were obtained through the chest after injection of 100 MLO Omnipaque 350 IV contrast. 3 plane MIP and/or 3D reconstructions were produced. All CT scans at this location are performed usi ng CT dose reduction for CANDELARIO by means of automated exposure control. COMPARISON: Chest radiograph from 8:03 AM today FINDINGS: PULMONARY ARTERIES: No pulmonary emboli. THORACIC AORTA: No significant abnormality. HEART: No significant abnormality. CORONARY ARTERIES: No significant calcification. PLEURA: No pleural effusion. No pneumothorax. LYMPH NODES: No adenopathy. LUNGS: No acute air space or interstitial disease. ADDITIONAL FINDINGS: None. UPPER ABDOMEN: No acute findings. SKELETAL STRUCTURES: No significant osseous abnormality. IMPRESSION: 1. No CT evidence for pulmonary embolism. 2. No acute findings. Signer Name: Floerntin Martinez MD Signed: 10/09/2019 10:36 AM Workstation Name: [id number]
[2019-10-09] MEDS ORDERED: MORPHINE 4 MG/1 ML INJ IV ONE (11:18)
[2019-10-09] MEDS ORDERED: POTASSIUM CHLORIDE ER 20 MEQ TAB PO ONE ×2 (11:19→17:33)
[2019-10-09] MEDS ORDERED: FAMOTIDINE 20 MG/2 ML INJ IV ONE (11:35)
[2019-10-09] MEDS ORDERED: ONDANSETRON 4 MG/2 ML INJ IV ONE (12:30)
[2019-10-09] MEDS ORDERED: ACETAMINOPHEN 325 MG TAB PO PRN (16:58)
[2019-10-09] MEDS ORDERED: ONDANSETRON 4 MG/2 ML INJ IV PRN (16:58)
[2019-10-09] MEDS ORDERED: HYDROmorphone 1 MG/1 ML INJ IV PRN (16:58)
[2019-10-09] MEDS ORDERED: oxyCODONE /ACETAMINOPHEN 5-325MG TAB PO PRN (16:58)
--- NOTE | 2019-10-09 17:23 | History and Physical Report ---
History of Present Illness Date of examination: 10/09/19 Date of admission: 10/09/19 11:23 Chief complaint: Chest pain since last night History of present illness: 49-year-old -[place]ombian male presents with retrosternal chest pain since last night. Chest pain is about 8 on a scale of 1-10. Chest pain is intermittent. Dull to sharp in character. It was associated with some nausea and diaphoresis. No vomiting. No shortness of breath. 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 Patient follows with [facility] for his primary care. Patient has a history of hypertension, hyperlipidemia, coronary artery disease and peripheral arterial disease. Was a former smoker. Past Medical History Previous Medical History Hypertension Deep Vein Thrombosis Peripheral arterial disease Cardiac stents and lower extremity stents Surgical History Past Surgical History?: Yes Additional Surgical History: Left leg with blood clot,. 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 Lower extremity stents and cardiac stents. Social History Smoking Status: Former Smoker Substance Use Type: None Family history Htn - Medications Home Medications: Home Medications Medication Instructions Recorded Confirmed Last Taken Type amLODIPine 10 mg PO QDAY #30 tablet 03/27/17 05/28/17 05/26/17 Rx Ibuprofen [Motrin 800 MG tab] 800 mg PO Q4-6H PRN 05/28/17 05/28/17 05/28/17 History Ranitidine HCl [Heartburn Relief] 75 mg PO QDAY PRN 05/28/17 05/28/17 Unknown History AtorvaSTATin [Lipitor] 40 mg PO QHS #30 tablet 06/07/17 Unknown Rx Bacitracin Zinc Oint [Antibiotic 1 applic TP DAILY #1 tube 06/07/17 Unknown Rx Oint] Clopidogrel [Plavix] 75 mg PO QDAY #30 tablet 06/07/17 Unknown Rx hydroCHLOROthiazide [HCTZ] 12.5 mg PO QDAY #30 capsule 06/07/17 Unknown Rx oxyCODONE /ACETAMINOPHEN [Percocet 1 tab PO Q6HR PRN #30 tablet 06/07/17 Unknown Rx 5/325] Review of Systems ROS: Stated complaint: CHEST PAIN/N/V Other details as noted in HPI Comment: All other systems reviewed and negative Constitutional: diaphoresis. denies: chills, fever Eyes: denies: eye pain, vision change ENT: denies: ear pain, throat pain Respiratory: denies: cough, shortness of breath Cardiovascular: chest pain. denies: palpitations Gastrointestinal: nausea. denies: abdominal pain Genitourinary: denies: dysuria, discharge Musculoskeletal: denies: back pain, arthralgia Skin: denies: rash, lesions Neurological: denies: headache, weakness Medications and Allergies Allergies Allergy/AdvReac Type Severity Reaction Status Date / Time No Known Allergies Allergy Verified 10/31/15 12:07 Home Medications Medication Instructions Recorded Confirmed Last Taken Type hydroCHLOROthiazide [HCTZ] 12.5 mg PO QDAY #30 capsule 06/07/17 10/09/19 1 Day Ago Rx ~10/08/19 Aspirin EC [Halfprin EC] 81 mg PO QDAY 10/09/19 10/09/19 1 Day Ago History ~10/08/19 Clopidogrel [Plavix] 75 mg PO QDAY 10/09/19 10/09/19 1 Day Ago History ~10/08/19 Metformin HCl [metFORMIN] 1,000 mg PO BID 10/09/19 10/09/19 1 Day Ago History ~10/08/19 Sildenafil [Revatio] 50 mg PO PRN 10/09/19 10/09/19 Unknown History Simvastatin 20 mg PO HS 10/09/19 10/09/19 1 Day Ago History ~10/08/19 Active Meds: Active Medications Acetaminophen (Tylenol) 650 mg PO Q4H PRN PRN Reason: Pain MILD(1-3)/Fever >100.5/LANDRY Aspirin (Halfprin Ec) 81 mg PO QDAY [facility] Clopidogrel Bisulfate (Plavix) 75 mg PO QDAY [facility] Famotidine (Pepcid) 20 mg PO BID [facility] Hydrochlorothiazide (Hctz) 12.5 mg PO QDAY [facility] Hydromorphone HCl (Dilaudid) 0.5 mg IV Q3H PRN PRN Reason: Pain , Severe (7-10) Insulin Human Lispro (Humalog) 0 unit SUB-Q [facility]; Protocol Metformin HCl (Glucophage) 500 mg PO BIDDIAB [facility] Ondansetron HCl (Zofran) 4 mg IV Q8H PRN PRN Reason: Nausea And Vomiting Oxycodone/Acetaminophen (Percocet 5/325) 1 tab PO Q6H PRN PRN Reason: Pain, Moderate (4-6) Pravastatin Sodium (Pravachol) 40 mg PO QHS CHANDA Sodium Chloride (Sodium Chloride Flush Syringe 10 Ml) 10 ml IV BID CHANDA Sodium Chloride (Sodium Chloride Flush Syringe 10 Ml) 10 ml IV PRN PRN PRN Reason: LINE FLUSH Exam - Constitutional Vitals: Temp Pulse Resp BP Pulse Ox 98.3 F 79 15 108/68 94 10/09/19 07:22 10/09/19 13:00 10/09/19 13:00 10/09/19 13:00 10/09/19 13:00 General appearance: Present: no acute distress, well-nourished - EENT Eyes: Present: PERRL ENT: hearing intact, clear oral mucosa - Neck Neck: Present: supple, normal ROM - Respiratory Respiratory effort: normal Respiratory: bilateral: CTA - Cardiovascular Heart rate: 78 Rhythm: regular Heart Sounds: Present: S1 & S2. Absent: rub, click - Extremities Extremities: no ischemia, pulses intact, pulses symmetrical, No edema Peripheral Pulses: within normal limits - Abdominal General gastrointestinal: Present: soft, non-tender, non-distended, normal bowel sounds Male genitourinary: Present: normal - Rectal Rectal Exam: deferred - Integumentary Integumentary: Present: clear, warm, dry - Musculoskeletal Musculoskeletal: gait normal, strength equal bilaterally - Psychiatric Psychiatric: appropriate mood/affect, intact judgment & insight - Neurologic Neurologic: CNII-XII intact, moves all extremities - Allied Health Allied health notes reviewed: nursing, case management Results - Labs CBC & Chem 7: 10/09/19 07:33 10/09/19 07:33 Labs: Laboratory Last Values WBC 9.4 K/mm3 (4.5-11.0) 10/09/19 07:33 RBC 5.19 M/mm3 (3.65-5.03) H 10/09/19 07:33 Hgb 14.2 gm/dl (11.8-15.2) 10/09/19 07:33 Hct 43.0 % (35.5-45.6) 10/09/19 07:33 MCV 83 fl (84-94) L 10/09/19 07:33 MCH 27 pg (28-32) L 10/09/19 07:33 MCHC 33 % (32-34) 10/09/19 07:33 RDW 13.7 % (13.2-15.2) 10/09/19 07:33 Plt Count 220 K/mm3 (140-440) 10/09/19 07:33 Lymph % (Auto) 22.8 % (13.4-35.0) 10/09/19 07:33 Lea % (Auto) 4.6 % (0.0-7.3) 10/09/19 07:33 Eos % (Auto) 0.8 % (0.0-4.3) 10/09/19 07:33 Baso % (Auto) 0.3 % (0.0-1.8) 10/09/19 07:33 Lymph # 2.2 K/mm3 (1.2-5.4) 10/09/19 07:33 Lea # 0.4 K/mm3 (0.0-0.8) 10/09/19 07:33 Eos # 0.1 K/mm3 (0.0-0.4) 10/09/19 07:33 Baso # 0.0 K/mm3 (0.0-0.1) 10/09/19 07:33 Seg Neutrophils % 71.5 % (40.0-70.0) H 10/09/19 07:33 Seg Neutrophils # 6.8 K/mm3 (1.8-7.7) 10/09/19 07:33 D-Dimer 567.51 ng/mlDDU (0-234) H 10/09/19 08:39 Sodium 141 mmol/L (137-145) 10/09/19 07:33 Potassium 3.4 mmol/L (3.6-5.0) L 10/09/19 07:33 Chloride 97.3 mmol/L (98-107) L 10/09/19 07:33 Carbon Dioxide 27 mmol/L (22-30) 10/09/19 07:33 Anion Gap 20 mmol/L 10/09/19 07:33 BUN 14 mg/dL (9-20) 10/09/19 07:33 Creatinine 1.3 mg/dL (0.8-1.5) 10/09/19 07:33 Estimated GFR > 60 ml/min 10/09/19 07:33 BUN/Creatinine Ratio 11 % 10/09/19 07:33 Glucose 122 mg/dL (75-100) H 10/09/19 07:33 Calcium 9.9 mg/dL (8.4-10.2) 10/09/19 07:33 Total Bilirubin 0.30 mg/dL (0.1-1.2) 10/09/19 08:39 Direct Bilirubin < 0.2 mg/dL (0-0.2) 10/09/19 08:39 AST 20 units/L (5-40) 10/09/19 08:39 ALT 21 units/L (7-56) 10/09/19 08:39 Alkaline Phosphatase 55 units/L (35-129) 10/09/19 08:39 Troponin T < 0.010 ng/mL (0.00-0.029) 10/09/19 13:23 Total Protein 7.1 g/dL (6.3-8.2) 10/09/19 08:39 Albumin 4.2 g/dL (3.9-5) 10/09/19 08:39 Albumin/Globulin Ratio 1.4 % 10/09/19 08:39 Lipase 25 units/L (13-60) 10/09/19 08:39 Short CBC 10/09/19 Range/Units 07:33 WBC 9.4 (4.5-11.0) K/mm3 Hgb 14.2 (11.8-15.2) gm/dl Hct 43.0 (35.5-45.6) % Plt Count 220 (140-440) K/mm3 BMP 10/09/19 07:33 Sodium 141 Potassium 3.4 L Chloride 97.3 L Carbon Dioxide 27 BUN 14 Creatinine 1.3 Glucose 122 H Calcium 9.9 Cardiac Enzymes 10/09/19 10/09/19 10/09/19 Range/Units 07:33 10:19 13:23 Troponin T < 0.010 < 0.010 < 0.010 (0.00-0.029) ng/mL Liver Function 10/09/19 Range/Units 08:39 Total Bilirubin 0.30 (0.1-1.2) mg/dL Direct Bilirubin < 0.2 (0-0.2) mg/dL AST 20 (5-40) units/L ALT 21 (7-56) units/L Alkaline Phosphatase 55 (35-129) units/L Albumin 4.2 (3.9-5) g/dL - Imaging and Cardiology EKG: report reviewed (sinus rhythm heart rate of 70 per minute, second EKG also normal) Chest x-ray: report reviewed Imaging and Cardiology: Chest x-ray FINDINGS: Comparison is made to a chest radiograph dated 06/05/2017. The lungs are clear. No pleural fluid or pneumothorax. Cardiomediastinal silhouette is normal. No significant change. CTA chest IMPRESSION: 1. No CT evidence for pulmonary embolism. 2. No acute findings. Assessment and Plan Advance Directives: Yes (full code) VTE prophylaxis?: Chemical Plan of care discussed with patient/family: Yes - Patient Problems (1) Acute chest pain Current Visit: Yes Status: Acute Plan to address problem: Chest pain protocol Serial troponins Lexiscan in the morning Cardiology consult requested Differential diagnosis of costochondritis and GERD to be considered (2) Hypertension Current Visit: No Status: Chronic Qualifiers: Hypertension type: essential hypertension Qualified Code(s): I10 - Essential (primary) hypertension Plan to address problem: Blood pressure under control Continue hydrochlorothiazide Add KCl to the regimen--10 mEq every other day (3) Hypokalemia Current Visit: No Status: Acute Plan to address problem: Supplemented Check repeat potassium in the morning (4) Peripheral vascular disease Current Visit: No Status: Chronic Plan to address problem: Patient on Plavix Has stopped smoking (5) Hyperlipidemia Current Visit: Yes Status: Chronic Qualifiers: Hyperlipidemia type: mixed hyperlipidemia Qualified Code(s): E78.2 - Mixed hyperlipidemia Plan to address problem: Continue statins (6) T2DM (type 2 diabetes mellitus) Current Visit: Yes Status: Chronic 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
[2019-10-09] MEDS: hydroCHLOROthiazide 12.5 MG CAP PO SCH (17:51)
[2019-10-09] MEDS: CLOPIDOGREL 75 MG TAB PO SCH (17:51)
[2019-10-09] MEDS: ASPIRIN EC 81 MG TAB PO SCH (17:51)
[2019-10-09] MEDS: POTASSIUM CHLORIDE ER 20 MEQ TAB PO SCH (20:51)
[2019-10-09] MEDS ORDERED: PRAVASTATIN 40 MG TAB PO SCH (22:00)
[2019-10-09] MEDS ORDERED: NON-FORMULARY EACH (Simvastatin [Simvastatin] 20 MG) PO SCH (22:00)
[2019-10-09] MEDS: FAMOTIDINE 20 MG TAB PO SCH (22:07)
[2019-10-09] MEDS: INSULIN LISPRO 100 UNIT/ML SUB-Q SCH (22:11)
[2019-10-10] MEDS ORDERED: REGADENOSON 0.4 MG/5 ML INJ IV ONE (07:08)
[2019-10-10 08:47] LABS: Basophils % (Auto) 0.3 % (0.0-1.8); Eosinophils # (Auto) 0.1 K/mm3 (0.0-0.4); Eosinophils % (Auto) 1.1 % (0.0-4.3); Hematocrit 40.9 % (35.5-45.6); Hemoglobin 13.3 gm/dl (11.8-15.2); Lymphocytes # (Auto) 2.3 K/mm3 (1.2-5.4); Lymphocytes % (Auto) 37.4 % (13.4-35.0); Mean Corpuscular HGB Conc 33 % (32-34); Mean Corpuscular Volume 83 fl (84-94); Monocytes # (Auto) 0.4 K/mm3 (0.0-0.8); Monocytes % (Auto) 6.4 % (0.0-7.3); Platelet Count 210 K/mm3 (140-440); Red Blood Count 4.91 M/mm3 (3.65-5.03); Red Cell Distribution Width 13.9 % (13.2-15.2)
[2019-10-10] MEDS: INSULIN LISPRO 100 UNIT/ML SUB-Q SCH ×3 (08:50→18:16)
[2019-10-10] MEDS: metFORMIN 500 MG TAB PO SCH ×2 (08:50→18:16)
[2019-10-10 09:15] LABS: Alanine Aminotransferase 19 units/L (7-56); Albumin 4.1 g/dL (3.9-5); BUN/Creatinine Ratio 8; Blood Urea Nitrogen 11 mg/dL (9-20); Calcium 8.7 mg/dL (8.4-10.2); Hemolysis Index 4
[2019-10-10 11:08] VITALS: BP 149/81
[2019-10-10] MEDS: CLOPIDOGREL 75 MG TAB PO SCH (12:20)
[2019-10-10] MEDS: FAMOTIDINE 20 MG TAB PO SCH (12:20)
[2019-10-10] MEDS: ASPIRIN EC 81 MG TAB PO SCH (12:20)
[2019-10-10] MEDS: POTASSIUM CHLORIDE ER 20 MEQ TAB PO SCH (12:20)
[2019-10-10] MEDS: hydroCHLOROthiazide 12.5 MG CAP PO SCH (12:21)
--- NOTE | 2019-10-10 14:18 | Event Note ---
Date: 10/10/19 Detailed cardiology consultation dictated. S/p lexiscan MPI stress test this AM which showed fixed defects, no significant ischemia, EF 50%. Currently stable cardiac status. Pt may discharge home from cardiology standpoint. Recommend pt follow up in our office with Dr. Gordon within 1-2 weeks ([phone]). Asa MADISON NP / DR. GORDON
--- NOTE | 2019-10-10 14:21 | Treadmill Report ---
READING PHYSICIAN: Julio Ray MD IMAGING PROTOCOL: The patient received 10 mCi of Technetium 99m Tetrofosmin for resting image and 28 mCi of Technetium 99m Tetrofosmin for stress imaging. The imaging for the whole procedure was completed 30-90 minutes following the initial injection of Technetium 99m Tetrofosmin. The SPECT imaging in the 180 degree arc was performed in the right anterior oblique projection. Computerized reconstruction of the images was performed for analysis. IMAGING RESULTS: Normal cavity size from stress to rest. Normal distribution of radionuclide in the anterior, septal and apical regions. Mild decrease in the mid inferior region seen both in stress and rest. Gated SPECT, EF of 50% ____. The patient infused Lexiscan with no EKG changes. SUMMARY: 1. Negative Lexiscan EKG. 2. No significant stress ischemia. Fixed inferior defect with EF 50%. Otherwise, normal perfusion in anterior, septal and apical regions. Gated SPECT, EF 50%. JOB# [id number] ONI/RAMSEY
--- NOTE | 2019-10-10 16:28 | Discharge Summary ---
Providers - Providers Date of Admission: 10/09/19 11:23 Date of discharge: 10/10/19 Attending physician: JUAN MIGUEL BRIAN 10/09/19 16:58 Consult to Physician [CONS] Routine Comment: Consulting Provider: GAGE VENCES Physician Instructions: Reason For Exam: Chest pain Primary care physician: CLEANERS Hospitalization Condition: Stable Hospital course: Patient is a 49-year-old -[place]og[place] man with a history of hypertension, hyperlipidemia, coronary artery disease and peripheral arterial disease who presents with retrosternal chest pain since last night. Chest pain is about 8 on a scale of 1-10. Chest pain is intermittent. (1) Acute chest pain Current Visit: Yes Status: Acute Plan to address problem: Chest pain protocol Serial troponins Lexiscan negative Cardiology consult requested Differential diagnosis of costochondritis and GERD to be considered (2) Hypertension Current Visit: No Status: Chronic Qualifiers: Hypertension type: essential hypertension Qualified Code(s): I10 - Essential (primary) hypertension Plan to address problem: Blood pressure under control Continue hydrochlorothiazide Add KCl to the regimen--10 mEq every other day (3) Hypokalemia Current Visit: No Status: Acute Plan to address problem: Supplemented Check repeat potassium in the morning (4) Peripheral vascular disease Current Visit: No Status: Chronic Plan to address problem: Patient on Plavix Has stopped smoking (5) Hyperlipidemia Current Visit: Yes Status: Chronic Qualifiers: Hyperlipidemia type: mixed hyperlipidemia Qualified Code(s): E78.2 - Mixed hyperlipidemia Plan to address problem: Continue statins (6) T2DM (type 2 diabetes mellitus) Current Visit: Yes Status: Chronic Qualifiers: Diabetes mellitus mcc 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 Plan to address problem: Patient on metformin 500 mg once a day Accu-Cheks before meals at bedtime hemoglobin A 1C 6.2 Insulin sliding scale coverage with Moderate dose sliding scale (7) DVT prophylaxis Current Visit: No Status: Acute Plan to address problem: Heparin 5000 every 12 and GI prophylaxis initiated Disposition: TO HOME OR SELFCARE Time spent for discharge: 35 minutes Core Measure Documentation - Palliative Care Palliative Care/ Comfort Measures: Not Applicable - Core Measures Any of the following diagnoses?: none - VTE Discharge Requirements Deep Vein Thrombosis/Pulmonary Embolism Present on Admission: No Has pt received <5 days of overlap therapy or INR<2.0: No Anticoagulant overlap therapy prescribed at discharge: No Contraindication No Overlap Therapy order at DC: Not Indicated Exam - Physical Exam Narrative exam: Gen: WDWN, NAD, Awake, Alert, Orientated HEENT: NCAT, EOMI, PERRL, OP Clear Neck: supple, no adenopathy, no thyromegaly, no JVD CVS/Heart: RRR, normal S1S2, pulses present bilaterally Chest/Lungs: CTA B, Symmetrical chest expansion, good air entry bilaterally GI/Abdomen: soft, NTND, good bowel sounds, no guarding or rebound /Bladder: no suprapubic tenderness, no CVA or paraspinal tenderness Extermity/Skin: no c/c/e, no obvious rash MSK: FROM x 4 Neuro: CN 2-12 grossly intact, no new focal deficits Psych: calm - Constitutional Vitals: Temp Pulse Resp BP Pulse Ox 98.1 F 86 19 149/81 99 10/10/19 07:59 10/10/19 10:00 10/10/19 10:00 10/10/19 10:44 10/10/19 10:00 Plan Activity: other (no strenous activity ) Diet: low salt Follow up with: PRIMARY MD HAZEL [Primary Care Provider] - 3-5 Days RASHAD GORDON MD [Staff Physician] - 7 Days
--- NOTE | 2019-10-11 01:06 | Consultation ---
CONSULTATION REQUESTED BY: Dr. Brennan. CONSULTING PHYSICIAN: Dr. Asa Yi. HISTORY OF PRESENT ILLNESS: This is a 49-year-old -[place] male who presented to the Emergency Room with complaints of sudden onset of retrosternal chest pain associated with the diaphoresis and mild nausea, which woke him up from sleep. Pain was quite severe according to him. It was 8/10 as per the patient. He did not have any vomiting. Denied any shortness of breath. No definite radiation into the neck, throat, or arms. Because of the severity and sudden onset of chest pain, the patient decided to come to the Emergency Room. He was evaluated in the Emergency Room and was hospitalized for further management. At this time, the patient said that he is feeling better. He does not have any chest pain or shortness of breath. The patient states that he is known to have coronary artery disease and has had coronary angioplasty with a stent placement in 2013 when he was admitted to [facility]. We do not have the records available at the present time. The patient also gives a history of peripheral arterial disease. 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 The patient also has a history of peripheral arterial disease for which he had stenting of both arteries in the leg. We will try to obtain those records, apparently that was done in 2015. Also, he gives a history of DVT in left lower extremity. In addition, the patient has history of hypertension, hyperlipidemia and type 2 diabetes mellitus for which he is on medications. The patient is currently being followed at [facility]. He is disabled and he does not have any insurance as per the patient, but he has been taking his medications regularly. He is also exercising on a daily basis according to him. FAMILY HISTORY: Positive for hypertension. SOCIAL HISTORY: The patient is disabled and so he is unemployed at the present time. He is a former smoker. Nonalcoholic. ALLERGIES: None known. MEDICATIONS: Currently, the patient is on amlodipine 10 mg p.o. daily, atorvastatin 40 mg p.o. daily, ___ Plavix 75 mg daily, hydrochlorothiazide 12.5 mg daily. The patient also takes some pain medication. REVIEW OF SYSTEMS: CARDIOVASCULAR: As described above. RESPIRATORY: The patient denied any history of wheezing or asthma. The patient denied any history of orthopnea, PND, edema of feet, palpitations, claudications, dizziness or syncope. GI/: Unremarkable. NEUROLOGIC: Unremarkable. PHYSICAL EXAMINATION: GENERAL: This is a 49-year-old -[place]ian male, well-built, well-nourished, in no acute distress at the present time. The patient is conscious, alert, oriented, afebrile. VITAL SIGNS: Normal. SKIN: Warm and dry. HEENT: Pupils are reactive. NECK: Supple. Both carotids are well palpable without any significant bruit. No JVD. CHEST: Lungs are clear. HEART: S1, S2 heard well. Grade 1/6 systolic murmur noted. No diastolic murmur, no gallop rhythm. ABDOMEN: Soft and nontender. No palpable masses. Bowel sounds are heard normally. EXTREMITIES: No edema. No calf tenderness. Good pedal pulses on the right side, somewhat faint on the left side. NEUROLOGICAL: Grossly within normal limits. RECTAL: Not done at this time. EKG done showed normal sinus rhythm, cannot rule out inferior infarct, age undetermined. The patient also had a CTA of the chest. There was no evidence of pulmonary embolism. LABORATORY DATA: The patient's hemoglobin was 14.2, hematocrit 43.0. The patient's CMP showed a blood sugar of 122, potassium was low at 3.4, BUN was 14, creatinine 1.3. CBC was within normal limits. Troponin was normal. Chest x-ray showed no acute findings. ASSESSMENT AND PLAN: 1. Chest pain ? cause, rule out cardiac etiology. At this time, the patient's EKG does not show any acute changes. No evidence of pulmonary embolism. Chest x-ray is normal. EKG showed old inferior infarction. No acute changes. Enzymes were negative for myocardial infarction. So I agree with the present management of resuming his medications and proceeding with Lexiscan thallium test to rule out ischemic chest pain. 2. Coronary artery disease with history of coronary angioplasty and stent placement in 2014 at [facility]. 3. Peripheral arterial disease, status post stenting of both lower extremities in 2016. We will try to obtain those records from. Status post amputation of right big toe and right second toe. 4. Hypertension. Continue present medications. 5. Hyperlipidemia, on Lipitor. Continue the same. 6. Type 2 diabetes mellitus, diet and exercise and medication as needed. This is a 49-year-old male who is now admitted to the hospital with complaints of sudden onset of chest pain with nausea and diaphoresis for further evaluation and management. Examination was unremarkable. No evidence of myocardial infarction or pulmonary embolism. With his prior history of coronary artery disease and peripheral arterial disease and multiple risk factors, ischemic chest pain cannot be ruled out. So, we will go ahead with Lexiscan thallium test as ordered. Continue medications. We will follow the patient along with you. Thank you very much for this consultation. JOB# [id number] JANET/RAMSEY
== END 2019-10-10 19:34 | disposition home or self-care (01) ==
LOC: ED 07:08 → 4A 11:23
PROVIDERS: ADMIT Internal Medicine; ATTEND Internal Medicine
DX: R07.89 Other chest pain (principal); I10 Essential (primary) hypertension; E87.6 Hypokalemia; I73.9 Peripheral vascular disease, unspecified; E78.5 Hyperlipidemia, unspecified; E11.9 Type 2 diabetes mellitus without complications; Z87.891 Personal history of nicotine dependence; Z79.82 Long term (current) use of aspirin; Z79.84 Long term (current) use of oral hypoglycemic drugs
CPT/HCPCS: 36415; 71045; 71275; 78452; 80048; 80053; 80076; 82962; 83036; 83690; 84484; 85025; 85379; 93005; 93010; 93017; 96374; 96375; 99284; A9502; G0378; J2270; J2405; Q9967